=== PATIENT | female | born 1990 | race Caucasian/White ===

== ENCOUNTER 2025-08-14 17:32 | Inpatient (IN) ==
--- NOTE | 2025-08-14 18:01 | Emergency Department Note ---
Impression & Plan Depression with suicidal ideation, Anxiety, Superficial thrombophlebitis of left leg ED Provider Note Provider: Marquez Martinez MD CHIEF COMPLAINT: Anxiety and depression with suicidal thoughts HISTORY OF PRESENT ILLNESS: Patient is a 35-year-old female history of anxiety and depression in the past presenting here today with EMS from home. Patient states that she does not have much support. Cares for her 17-year-old autistic son he requires a lot of care. Has been off medication for several years has a distant history of inpatient psychiatric care for anxiety depression in the past. States her last several months things have worsened. Reached a breaking point where she is not functional and just anxious and feels like her heart beating out of her chest and numb all over. Was seen here about 2 weeks ago for a little bump in her left leg and was told she had a small clot here and to take Motrin but she only took this once she is afraid about the medicine. Patient states at times Ativan's helped her but she tries not to use it. Does not currently have counseling or other medication management at this time. Has had thoughts of wanting to harm herself and not be alive. 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 PAST MEDICAL HISTORY: As noted above MEDICATIONS: Reviewed SOCIAL HISTORY: Denies drug or alcohol use PHYSICAL EXAM: GENERAL: alert and oriented curled up holding her doll in the bed. Head: normocephalic and atraumatic EYES: No injection, discharge or icterus. NECK: Trachea midline. Supple. ENT: Mucous membranes pink and moist. Pharynx without erythema or exudate. LUNGS: Airway patent. No retractions. Breath sounds clear with good air entry bilaterally. HEART: Regular tachycardic rate and rhythm. No chest wall tenderness SKIN: Acyanotic, warm, dry, without rashes EXTREMITIES: Without swelling, tenderness or deformity with a small area of the left kim with slight tenderness but no redness or wound. NEUROLOGICAL: No focal deficits. No aphasia. No facial droop or slurred speech. Ambulatory. Psych: Anxious and tremulous at times. Endorses SI. No reports of HI or hallucinations. Has some insight into limitations of Ativan for her long-term treatment. EK bpm what appears to be a sinus rhythm with significant baseline artifact from tremor. No acute ST segment elevation or depression noted with a QTc of 440. EK bpm normal sinus rhythm. No PVC or PAC. No acute ST segment elevation or depression with QTc of 406. Patient's laboratory studies and imaging reviewed. Differential includes Mood disorder, infection, hypoglycemia, electrolyte abnormalities, cardiac sources, intracerebral event, toxicologic, trauma, neurologic, as well as other pathologies. IMPRESSION/MEDICAL DECISION MAKING: Limited social supports. History of mental health illness and anxiety and depression. Now having SI with severe anxiety issues. Discussed with her and offered Ativan to see if that helped here. Discussed given her thoughts when to harm her self would recommend inpatient treatment. Will obtain basic blood work here. EKG is obtained. I doubt this represents PE at this time or true arrhythmia however. Symptoms seem consistent with anxiety issues. Given that she did have a small recent superficial thrombus of the left leg and still some slight tenderness there an ultrasound was completed to look for any change in this. Again I do not believe this represents PE. EKG obtained initially first 1 with significant baseline artifact and repeated after the Ativan. This was much improved and now without the tremor clearly is not A flutter. Blood work without significant anemia or leukocytosis. Negative troponin. Negative . No significant electrolyte abnormality or renal dysfunction noted. Negative aspirin/Tylenol/alcohol level. Venous ultrasound shows stability of previous superficial venous thrombus still less than 5 cm and very superficial without evidence of DVT. No indication for anticoagulation. Discussed with her continued monitoring, reevaluation in a week and use of NSAIDs. Again she has not been following along with this and recommended she do follow-up in a week for repeat ultrasound to ensure no extension and hopeful resolution. Case management assisted with bed placement. Referrals were made for voluntary inpatient treatment. Accepted to [facility] for voluntary inpatient treatment. DIAGNOSIS: Depression with suicidal ideation, anxiety DISPOSITION: [facility] for voluntary inpatient treatment. Past Med/Surg History Problem List (Updated 08/14/25 @ 23:28 by Marquez Martinez M.D.) Anxiety (Acute) Depression with suicidal ideation (Acute) Superficial thrombophlebitis of left leg (Acute) Medical History Trichomonal vaginitis Social History Smoking Status: Never smoker Preferred Language: Icelandic Feels Safe at Home: Yes Gender Identity: Female Allergies Allergies Allergy/AdvReac Type Severity Reaction Status Date / Time No Known Allergies Allergy Verified 08/01/25 23:59 Home Meds Home Medications Medication Instructions Recorded Confirmed albuterol sulfate 90 mcg/actuation 1 - 2 inh inhalation DIRECTED 08/01/25 08/02/25 aerosol inhaler PRN Shortness Of Breath Or Wheezing lorazepam 1 mg tablet 1 mg PO BID PRN Anxiety 08/01/25 08/02/25 Previous Rx's Medication Instructions Recorded ibuprofen 800 mg tablet 800 mg PO Q8H #90 tabs 08/02/25 Results & Data (ED) Vital Signs Vital Signs - 24 hr 08/14/25 17:38 08/14/25 17:38 08/14/25 20:47 Temperature 36.6 C 36.6 C Temperature Source Oral Oral Pulse Rate 90 Pulse Rate [Right Finger] 90 83 Respiratory Rate 18 20 15 Respiratory Effort / Characteristics Non-Labored Spontaneous Respiratory Depth Normal Blood Pressure 116/88 Blood Pressure [Left Arm] 116/88 96/64 L Blood Pressure Mean 97 Blood Pressure Mean [Left Arm] 97 74 Blood Pressure Position [Left Arm] Right Lateral Pulse Oximetry 99 99 96 Oxygen Delivery Method Room Air Room Air Room Air Sepsis Recent Fever Within 48 Hours No Sepsis New/Unexplained Change in Mental Status No Sepsis Action Taken by Nursing No Action Required 08/14/25 23:24 Temperature Temperature Source Pulse Rate Pulse Rate [Right Finger] Respiratory Rate Respiratory Effort / Characteristics Non-Labored Respiratory Depth Normal Blood Pressure Blood Pressure [Left Arm] Blood Pressure Mean Blood Pressure Mean [Left Arm] Blood Pressure Position [Left Arm] Pulse Oximetry Oxygen Delivery Method Sepsis Recent Fever Within 48 Hours Sepsis New/Unexplained Change in Mental Status Sepsis Action Taken by Nursing Laboratory Data 08/14/25 18:27 08/14/25 18:27 Lab Results 08/14/25 08/14/25 08/14/25 Range/Units 18:27 18:38 19:18 WBC 9.19 (4.8-10.8) K/ul RBC 5.26 (4.20-5.40) M/uL Hgb 12.0 (12.0-16.0) g/dl Hct 38.4 (37.0-47.0) % MCV 73.0 L (80.0-100.0) fL MCH 22.8 L (25.0-34.0) pg MCHC 31.3 L (32.0-36.0) g/dL RDW Std Deviation 42.7 (36.4-46.3) fL RDW Coeff of [place]ouch[place] 16.8 H (11.5-14.5) % Plt Count 230 (130-400) K/uL Immature Gran % (Auto) 0.1 % Neut % (Auto) 60.7 % Lymph % (Auto) 29.1 % Daw[place] % (Auto) 9.0 % Eos % (Auto) 0.3 % Baso % (Auto) 0.8 % Neut # (Auto) 5.58 (1.40-6.50) K/uL Lymph # (Auto) 2.67 (1.20-3.40) K/uL Daw[place] # (Auto) 0.83 H (0.11-0.59) K/uL Eos # (Auto) 0.03 (0.00-0.50) K/uL Baso # (Auto) 0.07 (0.00-0.20) K/uL Immature Gran # (Auto) 0.01 (0.01-0.20) K/uL Sodium 138 (136-145) mmol/L Potassium 3.3 L (3.5-5.1) mmol/L Chloride 105 (98-107) mmol/L Carbon Dioxide 24 (21-32) mmol/L Anion Gap 9 (3-11) BUN 13 (6-23) mg/dl Creatinine 0.56 L (0.6-1.2) mg/dl Est Cr Clr Drug Dosing Not Reportable eGFR 120.47 BUN/Creatinine Ratio 23.2 H (10-20) Glucose 120 H (70-99(Fasting)) mg/dl Calcium 9.2 (8.6-10.3) mg/dl Total Bilirubin 0.3 (0.2-1.0) mg/dl AST 13 (13-39) U/L ALT 12 (7-52) U/L Alkaline Phosphatase 62 (34-104) U/L Troponin I High Sens < 2.3 (0-14) pg/ml Total Protein 8.1 (6.0-8.3) gm/dl Albumin 4.3 (3.4-5.0) gm/dl Globulin 3.8 (2.5-4.0) gm/dl Albumin/Globulin Ratio 1.1 (0.9-2) TSH 1.012 (0.300-4.500) uIu/ml HCG, Qual Negative (Negative) Urine Color Yellow Urine Appearance Clear (Clear) Urine pH 8.5 H (4.5-7.5) Ur Specific [place] 1.027 (1.000-1.030) Urine Protein Trace H (Negative) Urine Glucose (UA) Negative (Negative) Urine Ketones Trace H (Negative) Urine Blood 1+ H (Negative) Urine Nitrite Negative (Negative) Urine Bilirubin Negative (Negative) Urine Urobilinogen Negative (Negative) Ur Leukocyte Esterase Negative (Negative) Urine WBC (Auto) 0-5 (0-5) /hpf Urine RBC (Auto) 3-5 H (0-2) /hpf U Hyaline Cast (Auto) 0-2 (0-2) /lpf U Epithel Cells (Auto) 3-5 H (0-2) /hpf Urine Bacteria (Auto) None Seen (None Seen) Urine Comment Salicylates < 3.0 L (3.0-30) mg/dl Urine Opiates Screen Neg (Neg) Ur Methadone, Qual Neg (Neg) Urine Fentanyl Screen Neg (Neg) Acetaminophen < 3 L (10-30) ug/ml Urine Barbiturates Neg (Neg) Ur Phencyclidine (PCP) Neg (Neg) U Amphetamin/Meth Scrn Neg (Neg) MDMA (Ecstasy) Screen Neg (Neg) U Benzodiazepines Scrn Neg (Neg) Ur Cocaine Metabolite Neg (Neg) U Marijuana (THC) Screen Neg (Neg) Ethyl Alcohol mg/dL < 10.0 (<10.0) mg/dl SARS-CoV-2, RNA, NAAT NEGATIVE (NEGATIVE) Administered Medications Discontinued Medications Lorazepam (Lorazepam 1 Mg Tab) 1 mg PO NOW STA Stop: 08/14/25 17:58 Last Admin: 08/14/25 18:27 Dose: 1 mg Documented By: DAYAMI Imaging Data Radiologist's Impression: Venous Doppler Study 08/14/25 17:57 Exam(s): US VENOUS LEFT LOWER EXTREMITY EXAM: US Duplex Left Lower Extremity Veins CLINICAL HISTORY: swelling, pain, superficial. TECHNIQUE: Real-time duplex ultrasound scan of the left lower extremity veins integrating B-mode two-dimensional vascular structure, Doppler spectral analysis, color flow Doppler imaging and compression. COMPARISON: Left lower extremity venous duplex 08/01/2025 FINDINGS: Deep veins: Unremarkable. No DVT in the visualized common femoral, femoral, proximal deep femoral or popliteal veins. The veins demonstrate normal color flow, are normally compressible, with normal phasic flow and/or augmentation response. The interrogated calf veins are patent. Superficial veins: The previously noted superficial thrombosed vessel immediately deep to the skin surface in the clinical area of concern remains occluded and stable in appearance. No significant soft tissue abnormality identified. No thrombus in the saphenofemoral junction. Soft tissues: No popliteal cyst. IMPRESSION: Negative left lower extremity duplex evaluation. No alteration from the prior examination. Electronically signed by: Darrel Solis MD 08/14/25 21:31 PM Discharge Plan Visit Data Chief Complaint: Mental Health Evaluation Stated Complaint: [facility] ED Provider: Marquez Martinez Discharge Problem: Depression with suicidal ideation, Anxiety, Superficial thrombophlebitis of left leg Patient Disposition: Transfer Behavioral Health Fac Condition: Fair Forms Stand Alone Forms: [facility], Suicide Prevention Resources Prescriptions Prescriptions: No Action lorazepam 1 mg tablet 1 mg PO BID PRN (Reason: Anxiety) albuterol sulfate 90 mcg/actuation Hfa Aerosol Inhaler 1 - 2 inh INHALATION DIRECTED PRN (Reason: Shortness Of Breath Or Wheezing) ibuprofen 800 mg tablet 800 mg PO Q8H Qty: 90 0RF Referrals Referrals: Jose Rahman MD [Primary Care Provider] -
[2025-08-14] MEDS: LORazepam 1 MG TAB PO STA (18:27)
[2025-08-14 18:57] LABS: Hematocrit (blood only) 38.4 % (37.0-47.0); Hemoglobin 12.0 g/dl (12.0-16.0); Mean Corpuscular Hemoglobin 22.8 pg (25.0-34.0); Mean Corpuscular Volume 73.0 fL (80.0-100.0); Platelet Count 230 K/uL (130-400); RDW Standard Deviation 42.7 fL (36.4-46.3); Red Blood Count 5.26 M/uL (4.20-5.40); White Blood Count 9.19 K/ul (4.8-10.8)
[2025-08-14 19:01] LABS: Alanine Aminotransferase 12 U/L (7-52); Albumin Globulin Ratio 1.1 (0.9-2); Albumin Level 4.3 gm/dl (3.4-5.0); Alkaline Phosphatase 62 U/L (34-104); Anion Gap 9 (3-11); Bilirubin,Total 0.3 mg/dl (0.2-1.0); Blood Urea Nitrogen 13 mg/dl (6-23); Calcium 9.2 mg/dl (8.6-10.3); Carbon Dioxide 24 mmol/L (21-32); Chloride 105 mmol/L (98-107); Globulin 3.8 gm/dl (2.5-4.0); Glucose 120 mg/dl (70-99(Fasting)); Potassium 3.3 mmol/L (3.5-5.1); Pregnancy Test, Serum Negative (Negative); Sodium 138 mmol/L (136-145); Total Protein 8.1 gm/dl (6.0-8.3)
[2025-08-14 19:02] LABS: Immature Granulocytes # (auto) 0.01 K/uL (0.01-0.20); Immature Granulocytes % (auto) 0.1 %
[2025-08-14 19:03] LABS: Acetaminophen < 3 ug/ml (10-30); Salicylate < 3.0 mg/dl (3.0-30)
[2025-08-14 19:16] LABS: Thyroid Stimulating Hormone 1.012 uIu/ml (0.300-4.500)
[2025-08-14 19:46] LABS: Appearance Urine Clear (Clear); Bacteria Urine Automated None Seen (None Seen); Cast Urine Automated 0-2 /lpf (0-2); Glucose Urine UA Negative (Negative); WBC Urine Automated 0-5 /hpf (0-5)
[2025-08-14 20:35] LABS: Amphetamines+Metham, Urine Neg (Neg); MDMA (Ecstacy), Urine Neg (Neg); Marijuana, Urine Neg (Neg)
--- NOTE | 2025-08-14 21:31 | Ultrasound Report ---
Exam(s): US VENOUS LEFT LOWER EXTREMITY EXAM: US Duplex Left Lower Extremity Veins CLINICAL HISTORY: swelling, pain, superficial. TECHNIQUE: Real-time duplex ultrasound scan of the left lower extremity veins integrating B-mode two-dimensional vascular structure, Doppler spectral analysis, color flow Doppler imaging and compression. COMPARISON: Left lower extremity venous duplex 08/01/2025 FINDINGS: Deep veins: Unremarkable. No DVT in the visualized common femoral, femoral, proximal deep femoral or popliteal veins. The veins demonstrate normal color flow, are normally compressible, with normal phasic flow and/or augmentation response. The interrogated calf veins are patent. Superficial veins: The previously noted superficial thrombosed vessel immediately deep to the skin surface in the clinical area of concern remains occluded and stable in appearance. No significant soft tissue abnormality identified. No thrombus in the saphenofemoral junction. Soft tissues: No popliteal cyst. IMPRESSION: Negative left lower extremity duplex evaluation. No alteration from the prior examination. Electronically signed by: Darrel Solis MD 08/14/25 21:31 PM
[2025-08-14] MEDS ORDERED: MAGNESIUM HYDROXIDE SUSP 30 ML UDC PO PRN (23:50)
[2025-08-14] MEDS ORDERED: SODIUM CHLORIDE 0.65% NA SOLN 45 ML (OCEAN) PRN (23:50)
[2025-08-14] MEDS ORDERED: BISMUTH SUBSALICYLATE 262 MG CHEW PO PRN (23:50)
[2025-08-14] MEDS ORDERED: ALUMINUM/MAGNESIUM SUSP 30 ML UDC PO PRN (23:50)
[2025-08-14] MEDS ORDERED: ACETAMINOPHEN 325 MG TAB PO PRN (23:50)
[2025-08-15] MEDS: LORazepam 0.5 MG TAB PO STA (02:17)
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
[2025-08-15] MEDS: OPTIRAY 320 125ml IV ONE (14:12)
--- NOTE | 2025-08-15 14:42 | CT Scan Report ---
CT angio chest PE protocol CT DOSE: 328.35 mGy.cm HISTORY: 35 years-old Female with PE. Acute shortness of breath with chest pain TECHNIQUE: Multiple CTA images of the chest were obtained after the intravenous administration of 70 ml Optiray. Coronal and sagittal MIPS were obtained from the axial data set and were submitted for r eview. All measurements were obtained according to NASCET criteria. A dose lowering technique was ut ilized adhering to the principles of ALARA. COMPARISON: CT abdomen and pelvis 12/31/2024 FINDINGS: CTA: Heart is normal in size. No pericardial effusion. Unremarkable thoracic aorta. No pulmonary emboli ar e seen. CT CHEST: No dominant thyroid nodule is seen. Residual thymic tissue in the anterior mediastinum. No pathologic ally adenopathy by CT size criteria. There is no pneumothorax, pleural effusion or focal airspace co nsolidation. The imaged upper abdominal structures are normal. Ovoid soft tissue attenuating mass within the infe romedial quadrant left breast on image 50 series 4 measures 1.5 cm, unchanged. There is an additional 1.2 cm mass within the superior medial right breast with central calcification versus biopsy clip. T he osseous structures appear intact. IMPRESSION: 1. No acute intrathoracic abnormality. 2. No pulmonary emboli. 2. Bilateral breast lesions as above. ACT 112: Negative or not required by law. The above report was generated using voice recognition software. It may contain grammatical, syntax o r spelling errors. Electronically signed by: Quintin Rudd M.D. 08/15/2025 2:40 PM
--- NOTE | 2025-08-15 16:00 | Hospitalist Consultation ---
Date of Consultation August 15, 2025 Assessment & Plan (1) Tachycardia: (2) Superficial thrombophlebitis of left leg: Patient is a 35-year-old female with past medical history significant for seasonal allergic rhinitis, mild intermittent asthma, dysfunctional uterine bleeding, HPV infection, generalized anxiety disorder, depression and borderline personality disorder who is being seen in consultation for evaluation of tachycardia in the setting of recently diagnosed LLE superficial thrombophlebitis. Diagnosed with 1-2 mm clotted superficial vein in the left lower extremity c/w superficial thrombophlebitis on 08/01/2025. Symptomatic management advised. Presented to the ED yesterday with anxiety depression with suicidal ideations. Admitted to the BHU overnight. Had repeat left lower extremity venous Doppler US done yesterday: no DVT, stable appearance of previously seen superficial thrombosed vessel. -No indication for anticoagulation per discussion with ED provider given thrombus still measuring less than 5 cm and very superficial without evidence of DVT. Patient denies any SOB, no reported hypoxic events. Was noted to be tachycardic with heart rate in the 110s to 130s this morning which we were consulted for further evaluation of. Chest CTA PE protocol was obtained and negative for PE, no acute intrathoracic abnormality. Suspect tachycardia related to social stressors, anxiety. Recommend continued symptomatic management of superficial thrombophlebitis including warm compresses, as needed NSAIDs, extremity elevation and compression stocking application. (3) Lesion of breast: Bilateral breast lesions incidentally noted on chest CTA. -1.5 cm ovoid soft tissue attenuating mass within the inferomedial quadrant of the left breast. -1.2 cm mass within the superior medial right breast with central c alcification. Above findings discussed with the patient. Patient reports having a previous biopsy of the left breast lesion "a long time ago" which came back unremarkable per her recollection. Will need close PCP follow-up to arrange gynecologic evaluation for mammogram evaluation and/or breast US with possible biopsy. Thank you for this consultation. We will continue to follow the patient with you tomorrow. You can reach a member of the [facility]ist Team 17/05 via bewarket. DVT Prophylaxis: SCDs/TEDs Code Status: FULL CODE PCP: Jose Rahman MD Disposition: DC planning as per [facility] services Will coordinate PCP follow-up with our nurse navigator for further evaluation of the above breast lesions. Patient seen in collaboration with Dr. Mayo. Please see addendum. I spent a total of 52 minutes coordinating, documenting, and providing care for this patient excluding time spent in the performance of separately billed services or time spent by another provider/QHP. This included personally reviewing all current laboratories and imaging studies, medical reconciliation, outpatient chart review and discussion with specialists. This chart was completed in part utilizing Speech Voice Recognition Software. Grammatical errors, random word insertions, pronoun errors, and incomplete sentences are an occasional consequence of this system due to software limitations, ambient noise, and hardware issues. Any formal questions or concerns about the content, text, or information contained within the body of this dictation should be directly addressed to the provider for clarification. Supervising Physician Co-Signing Physician Notes Pt seen and examined by me, jonas coordinated w/ Rossy Alba PA-C, pls refer to her note above for further detail. Pt is a 35-yo F with medical history significant for seasonal allergic rhinitis, mild intermittent asthma, dysfunctional uterine bleeding, HPV infection, generalized anxiety disorder, depression and borderline personality disorder who is being seen in consultation for evaluation of tachycardia and recently diagnosed LLE superficial thrombophlebitis. History obtained from the patient and associated chart review. Patient seen and examined in the U. Doppler ultrasound completed on 08/01/2025 which showed a 1-2 mm clotted superficial vein on the lateral aspect. Patient had a repeat left lower extremity venous Doppler ultrasound completed yesterday which was negative for DVT, stable superficial thrombosed vessel immediately deep to the skin surface where previously seen on prior study. We were consulted to evaluate patient due to development of tachycardia. No reported SOB or hypoxic events. Patient feeling quite anxious. Was admitted to U overnight due to anxiety and depression with suicidal ideations. CT PE obtained and negat. for PE. + breast masses Currently pt is sitting up in chair in NAD, was playing cards in room.She is awake, alert, oriented, answers appropriately. Denies any chest pain or difficulty taking a deep breath. Says her thrombophlebitis is feeling better overall, less noticable and less painful as it was some weeks ago. Lungs are clear to auscultation and heart sounds are regular, not tachycardic during my exam. No LE edema, no erythema. Discussed CT findings. Says she is aware of mass of left breast and was told before that it was benign. Not aware of anything on the right breast. Made pt aware that she will need to follow up w/ PCP further, pt in understanding. Will follow up w/ pt tmrw, will follow bloodwork and vital signs, / any changes. If no changes in status, may sign off tmrw. MD Gael History of Present Illness Reason for Consultation: Tachycardia, LLE superficial thrombophlebitis Requesting Physician: Macey Blackmon DO Attending Physician: Macey Balckmon DO History of Present Illness Patient is a 35-year-old female with past medical history significant for seasonal allergic rhinitis, mild intermittent asthma, dysfunctional uterine bleeding, HPV infection, generalized anxiety disorder, depression and borderline personality disorder who is being seen in consultation for evaluation of tachycardia and recently diagnosed LLE superficial thrombophlebitis. History obtained from the patient and associated chart review. Patient seen and examined in the BHU with Dr. Mayo. Recently diagnosed with superficial thrombophlebitis of the left lower extremity. Had left lower extremity venous Doppler ultrasound completed on 08/01/2025 which showed a 1-2 mm clotted superficial vein on the lateral aspect. Patient had a repeat left lower extremity venous Doppler ultrasound completed yesterday which was negative for DVT, stable superficial thrombosed vessel immediately deep to the skin surface where previously seen on prior study. We were consulted to evaluate patient due to development of tachycardia. No reported SOB or hypoxic events. Patient feeling quite anxious. Was admitted to BHU overnight due to anxiety and depression with suicidal ideations. Allergies Allergy/AdvReac Type Severity Reaction Status Date / Time No Known Allergies Allergy Verified 08/01/25 23:59 Home Medications Medication Instructions Recorded Confirmed Type albuterol sulfate 90 mcg/actuation 1 - 2 inh inhalation DIRECTED 08/01/25 08/15/25 History aerosol inhaler PRN Shortness Of Breath Or Wheezing ibuprofen 800 mg tablet 800 mg PO Q8H #90 tabs 08/02/25 08/15/25 Rx clindamycin phosphate 1 % lotion topical 08/15/25 History Patient History Medical History Trichomonal vaginitis Social History Smoking Status: Former smoker Preferred Language: Sudanese Communication Ability: Effective [employer] Judge Required: No Beliefs That Will Affect Care: None Feels Safe at Home: Yes Gender Identity: Female Assistive Devices: Glasses Review of Systems Review of Systems: At least ten systems reviewed and negative, except as noted in the HPI. Physical Exam Physical Exam: Please refer to Dr. Mayo's addendum for physical examination findings. Results & Data Results & Data Vital Signs (Past 12 Hours) Vital Signs Temp Pulse Resp BP 08/15/25 06:27 132 H 100/69 08/15/25 06:26 36.8 C 116 H 16 119/71 Laboratory Results Short CBC 08/14/25 Range/Units 18:27 WBC 9.19 (4.8-10.8) K/ul Hgb 12.0 (12.0-16.0) g/dl Hct 38.4 (37.0-47.0) % Plt Count 230 (130-400) K/uL BMP 08/14/25 18:27 Sodium 138 Potassium 3.3 L Chloride 105 Carbon Dioxide 24 BUN 13 Creatinine 0.56 L Glucose 120 H Calcium 9.2 Liver Function 08/14/25 Range/Units 18:27 Total Bilirubin 0.3 (0.2-1.0) mg/dl AST 13 (13-39) U/L ALT 12 (7-52) U/L Alkaline Phosphatase 62 (34-104) U/L Albumin 4.3 (3.4-5.0) gm/dl Urine 08/14/25 Range/Units 19:18 Urine Color Yellow Urine Appearance Clear (Clear) Urine pH 8.5 H (4.5-7.5) Ur Specific [place] 1.027 (1.000-1.030) Urine Protein Trace H (Negative) Urine Glucose (UA) Negative (Negative) Diagnostic Findings Venous Doppler Study 08/14/25 17:57 Exam(s): US VENOUS LEFT LOWER EXTREMITY EXAM: US Duplex Left Lower Extremity Veins CLINICAL HISTORY: swelling, pain, superficial. TECHNIQUE: Real-time duplex ultrasound scan of the left lower extremity veins integrating B-mode two-dimensional vascular structure, Doppler spectral analysis, color flow Doppler imaging and compression. COMPARISON: Left lower extremity venous duplex 08/01/2025 FINDINGS: Deep veins: Unremarkable. No DVT in the visualized common femoral, femoral, proximal deep femoral or popliteal veins. The veins demonstrate normal color flow, are normally compressible, with normal phasic flow and/or augmentation response. The interrogated calf veins are patent. Superficial veins: The previously noted superficial thrombosed vessel immediately deep to the skin surface in the clinical area of concern remains occluded and stable in appearance. No significant soft tissue abnormality identified. No thrombus in the saphenofemoral junction. Soft tissues: No popliteal cyst. IMPRESSION: Negative left lower extremity duplex evaluation. No alteration from the prior examination. Electronically signed by: Darrel Solis MD 08/14/25 21:31 PM Chest CTA 08/15/25 11:07 CT angio chest PE protocol CT DOSE: 328.35 mGy.cm HISTORY: 35 years-old Female with PE. Acute shortness of breath with chest pain TECHNIQUE: Multiple CTA images of the chest were obtained after the intravenous administration of 70 ml Optiray. Coronal and sagittal MIPS were obtained from the axial data set and were submitted for review. All measurements were obtained according to NASCET criteria. A dose lowering technique was utilized adhering to the principles of ALARA. COMPARISON: CT abdomen and pelvis 12/31/2024 FINDINGS: CTA: Heart is normal in size. No pericardial effusion. Unremarkable thoracic aorta. No pulmonary emboli are seen. CT CHEST: No dominant thyroid nodule is seen. Residual thymic tissue in the anterior mediastinum. No pathologically adenopathy by CT size criteria. There is no pneumothorax, pleural effusion or focal airspace consolidation. The imaged upper abdominal structures are normal. Ovoid soft tissue attenuating mass within the inferomedial quadrant left breast on image 50 series 4 measures 1.5 cm, unchanged. There is an additional 1.2 cm mass within the superior medial right breast with central calcification versus biopsy clip. The osseous structures appear intact. IMPRESSION: 1. No acute intrathoracic abnormality. 2. No pulmonary emboli. 2. Bilateral breast lesions as above. ACT 112: Negative or not required by law. The above report was generated using voice recognition software. It may contain grammatical, syntax or spelling errors. Electronically signed by: Quintin Rudd M.D. 08/15/2025 2:40 PM
--- NOTE | 2025-08-16 05:43 | Electrocardiogram Report ---
Test Reason : Blood Pressure : */* mmHG Vent. Rate : 93 BPM Atrial Rate : 394 BPM P-R Int : * ms QRS Dur : 74 ms QT Int : 354 ms P-R-T Axes : 75 88 40 degrees QTcB Int : 440 ms Poor data quality, interpretation may be adversely affected Possible Sinus rhythm with sinus arrhythmia Nonspecific ST abnormality Abnormal ECG When compared with ECG of 26-Apr-2024 20:47, Artifact is now present, which affects rhythm interpretation Confirmed by Cosme Desai ([id number]) on 08/16/2025 5:43:34 AM Referred By: REFERRED SELF Confirmed By: Cosme Desai
--- NOTE | 2025-08-16 05:44 | Electrocardiogram Report ---
Test Reason : Blood Pressure : */* mmHG Vent. Rate : 75 BPM Atrial Rate : 75 BPM P-R Int : 154 ms QRS Dur : 80 ms QT Int : 364 ms P-R-T Axes : 46 51 49 degrees QTcB Int : 406 ms Normal sinus rhythm Normal ECG When compared with ECG of 14-Aug-2025 18:34, Artifact is no longer present Confirmed by Cosme Desai ([id number]) on 08/16/2025 5:43:56 AM Referred By: REFERRED SELF Confirmed By: Cosme Dseai
[2025-08-16 08:15] LABS: Anion Gap 6.0 (3-11); Blood Urea Nitrogen 8.0 mg/dl (6-23); Calcium 8.7 mg/dl (8.6-10.3); Carbon Dioxide 27.0 mmol/L (21-32); Chloride 105.0 mmol/L (98-107); Creatinine Clr Calc Pharmacy 145.4 ml/min; Glucose 104.0 mg/dl (70-99(Fasting)); Potassium 3.9 mmol/L (3.5-5.1); Sodium 138.0 mmol/L (136-145)
[2025-08-16 08:17] LABS: Hematocrit (blood only) 34.1 % (37.0-47.0); Hemoglobin 11.0 g/dl (12.0-16.0); Mean Corpuscular Hemoglobin 23.7 pg (25.0-34.0); Mean Corpuscular Volume 73.3 fL (80.0-100.0); Platelet Count 171 K/uL (130-400); RDW Standard Deviation 42.3 fL (36.4-46.3); Red Blood Count 4.65 M/uL (4.20-5.40); White Blood Count 6.43 K/ul (4.8-10.8)
--- NOTE | 2025-08-16 08:46 | Psychiatric Progress Note ---
Date of Service August 16, 2025 Impression / Recommendations Impression PRASHANT SCHMIDT is a 35-year-old F who currently lives in at home with her 17 y/o son, has a history of depression and anxiety, and was admitted on 08/14/25 23:45 on a 201 voluntary commitment for SI without plan or intent, in the setting of daily panic attacks over the past two weeks, and medication nonadherence over the past 2 years. Diagnostically consistent with severe panic disorder and MDDR, severe. BPD also a possibility. Discussed at length the pharmacologic options for treatment, including primarily returning to Zoloft (if pt is willing to tolerate possible weight gain, trying a different SSRI such as Prozac (which is typically weight neutral), or switching to SNRI class (like Cymbalta). Reviewed R/B of all options. Pt stated she wanted to consider and did not want to decide until the end of the day. I met with her a second time, and she wanted to try Prozac. A: Spent a significant amount of time with patient offering validation of fear, and encouragement. Utilized CBT to address cognitive distortions, and also identified pattern of feeling like a "burden" quickly in relationships. Encouraged pt to utilize propranolol, given sx of high anxiety, and concerns about increased HR and BP earlier today. Reviewed R/B/AE of both propranolol and prozac again. Pt agreed to give Prozac more time. Hospital medicine consult much appreciated, and social work is initiating contact with PCP's office, to get mammogram ordered W[facility]. (1) Panic disorder: (2) Major depressive disorder, recurrent severe without psychotic features: (3) Superficial thrombophlebitis of left leg: Plan 08/16/25: continue current treatment and medications, and give more time. 08/15/25: The patient was admitted to the [facility] ([facility] inpatient mental health unit) on q15 min checks (behavioral with suicide precautions) for safety. The patient will participate in group, recreational, and milieu therapies and will be offered additional individual and family sessions as clinically appropriate. Meds started: Prozac 10mg in AM propranolol 10mg TID PRN anxiety (hold if SBP<100) Home meds continued: none Hospital medicine consult - they ordered CT chest to r/o PE. Overall, I spent a total of 35 minutes on this patients care, including direct evaluation of the patient, counseling the patient, ordering medication, coordination with nursing, interdisciplinary team meeting, and documentation. Inventory Assets Strengths: help seeking Needs: outpatient providers, caregiver support Suicide Risk Level Suicide Risk Level: High-Moderate (q15 min suicide checks) Suicide Risk Level Comments: High-moderate given high level of distress, acute and chronic SI, with hx of multiple suicide attempts and hospitalizations in the past. Does deny recent intent or plan. Does report she feels safe on the unit and can reach out to stay if SI worsens or if pt is unable to maintain safety. Risk Factors Assessment Male: No : Yes Do You Have Access To A Gun?: No Health Problems: Yes Mental Health Diagnoses: Yes Substance Use Disorders: No Previous Attempt: Yes Family History of Suicide: No Previous Psychiatric Hospitalization: Yes Hopelessness: Yes Protective Factors Assessment : No Responsible for Young Children: Yes (son is a minor, but now in CYS custody) Employed: Yes Supportive Family: No Interval History Identifying Information PRASHANT SCHMIDT is a 35-year-old F who currently lives in at home with her 17 y/o son, has a history of depression and anxiety, and was admitted on 08/14/25 23:45 on a 201 voluntary commitment for SI without plan or intent, in the setting of daily panic attacks over the past two weeks, and medication nonadherence over the past 2 years. Diagnostically consistent with severe panic disorder and MDDR, severe. BPD also a possibility. Chief Complaint "I just feel like I need more support". Review of Systems Sleep Information Total Hours of Sleep: 4.75 Sleep Comments: Admitted early in shift Meal Information Percent Meal Consumed - Breakfast: 50 Percent Meal Consumed - Lunch: 50 Percent Meal Consumed - Dinner: 75 Subjective Subjective Patient was seen & assessed and interval progress reviewed with [treatment team] [nursing and social work] per report: yesterday, hospital medicine informed pt of breast lesion seen in CT. She'll need PCP f/u slept 4.75 hours said roommate was snoring, and pt was upset slept in the safe room panic attack right after she was told she'd have a roommate, but said she did want a roommate said PA was due to be worried about starting prozac tearful, guarded mood 2-3/10, feeling "anxious" I met with pt privately in her room. She expressed very high anxiety. She did take prozac 10mg this AM, and "it didn't go well." Stated she at first felt fine, then by 3pm she was having side effects. However, she described AEs as panic attacks and a "head chavez" feeling. I reflected back that this is very similar to how she described anxiety symptoms leading up to this hospi talization. She was extremely worried that her SBP was up to 150 this AM, and HR has been up to 120s. She said she hasn't tried propranolol because she was too afraid. She also says that she's needed high doses of ativan, 1-2 mg, for effectiveness in the past. She reflected that "I think I need more support" from the staff, as she was told she had to wait a minute when she asked for assistance earlier. She also voiced concern that she is "a burden". Physical Exam Psychiatric Orientation: alert and oriented x 3 Apperance: appropriately dressed and appropriately groomed Eye Contact: good eye contact Motor Behavior: steady gait and station, no abnormal motor movements and + psychomotor agitation shaking and bouncing leg Speech: normal rate/rhythm/volume of speech Affect: + constricted affect Mood: + anxious mood Thought Process: goal directed thought process, linear/logical thought process and + perseveration Thought Content: + preoccupation and reality based without delusions Suicidal Thoughts: denies suicidal thoughts, denies suicidal plan and denies waters icidal intent Homicidal Thoughts: denies homicidal thoughts, denies homicidal plan and denies homicidal intent Hallucinations: no auditory hallucinations and no visual hallucinations Cognition: recent memory grossly intact, remote memory grossly intact, attention grossly intact and language grossly intact Estimated Intelligence: consistent with education level Insight: + fair insight Judgment: + fair judgement Vital Signs (Past 24 Hours) Last Vital Signs Temp 36.8 C 08/16/25 06:31 Pulse 114 H 08/16/25 06:32 Resp 16 08/16/25 06:31 BP 109/78 08/16/25 06:32 Pulse Ox 99 08/15/25 00:10 O2 Del Method Room Air 08/15/25 00:10 A physical exam was performed in the ED by Dr. Marquez Martinez for the purposes of medical clearance. I accept that physical as correct and adequate for the purposes of the inpatient physical exam. Results & Data ([facility]) Laboratory Results Laboratory Results - last 24 hr 08/16/25 07:33 WBC 6.43 RBC 4.65 Hgb 11.0 L Hct 34.1 L MCV 73.3 L MCH 23.7 L MCHC 32.3 RDW Std Deviation 42.3 RDW Coeff of [place]ouch[place] 16.1 H Plt Count 171 Sodium 138 Potassium 3.9 Chloride 105 Carbon Dioxide 27 Anion Gap 6 BUN 8 Creatinine 0.49 L Est Cr Clr Drug Dosing 145.4 eGFR 124.41 BUN/Creatinine Ratio 16.3 Glucose 104 H Calcium 8.7 Current Inpatient Medications Current Inpatient Medications: Current Inpatient Medications Acetaminophen (Acetaminophen 325 Mg Tab) 650 mg PO Q4H PRN PRN Reason: Headache or Minor Fever Stop: 09/13/25 23:49 Al Hydrox/Mg Hydrox/Simethicone (Aluminum/Magnesium Susp 30 Ml Udc) 30 ml PO Q4H PRN PRN Reason: GI Upset Stop: 09/13/25 23:49 Bismuth Subsalicylate (Bismuth Subsalicylate 262 Mg Chew) 2 tab PO Q30M PRN PRN Reason: Loose Stool/Diarrhea Stop: 09/13/25 23:49 Fluoxetine HCl (Fluoxetine Hcl 10 Mg Cap) 10 mg PO QAM EDIE Stop: 09/15/25 08:59 Lorazepam (Lorazepam 0.5 Mg Tab) 0.5 mg PO Q6 PRN PRN Reason: Anxiety Stop: 09/14/25 01:27 Magnesium Hydroxide (Magnesium Hydroxide Susp 30 Ml Udc) 30 ml PO DAILY PRN PRN Reason: Constipation Stop: 09/13/25 23:49 Propranolol HCl (Propranolol Hcl 10 Mg Tab) 10 mg PO TID PRN PRN Reason: Anxiety Stop: 09/14/25 13:59 Sodium Chloride (Sodium Chloride 0.65% Na Soln 45 Ml ([facility])) 1 - 2 sprays NA PRN PRN PRN Reason: Nasal Dryness/Congestion Stop: 09/13/25 23:49 Mental Health & Subst Abuse Tx Therapist Name of Therapist: Maggi (Intake) - In person Therapist's Date of Therapist Appointment: 09/18/25 Time of Therapist Appointment: 3:30PM arrival, 4PM appt Therapy Appointment Comment: [address], [address], [place] [address] Mail Inserter Name of Mail Inserter: Pam at [facility] and Maxine at [employer] Post Discharge Appointments Primary Care Physician Name Of Family Doctor/PCP: Dr. Jose Rahman ([facility]) Primary Care Provider Appointment Comment: [address], [place] [id number] Contact Information Discharge Discharge Address: [address] [place] [address] [address] [place] [id number]
--- NOTE | 2025-08-16 13:53 | Hospitalist Progress Note ---
Date of Service August 16, 2025 Assessment & Plan (1) Tachycardia: (2) Superficial thrombophlebitis of left leg: Plan: Patient is a 35-year-old female with past medical history significant for seasonal allergic rhinitis, mild intermittent asthma, dysfunctional uterine bleeding, HPV infection, generalized anxiety disorder, depression and borderline personality disorder who is being seen in consultation for evaluation of tachycardia in the setting of recently diagnosed LLE superficial thrombophlebitis. Diagnosed with 1-2 mm clotted superficial vein in the left lower extremity c/w superficial thrombophlebitis on 08/01/2025. Symptomatic management advised. Presented to the ED 08/14/25 with anxiety depression with suicidal ideations. Admitted to the [facility] overnight on 08/15 Had repeat left lower extremity venous Doppler US done yesterday: no DVT, stable appearance of previously seen superficial thrombosed vessel. -No indication for anticoagulation given thrombus still measuring less than 5 cm and very superficial without evidence of DVT. Patient denies any SOB, no reported hypoxic events. Pt initially was tachycardic with heart rate in the 110s to for which medicine was consulted for further evaluation of. Chest CTA PE protocol was obtained and negative for PE, no acute intrathoracic abnormality. Suspect tachycardia related to social stressors, anxiety. Recommend continued symptomatic management of superficial thrombophlebitis including warm compresses, as needed NSAIDs, extremity elevation and compression stocking application. (3) Lesion of breast: Plan: Bilateral breast lesions incidentally noted on chest CTA. -1.5 cm ovoid soft tissue attenuating mass within the inferomedial quadrant of the left breast. -1.2 cm mass within the superior medial right breast with central calcification. Above findings discussed with the patient. Patient reports having a previous biopsy of the left breast lesion "a long time ago" which came back unremarkable per her recollection. Will need close PCP follow-up to arrange gynecologic evaluation for mammogram evaluation and/or breast US with possible biopsy. She may require general surgery evaluation for breast biopsy. Discussed follow up with VETERINARY MEDICINE DOCTOR and set up mammography prior to discharge to ensure she is not lost to follow up. Pt reports a paternal aunt with breast cancer at age 55, would also recommend genetic counseling evaluation to determine what he risks are for such and closer monitoring. Thank you for this consultation. Medicine will sign off at this time. Please reach out with any concerns or questions or updates needed during her stay here in the hospital. Admission and Anticipated Discharge Date Admission Date: August 14, 2025 Subjective Patient is seen and examined this morning on behavioral health unit 3 S., for she is wrapped up in a blanket holding laptop stuffed animal. When sits down to discuss her knee is bouncing with significant anxiety. She states that she feels worried about starting her new medication this morning, Prozac 10 mg. She has worry about adverse effects. Patient states she has not yet received warm compress for superficial venous thrombosis, we again went over her CTA of the chest reviewing that she does not have a pulmonary emboli. Breast mass was discussed , She reports having history of breast fibroids in the past where they were previously evaluated. patient notes a paternal aunt had breast cancer at age 55, is unaware if she has had genetic testing.She was encouraged to follow-up with PCP, Discussed with VETERINARY MEDICINE DOCTOR regarding genetic testing for breast cancer genes including BRCA1, BRCA2 and have annual mammography. Would recommend that she is scheduled for outpatient mammogram within 6 months prior to her discharge for ease of scheduling/compliance. Can also consider breast ultrasound for further evaluation. 10 point reviewed and otherwise negative. Physical Exam Physical Exam: General: awake, alert, no apparent distress, Thin white female, obviously anxious with blanket wrapped around her, holding stuffed animal, bouncing her leg throughout conversation. Head: Normocephalic, atraumatic ENT: PERRL, EOMI, no pharyngeal exudate, mucous membranes moist Chest: Clear to auscultation, on room air, no adventitious breath sounds Cardiac: Regular rate and rhythm, no murmur, no JVD, normal peripheral pulses, good capillary refill Abdominal: NABS x 4 quadrants, soft, nondistended, nontender to palpation, no rebound or guarding Extremities: Normal inspection, no peripheral edema or erythema, calfs nontender to palpation Psych: Anxious mood and affect Neuro: AAO x 3, strength intact bilaterally and rated 5/5, no motor deficits, speech is clear, no peripheral sensory deficits Results & Data Results & Data Vital Signs (Past 12 Hours) Vital Signs Temp Pulse Resp BP 08/16/25 06:32 114 H 109/78 08/16/25 06:31 36.8 C 101 H 16 116/78
[2025-08-16] MEDS: LORazepam 0.5 MG TAB PO PRN (14:56)
[2025-08-16] MEDS: PROPRANOLOL HCL 10 MG TAB PO PRN (19:01)
--- NOTE | 2025-08-17 09:13 | Psychiatric Progress Note ---
Date of Service August 17, 2025 Impression / Recommendations Impression PRASHANT SCHMIDT is a 35-year-old F who currently lives in at home with her 17 y/o son, has a history of depression and anxiety, and was admitted on 08/14/25 23:45 on a 201 voluntary commitment for SI without plan or intent, in the setting of daily panic attacks over the past two weeks, and medication nonadherence over the past 2 years. Diagnostically consistent with severe panic disorder and MDDR, severe. BPD also a possibility. Discussed at length the pharmacologic options for treatment, including primarily returning to Zoloft (if pt is willing to tolerate possible weight gain, trying a different SSRI such as Prozac (which is typically weight neutral), or switching to SNRI class (like Cymbalta). Reviewed R/B of all options. Pt stated she wanted to consider and did not want to decide until the end of the day. I met with her a second time, and she wanted to try Prozac. A: continue Prozac and give more time. Also encouraged her to utilize the PRN that is available to her and discussed the risks and benefits of it again. Ativan dose was increased to 1 mg as needed yesterday. I also encouraged her to write a list of possible coping skills to try- including to movement based activities, and to cognitively stimulating activities for distraction. She continues to seek out a high level of one-to-one support from staff. Sleep also remains poor, but she continues to decline sleep medication, Due to concerns that she will be oversedated. I do believe that her increased heart rate and blood pressure are related to high anxiety states. However, I will order cortisol level and urine metanephrine to make sure were not missing anything significant. (1) Panic disorder: (2) Major depressive disorder, recurrent severe without psychotic features: (3) Superficial thrombophlebitis of left leg: Plan 08/17/25: Utilize CBT, and encouraged patient to identify coping skills to try out. Continuing to encourage as needed use. Giving more time on Prozac. Also ordered labs to rule out other causes of hypertension and tachycardia, which are occurring intermittently. 08/16/25: continue current treatment and medications, and give more time. 08/15/25: The patient was admitted to the [facility] ([facility] mental [facility] unit) on q15 min checks (behavioral with suicide precautions) for safety. The patient will participate in group, recreational, and milieu therapies and will be offered additional individual and family sessions as clinically appropriate. Meds started: Prozac 10mg in AM propranolol 10mg TID PRN anxiety (hold if SBP<100) Home meds continued: none Hospital medicine consult - they ordered CT chest to r/o PE. Overall, I spent a total of 40 minutes on this patients care, including direct evaluation of the patient, counseling the patient, ordering medication, coordination with nursing, interdisciplinary team meeting, and documentation. Inventory Assets Strengths: help seeking Needs: outpatient providers, caregiver support Suicide Risk Level Suicide Risk Level: High-Moderate (q15 min suicide checks) Suicide Risk Level Comments: High-moderate given high level of distress, acute and chronic SI, with hx of multiple suicide attempts and hospitalizations in the past. Does deny recent intent or plan. Does report she feels safe on the unit and can reach out to stay if SI worsens or if pt is unable to maintain safety. Risk Factors Assessment Male: No : Yes Do You Have Access To A Gun?: No Health Problems: Yes Mental Health Diagnoses: Yes Substance Use Disorders: No Previous Attempt: Yes Family History of Suicide: No Previous Psychiatric Hospitalization: Yes Hopelessness: Yes Protective Factors Assessment : No Responsible for Young Children: Yes (son is a minor, but now in [employer] custody) Employed: Yes Supportive Family: No Interval History Identifying Information PRASHANT SCHMIDT is a 35-year-old F who currently lives in at home with her 17 y/o son, has a history of depression and anxiety, and was admitted on 08/14/25 23:45 on a 201 voluntary commitment for SI without plan or intent, in the setting of daily panic attacks over the past two weeks, and medication nonadherence over the past 2 years. Diagnostically consistent with severe panic disorder and MDDR, severe. BPD also a possibility. Chief Complaint "[]". Review of Systems Sleep Information Total Hours of Sleep: 4.75 Meal Information Percent Meal Consumed - Breakfast: 75 Percent Meal Consumed - Lunch: 50 Percent Meal Consumed - Dinner: 5 Nutrition Comment: Pt refused dinner and requested a bag of pretzels instead. Subjective Subjective Patient was seen & assessed and interval progress reviewed with [treatment team] [nursing and social work] per report: attends and participating in programing reported panic attack yesterday afternoon mood 11/03 met with CM and had intake also met with clergy yesterday also had extensive 1:1 time with nursing, as pt reported she was having a "medical emergency". Vitals at that time did show tachycardia and mild hypertension, but she refused propranolol. Ativan was given. I met with the patient privately in her room. She was shaking/bouncing both legs while speaking. She says she is feeling very anxious. "I am trying to think positive." However, her mind tends to fill with thoughts about negative adverse effects from medication. At the same time she states "I want things to work quicker. I am just tired of feeling like this." Struggled to identify any coping skills other than medication. She said that the only thing that helps is sitting on the couch, curled in a ball, and staring at the wall. Brainstormed together some other options, and identified negative automatic thoughts. Typically the negative automatic thought is "it will not help", which occurs before she tries it. Another thought is "I am too anxious to do that", and we challenged this by saying she would be either anxious doing it or not doing it, and if doing the coping skill may help, it is worth giving a try. Again encouraged her to utilize propranolol as needed, and reviewed the risks and benefits of it again today. Physical Exam Psychiatric Orientation: alert and oriented x 3 Apperance: appropriately dressed, appropriately groomed and appeared stated age Eye Contact: good eye contact Motor Behavior: steady gait and station, no abnormal motor movements and + psychomotor agitation Speech: normal rate/rhythm/volume of speech Affect: + depressed affect, + anxious affect, + constricted affect and mood congruent with affect Mood: + depressed mood and + anxious mood Thought Process: goal directed thought process, linear/logical thought process, clear/coherent thought process and thought association intact Thought Content: + cognitive distortions and reality based without delusions Suicidal Thoughts: denies suicidal plan and denies suicidal intent Reports passive suicidal thoughts today Homicidal Thoughts: denies homicidal thoughts, denies homicidal plan and denies homicidal intent Hallucinations: no auditory hallucinations and no visual hallucinations Cognition: recent memory grossly intact, remote memory grossly intact, attention grossly intact and language grossly intact Estimated Intelligence: average estimated intelligence and consistent with education level Insight: + fair insight Judgment: + fair judgement Vital Signs (Past 24 Hours) Last Vital Signs Temp 36.6 C 08/17/25 06:30 Pulse 99 H 08/17/25 06:30 Resp 16 08/17/25 06:30 BP 122/87 08/17/25 06:30 Pulse Ox 99 08/15/25 00:10 O2 Del Method Room Air 08/15/25 00:10 Results & Data ([facility]) Current Inpatient Medications Current Inpatient Medications: Current Inpatient Medications Acetaminophen (Acetaminophen 325 Mg Tab) 650 mg PO Q4H PRN PRN Reason: Headache or Minor Fever Stop: 09/13/25 23:49 Al Hydrox/Mg Hydrox/Simethicone (Aluminum/Magnesium Susp 30 Ml Udc) 30 ml PO Q4H PRN PRN Reason: GI Upset Stop: 09/13/25 23:49 Bismuth Subsalicylate (Bismuth Subsalicylate 262 Mg Chew) 2 tab PO Q30M PRN PRN Reason: Loose Stool/Diarrhea Stop: 09/13/25 23:49 Fluoxetine HCl (Fluoxetine Hcl 10 Mg Cap) 10 mg PO QAM EDIE Stop: 09/15/25 08:59 Last Admin: 08/17/25 09:01 Dose: 10 mg Lorazepam (Lorazepam 1 Mg Tab) 1 mg PO BID PRN PRN Reason: Anxiety Stop: 09/15/25 19:39 Magnesium Hydroxide (Magnesium Hydroxide Susp 30 Ml Udc) 30 ml PO DAILY PRN PRN Reason: Constipation Stop: 09/13/25 23:49 Propranolol HCl (Propranolol Hcl 10 Mg Tab) 10 mg PO TID PRN PRN Reason: Anxiety Stop: 09/14/25 13:59 Sodium Chloride (Sodium Chloride 0.65% Na Soln 45 Ml ([place])) 1 - 2 sprays NA PRN PRN PRN Reason: Nasal Dryness/Congestion Stop: 09/13/25 23:49 Mental Health & Subst Abuse Tx Therapist Name of Therapist: Maggi (Intake) - In person Therapist's Date of Therapist Appointment: 09/18/25 Time of Therapist Appointment: 3:30PM arrival, 4PM appt Therapy Appointment Comment: [address], [address], [place] [address] Solvent Station Attendant Name of Solvent Station Attendant: Aislinn Hawkins Phone Number for Solvent Station Attendant: [phone] Post Discharge Appointments Primary Care Physician Name Of Family Doctor/PCP: Dr. Pandey ([facility]) [address], [place] [address] Primary Care Date of Future Appointment with PCP: 08/23/25 Time of Appointment with PCP: 1:25PM check in, 1:40PM appt Provider Appointment Comment: Appt scheduled for med managment and PCP notified to refer for mammogram Contact Information Discharge Discharge Address: [address] [place] [address] [address] [id number]
--- NOTE | 2025-08-18 10:00 | Psychiatric Progress Note ---
Date of Service August 18, 2025 Impression / Recommendations Impression PRASHANT SCHMIDT is a 35-year-old F who currently lives in at home with her 17 y/o son, has a history of depression and anxiety, and was admitted on 08/14/25 23:45 on a 201 voluntary commitment for SI without plan or intent, in the setting of daily panic attacks over the past two weeks, and medication nonadherence over the past 2 years. Diagnostically consistent with severe panic disorder and MDDR, severe. BPD also a possibility. Discussed at length the pharmacologic options for treatment, including primarily returning to Zoloft (if pt is willing to tolerate possible weight gain, trying a different SSRI such as Prozac (which is typically weight neutral), or switching to SNRI class (like Cymbalta). Reviewed R/B of all options. Pt stated she wanted to consider and did not want to decide until the end of the day. I met with her a second time, and she wanted to try Prozac. A: Severe panic disorder which has set off major depression. Unfortunately her anxiety is leading to need for frequent reassurance and fears about utilizing medications to help her get relief. Provided significant psychoeducation about anxiety, stress response, panic attacks and safety of medications. She consents to titration of fluoxetine and encouraged ongoing use of propranolol and ativan prn. She declined ativan but will continue to encourage use. labwork reviewed and cortisol normal, pheochromocytoma workup via urine testing pending. MNPR due to intense anxiety and psychic distress Overall, I spent a total of 50 minutes on this case including meeting with the patient, reviewing the chart, nursing report, multidisciplinary team meeting, orders, and documentation. (1) Panic disorder: (2) Major depressive disorder, recurrent severe without psychotic features: (3) Superficial thrombophlebitis of left leg: Plan 08/18/2025: -Increase fluoxetine to 20mg daily -Ativan 1mg BID po prn for panic attacks 08/17/25: Utilize CBT, and encouraged patient to identify coping skills to try out. Continuing to encourage as needed use. Giving more time on Prozac. Also ordered labs to rule out other causes of hypertension and tachycardia, which are occurring intermittently. 08/16/25: continue current treatment and medications, and give more time. 08/15/25: The patient was admitted to the [facility] (locked inpatient mental health unit) on q15 min checks (behavioral with suicide precautions) for safety. The patient will participate in group, recreational, and milieu therapies and will be offered additional individual and family sessions as clinically appropriate. Meds started: Prozac 10mg in AM propranolol 10mg TID PRN anxiety (hold if SBP<100) Home meds continued: none Hospital medicine consult - they ordered CT chest to r/o PE. Inventory Assets Strengths: help seeking Needs: outpatient providers, caregiver support Suicide Risk Level Suicide Risk Level: High-Moderate (q15 min suicide checks) (high level of distress, acute and chronic SI, now with intense panic attacks with hx of multiple suicide attempts and hospitalizations in the past. Does deny recent intent or plan. Does report she feels safe on the unit and can reach out to staff if SI worsens or if she feels unsafe) Suicide Risk Level Comments: Risk Factors Assessment Male: No : Yes Do You Have Access To A Gun?: No Health Problems: Yes Mental Health Diagnoses: Yes Substance Use Disorders: No Previous Attempt: Yes Family History of Suicide: No Previous Psychiatric Hospitalization: Yes Hopelessness: Yes Protective Factors Assessment : No Responsible for Young Children: Yes (son is a minor, but now in [employer] custody) Employed: Yes Supportive Family: No Interval History Identifying Information PRASHANT SCHMIDT is a 35-year-old F who currently lives in at home with her 17 y/o son, has a history of depression and anxiety, and was admitted on 08/14/25 23:45 on a 201 voluntary commitment for SI without plan or intent, in the setting of daily panic attacks over the past two weeks, and medication nonadherence over the past 2 years. Diagnostically consistent with severe panic disorder and MDDR, severe. BPD also a possibility. Chief Complaint "I'm scared to ". Review of Systems Sleep Information Total Hours of Sleep: 2 Meal Information Percent Meal Consumed - Breakfast: 25 Percent Meal Consumed - Lunch: 25 Percent Meal Consumed - Dinner: 15 Nutrition Comment: Pt refused dinner and requested a bag of pretzels instead. Subjective Subjective Patient was seen & assessed and interval progress reviewed with nursing. Requests frequent 1-on-1s. Noticeable help seeking/help rejecting. Swore at counselor last evening after limits were set about picking up her trash in the dayroom. Slept very poorly, requests vital signs be taken overnight due to anxiety about health impacts. Gets very nervous with elevated heart rate. Declining ativan and propranolol. Won't accept medications that are offered. Today asked nurses for frequent reassurance via taking her vital signs that she wasn't dying. Ultimately agreed to take one dose of propranolol. After this asked me to promise that she wouldn't from the propranolol stating she feels "scared ot ". Discussed how exhausted she feels from the constant panic attacks over recent weeks and that she feels so uncomfortable she feels like she'd like to "pass out and " or worries she'd impulsively kill herself if outside of the hospital due to acute distress however she's also terrified of dying. She is able to reflect on responding "really well" to zoloft and celexa in the past and wonders if this means she's more likely to respond well to Prozac. Physical Exam Psychiatric Orientation: alert and oriented x 3 Apperance: appropriately dressed, appropriately groomed and appeared stated age Eye Contact: good eye contact Motor Behavior: steady gait and station and no abnormal motor movements Speech: normal rate/rhythm/volume of speech Affect: + depressed affect, + anxious affect, + tearful affect and mood congruent with affect Mood: + depressed mood and + anxious mood Thought Process: + perseveration Thought Content: + preoccupation and + cognitive distortions Suicidal Thoughts: denies suicidal plan and denies suicidal intent; + reports suicidal thoughts Homicidal Thoughts: denies homicidal thoughts, denies homicidal plan and denies homicidal intent Hallucinations: no auditory hallucinations and no visual hallucinations Cognition: recent memory grossly intact, remote memory grossly intact, attention grossly intact and language grossly intact Estimated Intelligence: average estimated intelligence and consistent with education level Insight: + limited insight Judgment: + limited judgement Vital Signs (Past 24 Hours) Last Vital Signs Temp 36.6 C 08/17/25 06:30 Pulse 95 H 08/18/25 00:02 Resp 16 08/18/25 00:02 BP 128/74 08/18/25 00:02 Pulse Ox 98 08/18/25 00:02 O2 Del Method Room Air 08/18/25 00:02 Results & Data ([facility]) Laboratory Results Laboratory Results - last 24 hr 08/17/25 08/17/25 15:47 16:57 Random Cortisol 11.59 Ur Rillito Metanephrines Pending U Normetanephrine Pending U Total Metanephrines Pending Urine Creatinine Pending Current Inpatient Medications Current Inpatient Medications: Current Inpatient Medications Acetaminophen (Acetaminophen 325 Mg Tab) 650 mg PO Q4H PRN PRN Reason: Headache or Minor Fever Stop: 09/13/25 23:49 Al Hydrox/Mg Hydrox/Simethicone (Aluminum/Magnesium Susp 30 Ml Udc) 30 ml PO Q4H PRN PRN Reason: GI Upset Stop: 09/13/25 23:49 Bismuth Subsalicylate (Bismuth Subsalicylate 262 Mg Chew) 2 tab PO Q30M PRN PRN Reason: Loose Stool/Diarrhea Stop: 09/13/25 23:49 Fluoxetine HCl (Fluoxetine Hcl 10 Mg Cap) 10 mg PO QAM EDIE Stop: 09/15/25 08:59 Last Admin: 08/18/25 09:14 Dose: 10 mg Lorazepam (Lorazepam 1 Mg Tab) 1 mg PO BID PRN PRN Reason: Anxiety Stop: 09/15/25 19:39 Magnesium Hydroxide (Magnesium Hydroxide Susp 30 Ml Udc) 30 ml PO DAILY PRN PRN Reason: Constipation Stop: 09/13/25 23:49 Propranolol HCl (Propranolol Hcl 10 Mg Tab) 10 mg PO TID PRN PRN Reason: Anxiety Stop: 09/14/25 13:59 Sodium Chloride (Sodium Chloride 0.65% Na Soln 45 Ml ([place])) 1 - 2 sprays NA PRN PRN PRN Reason: Nasal Dryness/Congestion Stop: 09/13/25 23:49 Mental Health & Subst Abuse Tx Therapist Name of Therapist: Maggi (Intake) - In person Therapist's Date of Therapist Appointment: 09/18/25 Time of Therapist Appointment: 3:30PM arrival, 4PM appt Therapy Appointment Comment: [address], [address], [facility] [address] Geological Specialist Name of Geological Specialist: Aislinn Hawkins Phone Number for Geological Specialist: [phone] Post Discharge Appointments Primary Care Physician Name Of Family Doctor/PCP: Dr. Pandey ([facility] [place]) [address] [place] [address] [place] [address] Primary Care Date of Future Appointment with PCP: 08/23/25 Time of Appointment with PCP: 1:25PM check in, 1:40PM appt Provider Appointment Comment: Appt scheduled for med managment and PCP notified to refer for mammogram Contact Information Discharge Discharge Address: [address] [place] [address]
--- NOTE | 2025-08-19 09:34 | Psychiatric Progress Note ---
Date of Service August 19, 2025 Impression / Recommendations Impression PRASHANT SCHMIDT is a 35-year-old F who currently lives in at home with her 17 y/o son, has a history of depression and anxiety, and was admitted on 08/14/25 23:45 on a 201 voluntary commitment for SI without plan or intent, in the setting of daily panic attacks over the past two weeks, and medication nonadherence over the past 2 years. Diagnostically consistent with severe panic disorder and MDDR, severe. BPD also a possibility. Discussed at length the pharmacologic options for treatment, including primarily returning to Zoloft (if pt is willing to tolerate possible weight gain, trying a different SSRI such as Prozac (which is typically weight neutral), or switching to SNRI class (like Cymbalta). Reviewed R/B of all options. Pt stated she wanted to consider and did not want to decide until the end of the day. I met with her a second time, and she wanted to try Prozac. A: Severe panic disorder which has set off major depression. She remains very hesitant to use any medication and declined first dose of scheduled propranolol despite significant efforts to provide psychoeducation about benefits and safety of this. Ongoing very poor sleep, she consented to starting mirtazapine to help with depression, anxiety, insomnia. Reviewed side effects including but not limited to: sedation, weight gain. Continues to test limits at times, shows evidence of all or nothing thinking with help seeking/help rejecting behaviors which may represent some cluster B traits/borderline personality disorder as co- occuring and further complicating her treatment. MNPR due to intense anxiety and psychic distress, poor boundaries at times Overall, I spent a total of 55 minutes on this case including meeting with the patient, reviewing the chart, nursing report, multidisciplinary team meeting, orders, and documentation. (1) Panic disorder: (2) Major depressive disorder, recurrent severe without psychotic features: (3) Superficial thrombophlebitis of left leg: Plan 08/19/2025: -Start mirtazapine 15mg HS -Start propranolol 10mg TID scheduled 08/18/2025: -Increase fluoxetine to 20mg daily -Ativan 1mg BID po prn for panic attacks 08/17/25: Utilize CBT, and encouraged patient to identify coping skills to try out. Continuing to encourage as needed use. Giving more time on Prozac. Also ordered labs to rule out other causes of hypertension and tachycardia, which are occurring intermittently. 08/16/25: continue current treatment and medications, and give more time. 08/15/25: The patient was admitted to the [facility] ([facility] mental health unit) on q15 min checks (behavioral with suicide precautions) for safety. The patient will participate in group, recreational, and milieu therapies and will be offered additional individual and family sessions as clinically appropriate. Meds started: Prozac 10mg in AM propranolol 10mg TID PRN anxiety (hold if SBP<100) Home meds continued: none Hospital medicine consult - they ordered CT chest to r/o PE. Inventory Assets Strengths: help seeking Needs: outpatient providers, caregiver support Suicide Risk Level Suicide Risk Level: High-Moderate (q15 min suicide checks) (high level of distress, acute and chronic SI, now with intense panic attacks with hx of multiple suicide attempts and hospitalizations in the past. Does deny recent intent or plan. Does report she feels safe on the unit and can reach out to staff if SI worsens or if she feels unsafe) Suicide Risk Level Comments: Risk Factors Assessment Male: No : Yes Do You Have Access To A Gun?: No Health Problems: Yes Mental Health Diagnoses: Yes Substance Use Disorders: No Previous Attempt: Yes Family History of Suicide: No Previous Psychiatric Hospitalization: Yes Hopelessness: Yes Protective Factors Assessment : No Responsible for Young Children: Yes (son is a minor, but now in C[employer] custody) Employed: Yes Supportive Family: No Interval History Identifying Information PRASHANT SCHMIDT is a 35-year-old F who currently lives in at home with her 17 y/o son, has a history of depression and anxiety, and was admitted on 08/14/25 23:45 on a 201 voluntary commitment for SI without plan or intent, in the setting of daily panic attacks over the past two weeks, and medication nonadherence over the past 2 years. Diagnostically consistent with severe panic disorder and MDDR, severe. BPD also a possibility. Chief Complaint "Worried". Review of Systems Sleep Information Total Hours of Sleep: 1.75 Meal Information Percent Meal Consumed - Breakfast: 10 Percent Meal Consumed - Lunch: 15 Percent Meal Consumed - Dinner: 10 Nutrition Comment: Subjective Subjective Patient was seen & assessed and interval progress reviewed with nursing and social work. Continues to ruminate on fears of dying or having medical issue and needing frequent reassurance. She only slept 1.75 hours, frequent requests to have her vital signs checked. She declined any prns after one dose of propranolo l yesterday which did bring down her HR. Rated her mood as "1". She spoke to her father on the phone for about an hour yesterday. Tearful at times. Today reports ongoing intense anxiety and panic symptoms. She doesn't want to take any benzodiazepines due to concerns of becoming dependent on these with family and personal history of substance use in the past. She found the propranolol helpful yesterday but declined further doses, she remains scared that medications will harm her. Worries and seeks reassurance that her heart is not shutting down. Asks for a hug twice, reviewed professional boundaries and that personal contact with providers and staff is not appropriate but that we are here to offer support in other ways. Reviewed other comfort items including weighted blanket. She noted that she feels unloved and that she seeks out hugs because "id on't have a mom or a dad". Reflected on her father inviting her for Thanksgiving, she noted that he can be distant and not supportive. Emphasized the importance of treatment and discussed recommendation to start mirtazapine and scheduled propranolol, which she can refuse, due to her hesistancy to ask for any prn medication. She agreed to this. Physical Exam Psychiatric Orientation: alert and oriented x 3 Apperance: appropriately dressed, appropriately groomed and appeared stated age Eye Contact: good eye contact Motor Behavior: steady gait and station and no abnormal motor movements Speech: normal rate/rhythm/volume of speech Affect: + depressed affect, + anxious affect, + tearful affect and mood congruent with affect Mood: + depressed mood and + anxious mood Thought Process: + perseveration Thought Content: + preoccupation and + cognitive distortions Suicidal Thoughts: denies suicidal plan and denies suicidal intent; + reports suicidal thoughts Homicidal Thoughts: denies homicidal thoughts, denies homicidal plan and denies homicidal intent Hallucinations: no auditory hallucinations and no visual hallucinations Cognition: recent memory grossly intact, remote memory grossly intact, attention grossly intact and language grossly intact Estimated Intelligence: average estimated intelligence and consistent with education level Insight: + limited insight Judgment: + limited judgement Vital Signs (Past 24 Hours) Last Vital Signs Temp 36.7 C 08/19/25 06:31 Pulse 99 H 08/19/25 06:31 Resp 20 08/19/25 06:31 BP 126/84 08/19/25 06:34 Pulse Ox 100 08/19/25 06:31 O2 Del Method Room Air 08/19/25 06:31 Results & Data ([facility]) Current Inpatient Medications Current Inpatient Medications: Current Inpatient Medications Acetaminophen (Acetaminophen 325 Mg Tab) 650 mg PO Q4H PRN PRN Reason: Headache or Minor Fever Stop: 09/13/25 23:49 Al Hydrox/Mg Hydrox/Simethicone (Aluminum/Magnesium Susp 30 Ml Udc) 30 ml PO Q4H PRN PRN Reason: GI Upset Stop: 09/13/25 23:49 Bismuth Subsalicylate (Bismuth Subsalicylate 262 Mg Chew) 2 tab PO Q30M PRN PRN Reason: Loose Stool/Diarrhea Stop: 09/13/25 23:49 Fluoxetine HCl (Fluoxetine Hcl 20 Mg Cap) 20 mg PO QAM EDIE Stop: 09/18/25 08:59 Last Admin: 08/19/25 09:10 Dose: 20 mg Lorazepam (Lorazepam 1 Mg Tab) 1 mg PO BID PRN PRN Reason: Anxiety Stop: 09/15/25 19:39 Magnesium Hydroxide (Magnesium Hydroxide Susp 30 Ml Udc) 30 ml PO DAILY PRN PRN Reason: Constipation Stop: 09/13/25 23:49 Propranolol HCl (Propranolol Hcl 10 Mg Tab) 10 mg PO TID PRN PRN Reason: Anxiety Stop: 09/14/25 13:59 Last Admin: 08/18/25 13:38 Dose: 10 mg Sodium Chloride (Sodium Chloride 0.65% Na Soln 45 Ml ([place])) 1 - 2 sprays NA PRN PRN PRN Reason: Nasal Dryness/Congestion Stop: 09/13/25 23:49 Mental Health & Subst Abuse Tx Therapist Name of Therapist: Maggi (Intake) - In person Therapist's Date of Therapist Appointment: 09/18/25 Time of Therapist Appointment: 3:30PM arrival, 4PM appt Therapy Appointment Comment: [address], [address], [place] [address] Kitchen Supervisor Name of Kitchen Supervisor: Aislinn Hawkins Phone Number for Kitchen Supervisor: [phone] Post Discharge Appointments Primary Care Physician Name Of Family Doctor/PCP: Dr. Pandey ([facility]) [address], [place] [address] Primary Care Date of Future Appointment with PCP: 08/23/25 Time of Appointment with PCP: 1:25PM check in, 1:40PM appt Provider Appointment Comment: Appt scheduled for med managment and PCP notified to refer for mammogram Contact Information Discharge Discharge Address: [address] [place] [address] [address] [place] [address]
[2025-08-19] MEDS: PROPRANOLOL HCL 10 MG TAB PO SCH (12:14)
[2025-08-19] MEDS: LORazepam 1 MG TAB PO PRN (18:22)
[2025-08-19] MEDS: MIRTAZAPINE TAB 15 MG TAB PO SCH (23:07)
--- NOTE | 2025-08-20 09:08 | Psychiatric Progress Note ---
Date of Service August 20, 2025 Impression / Recommendations Impression PRASHANT SCHMIDT is a 35-year-old F who currently lives in at home with her 17 y/o son, has a history of depression and anxiety, and was admitted on 08/14/25 23:45 on a 201 voluntary commitment for SI without plan or intent, in the setting of daily panic attacks over the past two weeks, and medication nonadherence over the past 2 years. Diagnostically consistent with severe panic disorder and MDDR, severe. BPD also a possibility. Discussed at length the pharmacologic options for treatment, including primarily returning to Zoloft (if pt is willing to tolerate possible weight gain, trying a different SSRI such as Prozac (which is typically weight neutral), or switching to SNRI class (like Cymbalta). Reviewed R/B of all options. Pt stated she wanted to consider and did not want to decide until the end of the day. I met with her a second time, and she wanted to try Prozac. A: Severe panic disorder which has set off major depression. She remains very hesitant to use any medication and declined mirtazapine last night but slept a little bit more with ativan prn (though still minimal). Encouragingly she is taking fluoxetine and attending groups. Encouraged use of prescribed medications and safety of these alone and in combination. MNPR due to intense anxiety and psychic distress, poor boundaries at times Overall, I spent a total of 45 minutes on this case including meeting with the patient, reviewing the chart, nursing report, multidisciplinary team meeting, orders, and documentation. (1) Panic disorder: (2) Major depressive disorder, recurrent severe without psychotic features: (3) Superficial thrombophlebitis of left leg: Plan 08/20/2025: -Continue current medications and tx plan 08/19/2025: -Start mirtazapine 15mg HS -Start propranolol 10mg TID scheduled 08/18/2025: -Increase fluoxetine to 20mg daily -Ativan 1mg BID po prn for panic attacks 08/17/25: Utilize CBT, and encouraged patient to identify coping skills to try out. Continuing to encourage as needed use. Giving more time on Prozac. Also ordered labs to rule out other causes of hypertension and tachycardia, which are occurring intermittently. 08/16/25: continue current treatment and medications, and give more time. 08/15/25: The patient was admitted to the [facility] ([facility] inpatient mental health unit) on q15 min checks (behavioral with suicide precautions) for safety. The patient will participate in group, recreational, and milieu therapies and will be offered additional individual and family sessions as clinically appropriate. Meds started: Prozac 10mg in AM propranolol 10mg TID PRN anxiety (hold if SBP<100) Home meds continued: none Hospital medicine consult - they ordered CT chest to r/o PE. Inventory Assets Strengths: help seeking Needs: outpatient providers, caregiver support Suicide Risk Level Suicide Risk Level: High-Moderate (q15 min suicide checks) (high level of distress, acute and chronic SI, now with intense panic attacks with hx of multiple suicide attempts and hospitalizations in the past. Does deny recent intent or plan. Does report she feels safe on the unit and can reach out to staff if SI worsens or if she feels unsafe) Suicide Risk Level Comments: Risk Factors Assessment Male: No : Yes Do You Have Access To A Gun?: No Health Problems: Yes Mental Health Diagnoses: Yes Substance Use Disorders: No Previous Attempt: Yes Family History of Suicide: No Previous Psychiatric Hospitalization: Yes Hopelessness: Yes Protective Factors Assessment : No Responsible for Young Children: Yes (son is a minor, but now in [employer] custody) Employed: Yes Supportive Family: No Interval History Identifying Information PRASHANT SCHMIDT is a 35-year-old F who currently lives in at home with her 17 y/o son, has a history of depression and anxiety, and was admitted on 08/14/25 23:45 on a 201 voluntary commitment for SI without plan or intent, in the setting of daily panic attacks over the past two weeks, and medication nonadherence over the past 2 years. Diagnostically consistent with severe panic disorder and MDDR, severe. BPD also a possibility. Chief Complaint "My brain keeps telling me I'm dying". Review of Systems Sleep Information Total Hours of Sleep: 4.5 Meal Information Percent Meal Consumed - Breakfast: 10 Percent Meal Consumed - Lunch: 75 Percent Meal Consumed - Dinner: 0 Subjective Subjective Patient was seen & assessed and interval progress reviewed with treatment team. She took prn ativan yesterday evening and she felt this wasn't helpful for her HR and BP but then vital sign checks showed it had lessened. Slept a little more. This morning woke concerned her neck was pulsating. Showered last night for the first time. Refused mirtazapine last evening. Today remains very anxious. Worries it could be due to her fluoxetine but she also recognizes that she's responded well to SSRIs in the past. Reflects on feeling constantly like she's dying and feels like "I'm right on the edge of losing my mind". She had a panic attack that woke her from sleep last night and she woke short of breath which she was very distressed by. She continues to decline propranolol today. Feels the ativan helps but she worries about becoming dependent on it. Discussed importance of using medications to help with symptoms and strongly encouraged her to use mirtazapine tonight to help with sleep. Discussed benefits and reviewed strong safety profile. Physical Exam Psychiatric Orientation: alert and oriented x 3 Apperance: appropriately dressed, appropriately groomed and appeared stated age Eye Contact: good eye contact Motor Behavior: steady gait and station and no abnormal motor movements Speech: normal rate/rhythm/volume of speech Affect: + depressed affect, + anxious affect, + tearful affect and mood congruent with affect Mood: + depressed mood and + anxious mood Thought Process: + perseveration Thought Content: + preoccupation and + cognitive distortions Suicidal Thoughts: denies suicidal plan and denies suicidal intent; + reports suicidal thoughts Homicidal Thoughts: denies homicidal thoughts, denies homicidal plan and denies homicidal intent Hallucinations: no auditory hallucinations and no visual hallucinations Cognition: recent memory grossly intact, remote memory grossly intact, attention grossly intact and language grossly intact Estimated Intelligence: average estimated intelligence and consistent with education level Insight: + limited insight Judgment: + limited judgement Vital Signs (Past 24 Hours) Last Vital Signs Temp 36.7 C 08/20/25 06:39 Pulse 98 H 08/20/25 06:39 Resp 16 08/20/25 06:39 BP 113/77 08/20/25 06:39 Pulse Ox 99 08/20/25 06:39 O2 Del Method Room Air 08/20/25 06:39 Results & Data ([facility]) Current Inpatient Medications Current Inpatient Medications: Current Inpatient Medications Acetaminophen (Acetaminophen 325 Mg Tab) 650 mg PO Q4H PRN PRN Reason: Headache or Minor Fever Stop: 09/13/25 23:49 Al Hydrox/Mg Hydrox/Simethicone (Aluminum/Magnesium Susp 30 Ml Udc) 30 ml PO Q4H PRN PRN Reason: GI Upset Stop: 09/13/25 23:49 Bismuth Subsalicylate (Bismuth Subsalicylate 262 Mg Chew) 2 tab PO Q30M PRN PRN Reason: Loose Stool/Diarrhea Stop: 09/13/25 23:49 Fluoxetine HCl (Fluoxetine Hcl 20 Mg Cap) 20 mg PO QAM EDIE Stop: 09/18/25 08:59 Last Admin: 08/19/25 09:10 Dose: 20 mg Lorazepam (Lorazepam 1 Mg Tab) 1 mg PO BID PRN PRN Reason: Anxiety Stop: 09/15/25 19:39 Last Admin: 08/19/25 18:22 Dose: 1 mg Magnesium Hydroxide (Magnesium Hydroxide Susp 30 Ml Udc) 30 ml PO DAILY PRN PRN Reason: Constipation Stop: 09/13/25 23:49 Mirtazapine (Mirtazapine Tab 15 Mg Tab) 15 mg PO HS EDIE Stop: 09/18/25 21:59 Last Admin: 08/19/25 23:07 Dose: Not Given Propranolol HCl (Propranolol Hcl 10 Mg Tab) 10 mg PO TID EDIE Stop: 09/18/25 11:29 Last Admin: 08/19/25 23:07 Dose: Not Given Sodium Chloride (Sodium Chloride 0.65% Na Soln 45 Ml ([place])) 1 - 2 sprays NA PRN PRN PRN Reason: Nasal Dryness/Congestion Stop: 09/13/25 23:49 Mental Health & Subst Abuse Tx Therapist Name of Therapist: Maggi (Intake) - In person Therapist's Date of Therapist Appointment: 09/18/25 Time of Therapist Appointment: 3:30PM arrival, 4PM appt Therapy Appointment Comment: [address], [address], [place] [address] Electric Switch Repairer Name of Electric Switch Repairer: Aislinn Hawkins Phone Number for Electric Switch Repairer: [phone] Post Discharge Appointments Primary Care Physician Name Of Family Doctor/PCP: Dr. Pandey ([facility] [place]) [address] [place] [address] [place] [address] Primary Care Date of Future Appointment with PCP: 08/23/25 Time of Appointment with PCP: 1:25PM check in, 1:40PM appt Provider Appointment Comment: Appt scheduled for med managment and PCP notified to refer for mammogram Contact Information Discharge Discharge Address: [facility] [address] [place] [address] [place] [address]
--- NOTE | 2025-08-21 09:13 | Psychiatric Progress Note ---
Date of Service August 21, 2025 Impression / Recommendations Impression PRASHANT SCHMIDT is a 35-year-old F who currently lives in at home with her 17 y/o son, has a history of depression and anxiety, and was admitted on 08/14/25 23:45 on a 201 voluntary commitment for SI without plan or intent, in the setting of daily panic attacks over the past two weeks, and medication nonadherence over the past 2 years. Diagnostically consistent with severe panic disorder and MDDR, severe. BPD also a possibility. Discussed at length the pharmacologic options for treatment, including primarily returning to Zoloft (if pt is willing to tolerate possible weight gain, trying a different SSRI such as Prozac (which is typically weight neutral), or switching to SNRI class (like Cymbalta). Reviewed R/B of all options. Pt stated she wanted to consider and did not want to decide until the end of the day. I met with her a second time, and she wanted to try Prozac. A: Severe panic disorder which has set off major depression with increased cluster B traits with significant help seeking/ help rejecting and catastrophizing. She remains very hesitant to use any medication and again declined mirtazapine last night. Today she also refused fluoxetine. Ongoing efforts via motivational interviewing, psychoeducation, validation and support as well as CBT skills. MNPR due to intense anxiety and psychic distress, poor boundaries at times Overall, I spent a total of 35 minutes on this case including meeting with the patient, reviewing the chart, nursing report, multidisciplinary team meeting, orders, and documentation. (1) Panic disorder: (2) Major depressive disorder, recurrent severe without psychotic features: (3) Superficial thrombophlebitis of left leg: (4) Non-adherence to medical treatment: Plan 08/21/2025: -Continue current medications and tx plan 08/20/2025: -Continue current medications and tx plan 08/19/2025: -Start mirtazapine 15mg HS -Start propranolol 10mg TID scheduled 08/18/2025: -Increase fluoxetine to 20mg daily -Ativan 1mg BID po prn for panic attacks 08/17/25: Utilize CBT, and encouraged patient to identify coping skills to try out. Continuing to encourage as needed use. Giving more time on Prozac. Also ordered labs to rule out other causes of hypertension and tachycardia, which are occurring intermittently. 08/16/25: continue current treatment and medications, and give more time. 08/15/25: The patient was admitted to the [facility] ([facility] inpatient mental health unit) on q15 min checks (behavioral with suicide precautions) for safety. The patient will participate in group, recreational, and milieu therapies and will be offered additional individual and family sessions as clinically appropriate. Meds started: Prozac 10mg in AM propranolol 10mg TID PRN anxiety (hold if SBP<100) Home meds continued: none Hospital medicine consult - they ordered CT chest to r/o PE. Inventory Assets Strengths: help seeking Needs: outpatient providers, caregiver support Suicide Risk Level Suicide Risk Level: High-Moderate (q15 min suicide checks) (high level of distress, acute and chronic SI, now with intense panic attacks with hx of multiple suicide attempts and hospitalizations in the past. Does deny recent intent or plan. Does report she feels safe on the unit and can reach out to staff if SI worsens or if she feels unsafe) Suicide Risk Level Comments: Risk Factors Assessment Male: No : Yes Do You Have Access To A Gun?: No Health Problems: Yes Mental Health Diagnoses: Yes Substance Use Disorders: No Previous Attempt: Yes Family History of Suicide: No Previous Psychiatric Hospitalization: Yes Hopelessness: Yes Protective Factors Assessment : No Responsible for Young Children: Yes (son is a minor, but now in C[employer] custody) Employed: Yes Supportive Family: No Interval History Identifying Information PRASHANT SCHMIDT is a 35-year-old F who currently lives in at home with her 17 y/o son, has a history of depression and anxiety, and was admitted on 08/14/25 23:45 on a 201 voluntary commitment for SI without plan or intent, in the setting of daily panic attacks over the past two weeks, and medication nonadherence over the past 2 years. Diagnostically consistent with severe panic disorder and MDDR, severe. BPD also a possibility. Chief Complaint "I just want this to go away". Review of Systems Sleep Information Total Hours of Sleep: 5.5 Meal Information Percent Meal Consumed - Breakfast: 10 Percent Meal Consumed - Lunch: 50 Percent Meal Consumed - Dinner: 50 Subjective Subjective Patient was seen & assessed and interval progress reviewed with nursing and social work. She took a prn dose of ativan last evening with significant encouragement. Attending some groups, reports her mood is "worried" and expressed SI but after ativan prn was able to participate in bible study with peers. States she didn't take her mirtazapine last night because she took ativan. This morning she did take propranolol. She refused her fluoxetine. In the afternoon tells me she thinks she feels less anxious without the fluoxetine but is still tearful and states overwhelming anxiety to the point that she wishes she could be given something to point where "I won't wake up". She remains very ambivalent about all of her medications for various reasons but cannot describe any specific concerns. Describes feeling very overwhelmed by her elevated HR this morning. Physical Exam Psychiatric Orientation: alert and oriented x 3 Apperance: appropriately dressed, appropriately groomed and appeared stated age Eye Contact: good eye contact Motor Behavior: steady gait and station and no abnormal motor movements Speech: normal rate/rhythm/volume of speech Affect: + depressed affect, + anxious affect, + tearful affect and mood congruent with affect Mood: + depressed mood and + anxious mood Thought Process: + perseveration Thought Content: + preoccupation and + cognitive distortions Suicidal Thoughts: denies suicidal plan and denies suicidal intent; + reports suicidal thoughts Homicidal Thoughts: denies homicidal thoughts, denies homicidal plan and denies homicidal intent Hallucinations: no auditory hallucinations and no visual hallucinations Cognition: recent memory grossly intact, remote memory grossly intact, attention grossly intact and language grossly intact Estimated Intelligence: average estimated intelligence and consistent with education level Insight: + limited insight Judgment: + poor judgement Vital Signs (Past 24 Hours) Last Vital Signs Temp 37.1 C 08/21/25 06:33 Pulse 92 H 08/21/25 06:47 Resp 16 08/21/25 06:33 BP 117/79 08/21/25 06:34 Pulse Ox 99 08/20/25 22:23 O2 Del Method Room Air 08/20/25 22:23 Results & Data ([facility]) Current Inpatient Medications Current Inpatient Medications: Current Inpatient Medications Acetaminophen (Acetaminophen 325 Mg Tab) 650 mg PO Q4H PRN PRN Reason: Headache or Minor Fever Stop: 09/13/25 23:49 Al Hydrox/Mg Hydrox/Simethicone (Aluminum/Magnesium Susp 30 Ml Udc) 30 ml PO Q4H PRN PRN Reason: GI Upset Stop: 09/13/25 23:49 Bismuth Subsalicylate (Bismuth Subsalicylate 262 Mg Chew) 2 tab PO Q30M PRN PRN Reason: Loose Stool/Diarrhea Stop: 09/13/25 23:49 Fluoxetine HCl (Fluoxetine Hcl 20 Mg Cap) 20 mg PO QAM EDIE Stop: 09/18/25 08:59 Last Admin: 08/20/25 09:35 Dose: 20 mg Lorazepam (Lorazepam 1 Mg Tab) 1 mg PO BID PRN PRN Reason: Anxiety Stop: 09/15/25 19:39 Last Admin: 08/20/25 17:15 Dose: 1 mg Magnesium Hydroxide (Magnesium Hydroxide Susp 30 Ml Udc) 30 ml PO DAILY PRN PRN Reason: Constipation Stop: 09/13/25 23:49 Mirtazapine (Mirtazapine Tab 15 Mg Tab) 15 mg PO HS EDIE Stop: 09/18/25 21:59 Last Admin: 08/21/25 02:48 Dose: Not Given Propranolol HCl (Propranolol Hcl 10 Mg Tab) 10 mg PO TID EDIE Stop: 09/18/25 11:29 Last Admin: 08/21/25 06:06 Dose: 10 mg Sodium Chloride (Sodium Chloride 0.65% Na Soln 45 Ml ([place])) 1 - 2 sprays NA PRN PRN PRN Reason: Nasal Dryness/Congestion Stop: 09/13/25 23:49 Mental Health & Subst Abuse Tx Psychiatrist Name of Psychiatrist: Cristina Self Psychiatrist's Date Of Appointment With Psychiatric Provider: 11/02/25 Time of Appointment with Psychiatrist: 2:50p Psychiatric Appointment Comment: [address] [facility] [address], [place] [address] Therapist Name of Therapist: aMggi (Intake) - In person Therapist's Date of Therapist Appointment: 09/18/25 Time of Therapist Appointment: 3:30PM arrival, 4PM appt Therapy Appointment Comment: [address], [address], [place] [address] Shirt Maker Name of Shirt Maker: Aislinn Hawkins Phone Number for Shirt Maker: [phone] Post Discharge Appointments Primary Care Physician Name Of Family Doctor/PCP: Dr. Pandey ([facility]) [address] [place], [place] [address], [place] [address] Primary Care Date of Future Appointment with PCP: 08/31/25 Time of Appointment with PCP: 1:25PM check in, 1:40PM appt Provider Appointment Comment: Appt scheduled for med managment and PCP notified to refer for mammogram Contact Information Discharge Discharge Address: [address] [place] [address] [address] [place] [id number]
--- NOTE | 2025-08-22 09:15 | Psychiatric Progress Note ---
Date of Service August 22, 2025 Impression / Recommendations Impression PRASHANT SCHMIDT is a 35-year-old F who currently lives in at home with her 17 y/o son, has a history of depression and anxiety, and was admitted on 08/14/25 23:45 on a 201 voluntary commitment for SI without plan or intent, in the setting of daily panic attacks over the past two weeks, and medication nonadherence over the past 2 years. Diagnostically consistent with severe panic disorder and MDDR, severe. BPD also a possibility. Discussed at length the pharmacologic options for treatment, including primarily returning to Zoloft (if pt is willing to tolerate possible weight gain, trying a different SSRI such as Prozac (which is typically weight neutral), or switching to SNRI class (like Cymbalta). Reviewed R/B of all options. Pt stated she wanted to consider and did not want to decide until the end of the day. I met with her a second time, and she wanted to try Prozac. A: Severe panic disorder which has set off major depression with increased cluster B traits (borderline vs histrionic) with significant help seeking/ help rejecting and catastrophizing. Given her ongoing medication refusal discussed CBT strategy of rewards for anxious exposures. She wants to take mirtazapine tonight and then will plan for q1 hour blood pressure/HR checks tomorrow if she takes it as a reward. processed that frequent vital sign checks could worsen her anxiety but she feels if elevated she'll then want to take propranolol. She struggles to recognize this has not helped her feel safe taking it in recent days. She declines option for alternative sleep medication but does want to start sertraline, which she's been on before and had success with, in stead of fluoxetine. Discussed medication treatment options in detail. Discussed risks, benefits and alternatives. Patient would like to start and consented to sertraline for depression/anxiety/panic attacks. Reviewed side effects including but not limited to: GI, MICHAEL, sexual side effects . MNPR due to intense anxiety and psychic distress, poor boundaries at times, periods of dysregulated behaviors Overall, I spent a total of 50 minutes on this case including meeting with the patient, reviewing the chart, nursing report, multidisciplinary team meeting, orders, and documentation. (1) Panic disorder: (2) Major depressive disorder, recurrent severe without psychotic features: (3) Superficial thrombophlebitis of left leg: (4) Non-adherence to medical treatment: Plan 08/22/2025: -Discontinue fluoxetine -Start sertraline 25mg daily tomorrow -Working on exposure ladder/reward menu for anxious components of treatment -12 hours of vital sign checks tomorrow (6am-6pm) if she takes mirtazapine tonight as she self-identifies this as a reward 08/21/2025: -Continue current medications and tx plan 08/20/2025: -Continue current medications and tx plan 08/19/2025: -Start mirtazapine 15mg HS -Start propranolol 10mg TID scheduled 08/18/2025: -Increase fluoxetine to 20mg daily -Ativan 1mg BID po prn for panic attacks 08/17/25: Utilize CBT, and encouraged patient to identify coping skills to try out. Continuing to encourage as needed use. Giving more time on Prozac. Also ordered labs to rule out other causes of hypertension and tachycardia, which are occurring intermittently. 08/16/25: continue current treatment and medications, and give more time. 08/15/25: The patient was admitted to the [facility] ([facility] mental health unit) on q15 min checks (behavioral with suicide precautions) for safety. The patient will participate in group, recreational, and milieu therapies and will be offered additional individual and family sessions as clinically appropriate. Meds started: Prozac 10mg in AM propranolol 10mg TID PRN anxiety (hold if SBP<100) Home meds continued: none Hospital medicine consult - they ordered CT chest to r/o PE. Inventory Assets Strengths: help seeking Needs: outpatient providers, caregiver support Suicide Risk Level Suicide Risk Level: High-Moderate (q15 min suicide checks) (high level of distress, acute and chronic SI, now with intense panic attacks with hx of multiple suicide attempts and hospitalizations in the past. Does deny recent intent or plan. Does report she feels safe on the unit and can reach out to staff if SI worsens or if she feels unsafe) Suicide Risk Level Comments: Risk Factors Assessment Male: No : Yes Do You Have Access To A Gun?: No Health Problems: Yes Mental Health Diagnoses: Yes Substance Use Disorders: No Previous Attempt: Yes Family History of Suicide: No Previous Psychiatric Hospitalization: Yes Hopelessness: Yes Protective Factors Assessment : No Responsible for Young Children: Yes (son is a minor, but now in [employer] custody) Employed: Yes Supportive Family: No Interval History Identifying Information PRASHANT SCHMIDT is a 35-year-old F who currently lives in at home with her 17 y/o son, has a history of depression and anxiety, and was admitted on 08/14/25 23:45 on a 201 voluntary commitment for SI without plan or intent, in the setting of daily panic attacks over the past two weeks, and medication nonadherence over the past 2 years. Diagnostically consistent with severe panic disorder and MDDR, severe. BPD also a possibility. Chief Complaint "I'm petrified, my brain is fighting it really hard". Review of Systems Sleep Information Total Hours of Sleep: 1 Meal Information Percent Meal Consumed - Breakfast: 10 Percent Meal Consumed - Lunch: 100 Percent Meal Consumed - Dinner: 100 Subjective Subjective Patient was seen & assessed and interval progress reviewed with treatment team. She refused medications. Overnight was argumentative with staff. Remains focused on getting repeated vital signs. Slammed her door. Then swore at counselor when he came to get her morning vitals. This morning lying on the floor. Continues to refuse any medications. She requested a 72 hour notice twice but then refused to sign it both time. Refused breakfast. Today she reports concern she hasn't had her BP taken. We processed her refusal this morning and behaviors overnight. She reflects on this and agrees she was dysregulated and mad stating "I know I'm fighting, I'm just so tired". Again discussed and reviewed her understanding of the medications ordered, the reasons for their use, their safety profile and she denies any specific concerns just that her brain keeps convincing her the medication will make everything worse. She cites the ativan prn yesterday as the reason her HR was elevated. Processed that vital sign checks sometimes reassure her but often worsen her anxiety. She continues to desire near constant 1-on-1 and expresses frustrations she cannot have more support. She spent ~1 hour with the hospital ball sorter. She feels the fluoxetine is making things worse and she wants to take sertraline instead because she notes "I know it will make me more anxious for a little while but then it improves and I know what to expect with it". Discussed CBT and exposure/reward concept for anxious exposures/fears. She offers reward of hourly blood pressure checks tomorrow if she takes her mirtazapine tonight given goal of improving sleep. Physical Exam Psychiatric Orientation: alert and oriented x 3 Apperance: appropriately dressed, appropriately groomed and appeared stated age Eye Contact: good eye contact Motor Behavior: steady gait and station and no abnormal motor movements Speech: normal rate/rhythm/volume of speech Affect: + depressed affect, + anxious affect and + tearful affect Mood: + depressed mood, + anxious mood and + irritable mood Thought Process: + perseveration Thought Content: + preoccupation and + cognitive distortions Suicidal Thoughts: denies suicidal plan and denies suicidal intent; + reports suicidal thoughts Homicidal Thoughts: denies homicidal thoughts, denies homicidal plan and denies homicidal intent Hallucinations: no auditory hallucinations and no visual hallucinations Cognition: recent memory grossly intact, remote memory grossly intact, attention grossly intact and language grossly intact Estimated Intelligence: average estimated intelligence and consistent with education level Insight: + limited insight Judgment: + poor judgement Vital Signs (Past 24 Hours) Last Vital Signs Temp 37.1 C 08/21/25 06:33 Pulse 93 H 08/21/25 19:52 Resp 16 08/21/25 06:33 BP 135/97 08/21/25 19:52 Pulse Ox 99 08/20/25 22:23 O2 Del Method Room Air 08/20/25 22:23 Results & Data ([facility]) Current Inpatient Medications Current Inpatient Medications: Current Inpatient Medications Acetaminophen (Acetaminophen 325 Mg Tab) 650 mg PO Q4H PRN PRN Reason: Headache or Minor Fever Stop: 09/13/25 23:49 Al Hydrox/Mg Hydrox/Simethicone (Aluminum/Magnesium Susp 30 Ml Udc) 30 ml PO Q4H PRN PRN Reason: GI Upset Stop: 09/13/25 23:49 Bismuth Subsalicylate (Bismuth Subsalicylate 262 Mg Chew) 2 tab PO Q30M PRN PRN Reason: Loose Stool/Diarrhea Stop: 09/13/25 23:49 Fluoxetine HCl (Fluoxetine Hcl 20 Mg Cap) 20 mg PO QAM EDIE Stop: 09/18/25 08:59 Last Admin: 08/21/25 11:03 Dose: Not Given Lorazepam (Lorazepam 1 Mg Tab) 1 mg PO BID PRN PRN Reason: Anxiety Stop: 09/15/25 19:39 Last Admin: 08/20/25 17:15 Dose: 1 mg Magnesium Hydroxide (Magnesium Hydroxide Susp 30 Ml Udc) 30 ml PO DAILY PRN PRN Reason: Constipation Stop: 09/13/25 23:49 Mirtazapine (Mirtazapine Tab 15 Mg Tab) 15 mg PO HS EDIE Stop: 09/18/25 21:59 Last Admin: 08/21/25 21:49 Dose: Not Given Propranolol HCl (Propranolol Hcl 10 Mg Tab) 10 mg PO TID EDIE Stop: 09/18/25 11:29 Last Admin: 08/21/25 21:49 Dose: Not Given Sodium Chloride (Sodium Chloride 0.65% Na Soln 45 Ml ([place])) 1 - 2 sprays NA PRN PRN PRN Reason: Nasal Dryness/Congestion Stop: 09/13/25 23:49 Mental Health & Subst Abuse Tx Psychiatrist Name of Psychiatrist: Cristina Self Psychiatrist's Date Of Appointment With Psychiatric Provider: 11/02/25 Time of Appointment with Psychiatrist: 2:50p Psychiatric Appointment Comment: [address] [facility] [address], [place] [address] Therapist Name of Therapist: Maggi (Intake) - In person Therapist's Date of Therapist Appointment: 09/18/25 Time of Therapist Appointment: 3:30PM arrival, 4PM appt Therapy Appointment Comment: [address], [address], [facility] [address] Hand Bender Name of Hand Bender: Aislinn Hawkins Phone Number for Hand Bender: [phone] Case Management Appointment Comment: [facility] [phone] Post Discharge Appointments Primary Care Physician Name Of Family Doctor/PCP: Dr. Pandey ([facility]) [address] [facility], [place] [address] Primary Care Date of Future Appointment with PCP: 08/31/25 Time of Appointment with PCP: 1:25PM check in, 1:40PM appt Provider Appointment Comment: Appt scheduled for med managment and PCP notified to refer for mammogram Contact Information Discharge Discharge Address: [address] [place] [address] [facility] [address] [place] [id number]
[2025-08-22] MEDS ORDERED: MIRTAZAPINE TAB 15 MG TAB PO PRN (15:50)
--- NOTE | 2025-08-23 09:37 | Psychiatric Progress Note ---
Date of Service August 23, 2025 Impression / Recommendations Impression PRASHANT SCHMIDT is a 35-year-old F who currently lives in at home with her 17 y/o son, has a history of depression and anxiety, and was admitted on 08/14/25 23:45 on a 201 voluntary commitment for SI without plan or intent, in the setting of daily panic attacks over the past two weeks, and medication nonadherence over the past 2 years. Diagnostically consistent with severe panic disorder and MDDR, severe. BPD also a possibility. Discussed at length the pharmacologic options for treatment, including primarily returning to Zoloft (if pt is willing to tolerate possible weight gain, trying a different SSRI such as Prozac (which is typically weight neutral), or switching to SNRI class (like Cymbalta). Reviewed R/B of all options. Pt stated she wanted to consider and did not want to decide until the end of the day. I met with her a second time, and she wanted to try Prozac. A: Severe panic disorder which has set off major depression with increasing suspicion for borderline personality disorder with increased dysregulation in setting of co-occurring psychiatric symptoms. Today processed component of borderline personality disorder/traits as part of her presentation, provided psychoeducation and she discussed role this plays in negatively impacting her relationships outside of the hospital. We reviewed ways to define our roles and apologized that regretfully we will never be able to meet her expectations of 247 processing and having someone with her 247. Given later discovery of tied up sheet, switching to safety linens and paper scrubs. She continues to feel she can remain safe and no clinical indication at this time, based on my repeated assessments throughout today, for 1-on-1 observer. In fact I this could cause worsening of regressed behavior and would reinforce negative coping skills and reassurance seeking. She is in agreement with plan for safety linens and paper scrubs and feels she can remain safe on the unit. She feels the sheet was a reaction of anger and feeling helpless and desiring increased support. She did take sertraline, continue to encourage, validate and review high safety profile of mirtazapine and importance of sleep for mood/anxiety improvement. Ongoing prominent help seeking/help rejecting behaviors. MNPR due to intense anxiety and psychic distress, poor boundaries at times, periods of dysregulated behaviors Overall, I spent a total of 75 minutes on this case including meeting with the patient, reviewing the chart, nursing report, multidisciplinary team meeting, orders, and documentation. (1) Panic disorder: (2) Major depressive disorder, recurrent severe without psychotic features: (3) Superficial thrombophlebitis of left leg: (4) Non-adherence to medical treatment: Plan 08/23/2025: -Continue current medications -Safety linens, paper scrubs -Can continue with normal diet tray as she turns in her silverware and eats in the dining area in front of staff 08/22/2025: -Discontinue fluoxetine -Start sertraline 25mg daily tomorrow -Working on exposure ladder/reward menu for anxious components of treatment -12 hours of vital sign checks tomorrow (6am-6pm) if she takes mirtazapine tonight as she self-identifies this as a reward 08/21/2025: -Continue current medications and tx plan 08/20/2025: -Continue current medications and tx plan 08/19/2025: -Start mirtazapine 15mg HS -Start propranolol 10mg TID scheduled 08/18/2025: -Increase fluoxetine to 20mg daily -Ativan 1mg BID po prn for panic attacks 08/17/25: Utilize CBT, and encouraged patient to identify coping skills to try out. Continuing to encourage as needed use. Giving more time on Prozac. Also ordered labs to rule out other causes of hypertension and tachycardia, which are occurring intermittently. 08/16/25: continue current treatment and medications, and give more time. 08/15/25: The patient was admitted to the [facility] ([facility] mental health unit) on q15 min checks (behavioral with suicide precautions) for safety. The patient will participate in group, recreational, and milieu therapies and will be offered additional individual and family sessions as clinically appropriate. Meds started: Prozac 10mg in AM propranolol 10mg TID PRN anxiety (hold if SBP<100) Home meds continued: none Hospital medicine consult - they ordered CT chest to r/o PE. Inventory Assets Strengths: help seeking Needs: outpatient providers, caregiver support Suicide Risk Level Suicide Risk Level: High-Moderate (q15 min suicide checks) (high level of distress, acute and chronic SI, now with intense panic attacks with hx of multiple suicide attempts and hospitalizations in the past. Does deny recent intent or plan. Does report she feels safe on the unit and can reach out to staff if SI worsens or if she feels unsafe) Suicide Risk Level Comments: Risk Factors Assessment Male: No : Yes Do You Have Access To A Gun?: No Health Problems: Yes Mental Health Diagnoses: Yes Substance Use Disorders: No Previous Attempt: Yes Family History of Suicide: No Previous Psychiatric Hospitalization: Yes Hopelessness: Yes Protective Factors Assessment : No Responsible for Young Children: Yes (son is a minor, but now in [facility] custody) Employed: Yes Supportive Family: No Interval History Identifying Information PRASHANT SCHMIDT is a 35-year-old F who currently lives in at home with her 17 y/o son, has a history of depression and anxiety, and was admitted on 08/14/25 23:45 on a 201 voluntary commitment for SI without plan or intent, in the setting of daily panic attacks over the past two weeks, and medication nonadherence over the past 2 years. Diagnostically consistent with severe panic disorder and MDDR, severe. BPD also a possibility. Chief Complaint "I hate that I'm here, it's unfair". Review of Systems Sleep Information Total Hours of Sleep: 3.25 Meal Information Percent Meal Consumed - Breakfast: 0 Percent Meal Consumed - Lunch: 75 Percent Meal Consumed - Dinner: 25 Subjective Subjective Patient was seen & assessed and interval progress reviewed with treatment team. Last evening went into a male [facility] room and sat with him on his bed. Then when staff redirected her and asked her to leave his room she referenced being there because she was not being watched closely enough. Today met with Prashant early in the morning to process the events of last evening. She describes feeling that "I hate that I am here it is unfair I have to deal with this" and referencing frustration with not being able to get more assistance from nursing noting "because they do not care". Explored her reaction overnight to staff finding her and appears room in her expression that this was due to them not keeping a close enough eye on her. Asked her what she was hoping to get from that response and processed whether she feels like she at times pushes people away due to some of her behaviors and reactions. She confirms that she has a lot of unmet needs including wanting love and comfort from others but notes "I try to find it wherever I can but then I just push people away". She also reflects that a lot of her concerns about the medication and fears about taking these are "a lot of it is psychosomatic". She reflects on not taking the mirtazapine last night due to ongoing fears about side effects but also remains unable and unwilling to want to consider anything else. She reflects on previous hospitalization needing 2 months to slowly work up to taking various medications with small adjustments at a time. Today is focused on the new sertraline, which she tolerated and found helpful in the past, causing worsening of symptoms. We reflect on possibility that even a placebo/sugar pill at this point might cause anxiety for her because of her intense anxiety and she agrees that this would absolutely occur. She reflects that her fear often turns to anger and wonders why at times she cannot have frequent staff attention noting that other peers "do not need as much help as me". She can also reflect that even when staff or others, including the graphic specialist, spent extensive period of time with her it "does not feel like enough" and is "never enough". She can also reflect that "I need a lot of reassurance". Further exploring this she describes how if she starts to feel "more desperate and angry I want all the comfort and instant help" and when we discussed how there is rarely instant help especially when she is unwilling to take some of the as needed medications that "then I get mad and my emotions get the best to me". She can also reflect that this cycle of how she reacts is much more intense currently because of her anxiety and is not normally as severe. She would like to continue with the current medications and wants to try taking the mirtazapine again tonight. We also spent time reviewing the various roles of both herself as a patient on the unit and all the various staff and what are individual goals are. Apologize that I am unlikely nor can our staff, ever meet her desire for constant one-on-one processing but that we will continue to try to support her as best we can and discussed that I continue to feel that the medications I am recommending are safe and would provide her with benefit but I understand if she continues to feel unable to take them. Later in the day unit counselor found that she had a knotted up bedsheet behind her bed. Counselor and I met with Prashant to discuss this. She confirmed that she made it in a moment on Wednesday night when "I was freaking out and I had terror and anger" and when she felt that one of the nurses was not attending to her needs and was being condescending. She denies that she did it as a way to get back at this this nurse but rather due to feeling more suicidal however she states she did not go through with it because "there is no way to kill yourself in here". Discussed with her my concerns because she was not able to seek out staff support in that moment and she reflects that this is because "they made me mad" but agrees that she did not speak to the evening staff nor the team the following day. Reviewed recommendation for safety linens and paper scrubs since while she is in her room she feels lonely and that tends to be when she has increased thoughts of suicide. She again agrees to come to staff if she has thoughts of self-harm but understands why we would like to have additional precautions at this time to ensure her safety. Physical Exam Psychiatric Orientation: alert and oriented x 3 Apperance: appropriately dressed, appropriately groomed and appeared stated age Eye Contact: good eye contact Motor Behavior: steady gait and station and no abnormal motor movements Speech: normal rate/rhythm/volume of speech Affect: + anxious affect and + irritable affect Mood: + depressed mood, + anxious mood and + irritable mood Thought Process: + perseveration Thought Content: + preoccupation and + cognitive distortions Suicidal Thoughts: denies suicidal plan and denies suicidal intent; + reports suicidal thoughts Homicidal Thoughts: denies homicidal thoughts, denies homicidal plan and denies homicidal intent Hallucinations: no auditory hallucinations and no visual hallucinations Cognition: recent memory grossly intact, remote memory grossly intact, attention grossly intact and language grossly intact Estimated Intelligence: average estimated intelligence and consistent with education level Insight: + limited insight Judgment: + poor judgement Vital Signs (Past 24 Hours) Last Vital Signs Temp 36.9 C 08/23/25 06:58 Pulse 88 08/23/25 06:58 Resp 20 08/23/25 06:58 BP 116/77 08/23/25 06:58 Pulse Ox 100 08/23/25 06:58 O2 Del Method Room Air 08/23/25 06:58 Results & Data ([facility]) Current Inpatient Medications Current Inpatient Medications: Current Inpatient Medications Acetaminophen (Acetaminophen 325 Mg Tab) 650 mg PO Q4H PRN PRN Reason: Headache or Minor Fever Stop: 09/13/25 23:49 Al Hydrox/Mg Hydrox/Simethicone (Aluminum/Magnesium Susp 30 Ml Udc) 30 ml PO Q4H PRN PRN Reason: GI Upset Stop: 09/13/25 23:49 Bismuth Subsalicylate (Bismuth Subsalicylate 262 Mg Chew) 2 tab PO Q30M PRN PRN Reason: Loose Stool/Diarrhea Stop: 09/13/25 23:49 Lorazepam (Lorazepam 1 Mg Tab) 1 mg PO BID PRN PRN Reason: Anxiety Stop: 09/15/25 19:39 Last Admin: 08/20/25 17:15 Dose: 1 mg Magnesium Hydroxide (Magnesium Hydroxide Susp 30 Ml Udc) 30 ml PO DAILY PRN PRN Reason: Constipation Stop: 09/13/25 23:49 Mirtazapine (Mirtazapine Tab 15 Mg Tab) 15 mg PO HS EDIE Stop: 09/18/25 21:59 Last Admin: 08/22/25 22:21 Dose: Not Given Mirtazapine (Mirtazapine Tab 15 Mg Tab) 15 mg PO HS PRN PRN Reason: insomnia Stop: 09/21/25 21:59 Propranolol HCl (Propranolol Hcl 10 Mg Tab) 10 mg PO TID EDIE Stop: 09/18/25 11:29 Last Admin: 08/22/25 22:21 Dose: Not Given Sertraline HCl (Sertraline Hcl 50 Mg Tablet) 25 mg PO QAM EDIE Stop: 09/22/25 08:59 Sodium Chloride (Sodium Chloride 0.65% Na Soln 45 Ml ([place])) 1 - 2 sprays NA PRN PRN PRN Reason: Nasal Dryness/Congestion Stop: 09/13/25 23:49 Mental Health & Subst Abuse Tx Psychiatrist Name of Psychiatrist: Cristina Self Psychiatrist's Date Of Appointment With Psychiatric Provider: 11/02/25 Time of Appointment with Psychiatrist: 2:50p Psychiatric Appointment Comment: [address] [facility] [address], [place] [address] Therapist Name of Therapist: Maggi (Intake) - In person Therapist's Date of Therapist Appointment: 09/18/25 Time of Therapist Appointment: 3:30PM arrival, 4PM appt Therapy Appointment Comment: [address], [address], [place] [address] Range Aide Name of Range Aide: Aislinn Hawkins Phone Number for Range Aide: [phone] Case Management Appointment Comment: [facility] - [phone] Post Discharge Appointments Primary Care Physician Name Of Family Doctor/PCP: Dr. Pandey ([facility] [address]) [address] [place], [place] [address]joans , JOSE MANUEL [place] [id number] Primary Care Date of Future Appointment with PCP: 08/31/25 Time of Appointment with PCP: 1:25PM check in, 1:40PM appt Provider Appointment Comment: Appt scheduled for med managment and PCP notified to refer for mammogram Contact Information Discharge Discharge Address: [address] [place] [address] Angela Valencia [facility] Johana RICHARD [id number]
[2025-08-23] MEDS: SERTRALINE HCL 50 MG TABLET PO SCH (09:40)
[2025-08-23 17:08] LABS: Creatinine, Random Urine 51 mg/dL (20-275)
--- NOTE | 2025-08-24 09:17 | Psychiatric Progress Note ---
Date of Service August 24, 2025 Impression / Recommendations Impression PRASHANT SCHMIDT is a 35-year-old F who currently lives in at home with her 17 y/o son, has a history of depression and anxiety, and was admitted on 08/14/25 23:45 on a 201 voluntary commitment for SI without plan or intent, in the setting of daily panic attacks over the past two weeks, and medication nonadherence over the past 2 years. Diagnostically consistent with severe panic disorder and MDDR, severe. BPD also a possibility. Discussed at length the pharmacologic options for treatment, including primarily returning to Zoloft (if pt is willing to tolerate possible weight gain, trying a different SSRI such as Prozac (which is typically weight neutral), or switching to SNRI class (like Cymbalta). Reviewed R/B of all options. Pt stated she wanted to consider and did not want to decide until the end of the day. I met with her a second time, and she wanted to try Prozac. A: Severe panic disorder which has set off major depression with increasing suspicion for borderline personality disorder with increased dysregulation in setting of co-occurring psychiatric symptoms. Today her affect is a little brighter and she reports some benefit with reduction in intensity of her panic attacks which she attributes to the sertraline. Denial of SI today, will allow return to normal clothes, will continue with safety linens for at least one more day to be reassessed tomorrow. Responding with positive psychological response to sertraline. Ongoing recommendation to use mirtazapine at HS to help with sleep. She remains overwhelmed by medications. She wants to get to higher dose of sertraline but declines further titration at this point as she feels she needs time to adjust before changes are made. MNPR due to intense anxiety and psychic distress, poor boundaries at times, periods of dysregulated behaviors Overall, I spent a total of 45 minutes on this case including meeting with the patient, reviewing the chart, nursing report, multidisciplinary team meeting, orders, and documentation. (1) Panic disorder: (2) Major depressive disorder, recurrent severe without psychotic features: (3) Superficial thrombophlebitis of left leg: (4) Non-adherence to medical treatment: Plan 08/24/2025: -Return to normal clothes, continue with safety linens -Consider further titration of sertraline in next 1-2 days once she is agreeable to this -Ongoing encouragement to try mirtazapine or other sleep medication 08/23/2025: -Continue current medications -Safety linens, paper scrubs -Can continue with normal diet tray as she turns in her silverware and eats in the dining area in front of staff 08/22/2025: -Discontinue fluoxetine -Start sertraline 25mg daily tomorrow -Working on exposure ladder/reward menu for anxious components of treatment -12 hours of vital sign checks tomorrow (6am-6pm) if she takes mirtazapine tonight as she self-identifies this as a reward 08/21/2025: -Continue current medications and tx plan 08/20/2025: -Continue current medications and tx plan 08/19/2025: -Start mirtazapine 15mg HS -Start propranolol 10mg TID scheduled 08/18/2025: -Increase fluoxetine to 20mg daily -Ativan 1mg BID po prn for panic attacks 08/17/25: Utilize CBT, and encouraged patient to identify coping skills to try out. Continuing to encourage as needed use. Giving more time on Prozac. Also ordered labs to rule out other causes of hypertension and tachycardia, which are occurring intermittently. 08/16/25: continue current treatment and medications, and give more time. 08/15/25: The patient was admitted to the [facility] ([facility] mental health unit) on q15 min checks (behavioral with suicide precautions) for safety. The patient will participate in group, recreational, and milieu therapies and will be offered additional individual and family sessions as clinically appropriate. Meds started: Prozac 10mg in AM propranolol 10mg TID PRN anxiety (hold if SBP<100) Home meds continued: none Hospital medicine consult - they ordered CT chest to r/o PE. Inventory Assets Strengths: help seeking Needs: outpatient providers, caregiver support Suicide Risk Level Suicide Risk Level: High-Moderate (q15 min suicide checks) (high level of distress, acute and chronic SI, now with intense panic attacks with hx of multiple suicide attempts and hospitalizations in the past. Does deny recent intent or plan. Does report she feels safe on the unit and can reach out to staff if SI worsens or if she feels unsafe) Suicide Risk Level Comments: Risk Factors Assessment Male: No : Yes Do You Have Access To A Gun?: No Health Problems: Yes Mental Health Diagnoses: Yes Substance Use Disorders: No Previous Attempt: Yes Family History of Suicide: No Previous Psychiatric Hospitalization: Yes Hopelessness: Yes Protective Factors Assessment : No Responsible for Young Children: Yes (son is a minor, but now in [employer] custody) Employed: Yes Supportive Family: No Interval History Identifying Information PRASHANT SCHMIDT is a 35-year-old F who currently lives in at home with her 17 y/o son, has a history of depression and anxiety, and was admitted on 08/14/25 23:45 on a 201 voluntary commitment for SI without plan or intent, in the setting of daily panic attacks over the past two weeks, and medication nonadherence over the past 2 years. Diagnostically consistent with severe panic disorder and MDDR, severe. BPD also a possibility. Chief Complaint "A little better, not having a surge of pure terror today". Review of Systems Sleep Information Total Hours of Sleep: 4 Meal Information Percent Meal Consumed - Breakfast: 90 Percent Meal Consumed - Lunch: 25 Percent Meal Consumed - Dinner: 0 Subjective Subjective Patient was seen & assessed and interval progress reviewed with treatment team. Attending groups, played Fitbit. Rated her mood "1, anxious and annoyed". Staff splitting at times. A lot of help seeking, help rejecting. Slept poorly. Refused scheduled mirtazapine and propranolol. Today she reports starting to think the sertraline is helping her a bit and she reflects that fluoxetine may have worked for her but was worsening her anxiety. She remains too scared to take mirtazapine at HS and continues to sleep very poorly. Today ongoing panic attacks but feels the intensity is a little less. Laughs briefly at times and shows some brightening of affect and mood. Discusses a mantra she's trying to use to cope with the anxiety as she knows she needs to get back to her son. We review previous safety concerns and assess her sense of things currently. She feels she can remain safe in the hospital and denies any current thoughts of suicide nor self-harm. Discussed plan to give her back her clothes and then she could have linens back in coming days if she continues to feel safe. Physical Exam Psychiatric Orientation: alert and oriented x 3 Apperance: appropriately dressed, appropriately groomed and appeared stated age Eye Contact: good eye contact Motor Behavior: steady gait and station and no abnormal motor movements Speech: normal rate/rhythm/volume of speech Affect: + anxious affect (brief brightening at times) Mood: + depressed mood, + anxious mood and + irritable mood Thought Process: + perseveration Thought Content: + preoccupation and + cognitive distortions Suicidal Thoughts: denies suicidal plan and denies suicidal intent; + reports suicidal thoughts (intermittent but none today) Homicidal Thoughts: denies homicidal thoughts, denies homicidal plan and denies homicidal intent Hallucinations: no auditory hallucinations and no visual hallucinations Cognition: recent memory grossly intact, remote memory grossly intact, attention grossly intact and language grossly intact Estimated Intelligence: average estimated intelligence and consistent with educa tion level Insight: + limited insight Judgment: + limited judgement Vital Signs (Past 24 Hours) Last Vital Signs Temp 36.8 C 08/24/25 06:21 Pulse 108 H 08/24/25 06:21 Resp 20 08/24/25 06:21 BP 120/82 08/24/25 06:21 Pulse Ox 100 08/24/25 06:21 O2 Del Method Room Air 08/24/25 06:21 Results & Data ([facility]) Laboratory Results Laboratory Results - last 24 hr 08/17/25 15:47 Ur [place] Metanephrines 104 U Normetanephrine 197 U Total Metanephrines 301 Urine Creatinine 51 Current Inpatient Medications Current Inpatient Medications: Current Inpatient Medications Acetaminophen (Acetaminophen 325 Mg Tab) 650 mg PO Q4H PRN PRN Reason: Headache or Minor Fever Stop: 09/13/25 23:49 Al Hydrox/Mg Hydrox/Simethicone (Aluminum/Magnesium Susp 30 Ml Udc) 30 ml PO Q4H PRN PRN Reason: GI Upset Stop: 09/13/25 23:49 Bismuth Subsalicylate (Bismuth Subsalicylate 262 Mg Chew) 2 tab PO Q30M PRN PRN Reason: Loose Stool/Diarrhea Stop: 09/13/25 23:49 Lorazepam (Lorazepam 1 Mg Tab) 1 mg PO BID PRN PRN Reason: Anxiety Stop: 09/15/25 19:39 Last Admin: 08/20/25 17:15 Dose: 1 mg Magnesium Hydroxide (Magnesium Hydroxide Susp 30 Ml Udc) 30 ml PO DAILY PRN PRN Reason: Constipation Stop: 09/13/25 23:49 Mirtazapine (Mirtazapine Tab 15 Mg Tab) 15 mg PO HS EDIE Stop: 09/18/25 21:59 Last Admin: 08/23/25 22:30 Dose: Not Given Mirtazapine (Mirtazapine Tab 15 Mg Tab) 15 mg PO HS PRN PRN Reason: insomnia Stop: 09/21/25 21:59 Propranolol HCl (Propranolol Hcl 10 Mg Tab) 10 mg PO TID EDIE Stop: 09/18/25 11:29 Last Admin: 08/23/25 22:30 Dose: Not Given Sertraline HCl (Sertraline Hcl 50 Mg Tablet) 25 mg PO QAM EDIE Stop: 09/22/25 08:59 Last Admin: 08/23/25 09:40 Dose: 25 mg Sodium Chloride (Sodium Chloride 0.65% Na Soln 45 Ml ([place])) 1 - 2 sprays NA PRN PRN PRN Reason: Nasal Dryness/Congestion Stop: 09/13/25 23:49 Mental Health & Subst Abuse Tx Psychiatrist Name of Psychiatrist: Cristina Self Psychiatrist's Date Of Appointment With Psychiatric Provider: 11/02/25 Time of Appointment with Psychiatrist: 2:50p Psychiatric Appointment Comment: [address], [place] [address] Therapist Name of Therapist: Maggi (Intake) - In person Therapist's Date of Therapist Appointment: 09/18/25 Time of Therapist Appointment: 3:30PM arrival, 4PM appt Therapy Appointment Comment: [address], [address], [facility] [address] Supervisor [place]ro[place] Name of Supervisor Enrobing: Aislinn Hawkins Phone Number for Supervisor Enrobing: [phone] Case Management Appointment Comment: [facility] [phone] Post Discharge Appointments Primary Care Physician Name Of Family Doctor/PCP: Dr. Pandey (Mary [place]) [address] [place] [address] Primary Care Date of Future Appointment with PCP: 08/31/25 Time of Appointment with PCP: 1:25PM check in, 1:40PM appt Provider Appointment Comment: Appt scheduled for med managment and PCP notified to refer for mammogram Contact Information Discharge Discharge Address: [address] [facility] [address] [place] [address]
--- NOTE | 2025-08-25 09:03 | Psychiatric Progress Note ---
Date of Service August 25, 2025 Impression / Recommendations Impression PRASHANT SCHMIDT is a 35-year-old F who currently lives in at home with her 17 y/o son, has a history of depression and anxiety, and was admitted on 08/14/25 23:45 on a 201 voluntary commitment for SI without plan or intent, in the setting of daily panic attacks over the past two weeks, and medication nonadherence over the past 2 years. Diagnostically consistent with severe panic disorder and MDDR, severe. BPD also a possibility. Discussed at length the pharmacologic options for treatment, including primarily returning to Zoloft (if pt is willing to tolerate possible weight gain, trying a different SSRI such as Prozac (which is typically weight neutral), or switching to SNRI class (like Cymbalta). Reviewed R/B of all options. Pt stated she wanted to consider and did not want to decide until the end of the day. I met with her a second time, and she wanted to try Prozac. A: Increased anxiety today, but did participate in a fairly productive discussion about coping skills. Explored expectations of progress being a straight line, versus days being up and down. Encouraged her to view assess progress/symptoms from a "bird's eye view", rather than "under a microscope". Addressed concerns about potential side effects versus anxiety symptoms. I reminded her that sleep deprivation can worsen anxiety and depression, and encouraged her to utilize Remeron tonight. She did ask for regular linens tonight, however I would like to see her maintain safe behavior for another day or 2. MNPR due to intense anxiety and psychic distress, poor boundaries at times, periods of dysregulated behaviors Overall, I spent a total of 40 minutes on this case including meeting with the patient, reviewing the chart, nursing report, multidisciplinary team meeting, orders, and documentation. (1) Panic disorder: (2) Major depressive disorder, recurrent severe without psychotic features: (3) Superficial thrombophlebitis of left leg: (4) Non-adherence to medical treatment: Plan 08/25/25: - Continue current medications, encourage patient to utilize the medicines that are available to her. - Encouraged active coping by participating in self-directed activities, rather than isolating/being sedentary (which tends to lead to excessive rumination). - Continue safety linens. She can have 1 outfit at a time to minimize risk. Continues on normal tray. 08/24/2025: -Return to normal clothes, continue with safety linens -Consider further titration of sertraline in next 1-2 days once she is agreeable to this -Ongoing encouragement to try mirtazapine or other sleep medication 08/23/2025: -Continue current medications -Safety linens, paper scrubs -Can continue with normal diet tray as she turns in her silverware and eats in the dining area in front of staff 08/22/2025: -Discontinue fluoxetine -Start sertraline 25mg daily tomorrow -Working on exposure ladder/reward menu for anxious components of treatment -12 hours of vital sign checks tomorrow (6am-6pm) if she takes mirtazapine tonight as she self-identifies this as a reward 08/21/2025: -Continue current medications and tx plan 08/20/2025: -Continue current medications and tx plan 08/19/2025: -Start mirtazapine 15mg HS -Start propranolol 10mg TID scheduled 08/18/2025: -Increase fluoxetine to 20mg daily -Ativan 1mg BID po prn for panic attacks 08/17/25: Utilize CBT, and encouraged patient to identify coping skills to try out. Continuing to encourage as needed use. Giving more time on Prozac. Also ordered labs to rule out other causes of hypertension and tachycardia, which are occurring intermittently. 08/16/25: continue current treatment and medications, and give more time. 08/15/25: The patient was admitted to the [facility] ([facility] mental health unit) on q15 min checks (behavioral with suicide precautions) for safety. The patient will participate in group, recreational, and milieu therapies and will be offered additional individual and family sessions as clinically appropriate. Meds started: Prozac 10mg in AM propranolol 10mg TID PRN anxiety (hold if SBP<100) Home meds continued: none Hospital medicine consult - they ordered CT chest to r/o PE. Inventory Assets Strengths: help seeking Needs: outpatient providers, caregiver support Suicide Risk Level Suicide Risk Level: High-Moderate (q15 min suicide checks) (high level of distress, acute and chronic SI, now with intense panic attacks with hx of multiple suicide attempts and hospitalizations in the past. Does deny recent intent or plan. Does report she feels safe on the unit and can reach out to staff if SI worsens or if she feels unsafe) Suicide Risk Level Comments: Risk Factors Assessment Male: No : Yes Do You Have Access To A Gun?: No Health Problems: Yes Mental Health Diagnoses: Yes Substance Use Disorders: No Previous Attempt: Yes Family History of Suicide: No Previous Psychiatric Hospitalization: Yes Hopelessness: Yes Protective Factors Assessment : No Responsible for Young Children: Yes (son is a minor, but now in [employer] custody) Employed: Yes Supportive Family: No Interval History Identifying Information PRASHANT SCHMIDT is a 35-year-old F who currently lives in at home with her 17 y/o son, has a history of depression and anxiety, and was admitted on 08/14/25 23:45 on a 201 voluntary commitment for SI without plan or intent, in the setting of daily panic attacks over the past two weeks, and medication nonadherence over the past 2 years. Diagnostically consistent with severe panic disorder and MDDR, severe. BPD also a possibility. Chief Complaint "[]". Review of Systems Sleep Information Total Hours of Sleep: 2 Meal Information Percent Meal Consumed - Breakfast: 90 Percent Meal Consumed - Lunch: 10 Percent Meal Consumed - Dinner: 50 Subjective Subjective Patient was seen & assessed and interval progress reviewed with nursing per report: safety linens, one outfit, normal tray a little better yesterday - spent time with a peer slept 2 hours last night napping on couch this AM mood 10 and "anxious" asking to pay rent out of room attends groups and participates help seeking/rejecting behaviors refuses propranolol and remeron, accepts zoloft I met with the patient privately in her room. She says "I am a little worse today." She said her body feels "weird and buzzy", and questions whether this is an anxiety symptom or side effect. She perseverated on reading about akathisia as a possible side effect of antidepressants. Notably, she was sitting calmly while discussing this, and did not appear restless. Discussed that this is a relatively rare side effect, and that I did not see evidence of it now discussed that this is a relatively rare side effect, and that I did not see evidence of it now. She was briefly reassured and then asked more questions about what I have seen in the past and how to treated akathisia. I did redirect her to try other coping other than seeking reassurance. Discussed op tions, such as movement-based mindfulness, art therapy, or other distraction techniques. She says she does feel frustrated that she is not already feeling better. Stated "I am trying to stay positive. I trying to get through this so I can see my son." Denies any suicidal ideation. Very anxious today. Poor sleep last night, and feels worried about trying Remeron. Gave encouragement. Physical Exam Psychiatric Orientation: alert and oriented x 3 Apperance: appropriately dressed, appropriately groomed and appeared stated age Eye Contact: good eye contact Motor Behavior: steady gait and station and no abnormal motor movements Speech: normal rate/rhythm/volume of speech Affect: + anxious affect (brief brightening at times), + constricted affect and mood congruent with affect Mood: + depressed mood and + anxious mood Thought Process: goal directed thought process, linear/logical thought process, clear/coherent thought process, + perseveration and thought association intact Thought Content: + preoccupation, + cognitive distortions and reality based without delusions Suicidal Thoughts: denies suicidal thoughts, denies suicidal plan and denies suicidal intent Homicidal Thoughts: denies homicidal thoughts, denies homicidal plan and denies homicidal intent Hallucinations: no auditory hallucinations and no visual hallucinations Cognition: recent memory grossly intact, remote memory grossly intact, attention grossly intact and language grossly intact Estimated Intelligence: average estimated intelligence and consistent with education level Insight: + limited insight Judgment: + limited judgement Vital Signs (Past 24 Hours) Last Vital Signs Temp 36.8 C 08/25/25 06:30 Pulse 123 H 08/25/25 06:31 Resp 18 08/25/25 06:30 BP 124/84 08/25/25 06:31 Pulse Ox 98 08/24/25 19:30 O2 Del Method Room Air 08/24/25 19:30 Results & Data ([facility]) Current Inpatient Medications Current Inpatient Medications: Current Inpatient Medications Acetaminophen (Acetaminophen 325 Mg Tab) 650 mg PO Q4H PRN PRN Reason: Headache or Minor Fever Stop: 09/13/25 23:49 Al Hydrox/Mg Hydrox/Simethicone (Aluminum/Magnesium Susp 30 Ml Udc) 30 ml PO Q4H PRN PRN Reason: GI Upset Stop: 09/13/25 23:49 Bismuth Subsalicylate (Bismuth Subsalicylate 262 Mg Chew) 2 tab PO Q30M PRN PRN Reason: Loose Stool/Diarrhea Stop: 09/13/25 23:49 Lorazepam (Lorazepam 1 Mg Tab) 1 mg PO BID PRN PRN Reason: Anxiety Stop: 09/15/25 19:39 Last Admin: 08/20/25 17:15 Dose: 1 mg Magnesium Hydroxide (Magnesium Hydroxide Susp 30 Ml Udc) 30 ml PO DAILY PRN PRN Reason: Constipation Stop: 09/13/25 23:49 Mirtazapine (Mirtazapine Tab 15 Mg Tab) 15 mg PO HS EDIE Stop: 09/18/25 21:59 Last Admin: 08/24/25 21:04 Dose: Not Given Mirtazapine (Mirtazapine Tab 15 Mg Tab) 15 mg PO HS PRN PRN Reason: insomnia Stop: 09/21/25 21:59 Propranolol HCl (Propranolol Hcl 10 Mg Tab) 10 mg PO TID EDIE Stop: 09/18/25 11:29 Last Admin: 08/24/25 21:04 Dose: Not Given Sertraline HCl (Sertraline Hcl 50 Mg Tablet) 25 mg PO QAM EDIE Stop: 09/22/25 08:59 Last Admin: 08/24/25 09:15 Dose: 25 mg Sodium Chloride (Sodium Chloride 0.65% Na Soln 45 Ml ([place])) 1 - 2 sprays NA PRN PRN PRN Reason: Nasal Dryness/Congestion Stop: 09/13/25 23:49 Mental Health & Subst Abuse Tx Psychiatrist Name of Psychiatrist: Cristina Self Psychiatrist's Date Of Appointment With Psychiatric Provider: 11/02/25 Time of Appointment with Psychiatrist: 2:50p Psychiatric Appointment Comment: [address], [place] [address] Therapist Name of Therapist: Maggi (Intake) - In person Therapist's Date of Therapist Appointment: 09/18/25 Time of Therapist Appointment: 3:30PM arrival, 4PM appt Therapy Appointment Comment: [address], [address], [place] [address] Revenue Stamp Clerk Name of Revenue Stamp Clerk: Aislinn Hawkins Phone Number for Revenue Stamp Clerk: [phone] Case Management Appointment Comment: [facility] [phone] Post Discharge Appointments Primary Care Physician Name Of Family Doctor/PCP: Dr. Pandey ([facility]) [address], [place] [address] Primary Care Date of Future Appointment with PCP: 08/31/25 Time of Appointment with PCP: 1:25PM check in, 1:40PM appt Provider Appointment Comment: Appt scheduled for med managment and PCP notified to refer for mammogram Contact Information Discharge Discharge Address: [address] [place] [address] Angela Valencia [facility] [place] [id number]
--- NOTE | 2025-08-26 09:02 | Psychiatric Progress Note ---
Date of Service August 26, 2025 Impression / Recommendations Impression PRASHANT SCHMIDT is a 35-year-old F who currently lives in at home with her 17 y/o son, has a history of depression and anxiety, and was admitted on 08/14/25 23:45 on a 201 voluntary commitment for SI without plan or intent, in the setting of daily panic attacks over the past two weeks, and medication nonadherence over the past 2 years. Diagnostically consistent with severe panic disorder and MDDR, severe. BPD also a possibility. Discussed at length the pharmacologic options for treatment, including primarily returning to Zoloft (if pt is willing to tolerate possible weight gain, trying a different SSRI such as Prozac (which is typically weight neutral), or switching to SNRI class (like Cymbalta). Reviewed R/B of all options. Pt stated she wanted to consider and did not want to decide until the end of the day. I met with her a second time, and she wanted to try Prozac. A: Heart rate has remained high and I encouraged her to utilize propranolol. Also discussed that participating in regulatory activities and soothing her nervous system will also help decrease her heart rate overall. She is interested in progressive muscle relaxation and guided meditation and asked for resources on this. I did coordinate with the staff regarding that. Will also go up on Zoloft to 50 mg. Presently working with the staff to create a behavioral plan, and did communicate with the patient that this is a document that will be given to her likely tomorrow to get everyone on the same page about rules/limits and expectations. considering OCD diagnosis, given patient's cycle seeking reassurance, performing habits of vitals checking, and repeating conversations that she has already had about the risks of medicines etc. MNPR due to intense anxiety and psychic distress, poor boundaries at times, periods of dysregulated behaviors Overall, I spent a total of 40 minutes on this case including meeting with the patient, reviewing the chart, nursing report, multidisciplinary team meeting, orders, and documentation. (1) Panic disorder: (2) Major depressive disorder, recurrent severe without psychotic features: (3) Superficial thrombophlebitis of left leg: (4) Non-adherence to medical treatment: Plan 08/26/25: - increase Zoloft to 50 mg daily - encouraged use of propranolol, which is now PRN - continue to encourage Remeron for sleep which patient declines - continue safety linens. She should have only 1 outfit at a time. - Staff is working on a behavioral plan, which we will review at treatment team tomorrow. 08/25/25: - Continue current medications, encourage patient to utilize the medicines that are available to her. - Encouraged active coping by participating in self-directed activities, rather than isolating/being sedentary (which tends to lead to excessive rumination). - Continue safety linens. She can have 1 outfit at a time to minimize risk. Continues on normal tray. 08/24/2025: -Return to normal clothes, continue with safety linens -Consider further titration of sertraline in next 1-2 days once she is agreeable to this -Ongoing encouragement to try mirtazapine or other sleep medication 08/23/2025: -Continue current medications -Safety linens, paper scrubs -Can continue with normal diet tray as she turns in her silverware and eats in the dining area in front of staff 08/22/2025: -Discontinue fluoxetine -Start sertraline 25mg daily tomorrow -Working on exposure ladder/reward menu for anxious components of treatment -12 hours of vital sign checks tomorrow (6am-6pm) if she takes mirtazapine t onight as she self-identifies this as a reward 08/21/2025: -Continue current medications and tx plan 08/20/2025: -Continue current medications and tx plan 08/19/2025: -Start mirtazapine 15mg HS -Start propranolol 10mg TID scheduled 08/18/2025: -Increase fluoxetine to 20mg daily -Ativan 1mg BID po prn for panic attacks 08/17/25: Utilize CBT, and encouraged patient to identify coping skills to try out. Continuing to encourage as needed use. Giving more time on Prozac. Also ordered labs to rule out other causes of hypertension and tachycardia, which are occurring intermittently. 08/16/25: continue current treatment and medications, and give more time. 08/15/25: The patient was admitted to the [facility] ([facility] mental health unit) on q15 min checks (behavioral with suicide precautions) for safety. The patient will participate in group, recreational, and milieu therapies and will be offered additional individual and family sessions as clinically appropriate. Meds started: Prozac 10mg in AM propranolol 10mg TID PRN anxiety (hold if SBP<100) Home meds continued: none Hospital medicine consult - they ordered CT chest to r/o PE. Inventory Assets Strengths: help seeking Needs: outpatient providers, caregiver support Suicide Risk Level Suicide Risk Level: High-Moderate (q15 min suicide checks) (high level of distress, acute and chronic SI, now with intense panic attacks with hx of multiple suicide attempts and hospitalizations in the past. Does deny recent intent or plan. Does report she feels safe on the unit and can reach out to staff if SI worsens or if she feels unsafe) Suicide Risk Level Comments: Risk Factors Assessment Male: No : Yes Do You Have Access To A Gun?: No Health Problems: Yes Mental Health Diagnoses: Yes Substance Use Disorders: No Previous Attempt: Yes Family History of Suicide: No Previous Psychiatric Hospitalization: Yes Hopelessness: Yes Protective Factors Assessment : No Responsible for Young Children: Yes (son is a minor, but now in [employer] custody) Employed: Yes Supportive Family: No Interval History Identifying Information PRASHANT SCHMIDT is a 35-year-old F who currently lives in at home with her 17 y/o son, has a history of depression and anxiety, and was admitted on 08/14/25 23:45 on a 201 voluntary commitment for SI without plan or intent, in the setting of daily panic attacks over the past two weeks, and medication nonadherence over the past 2 years. Diagnostically consistent with severe panic disorder and MDDR, severe. BPD also a possibility. Chief Complaint "[]". Review of Systems Sleep Information Total Hours of Sleep: 2.5 Meal Information Percent Meal Consumed - Breakfast: 90 Percent Meal Consumed - Lunch: 50 Percent Meal Consumed - Dinner: 100 Subjective Subjective Patient was seen & assessed and interval progress reviewed with nursing and social work per report: refused HS meds attended group mood 12/04 and "agitated" staff is setting limits with overutilizing the TV and common area - pt will watch moravian content for hours on end. socializes with a peer slept 3.5hr I met with the patient privately in her room. She expressed frustration with staff, who are setting limits with her yesterday. She pointed out several examples that she felt were "unfair" between limits that with her and limits with other peers. Black and white language and staff splitting evident thr oughout the discussion. Invited pt to try on other perspectives while validating frustration. Later, attempted to redirect conversation to coping skills that are available to her when she is under distress that do not require staff or use of the television. She says she asked for handouts and is ignored by staff; I confirmed with staff later that many handouts have already been provided. She says she gets overwhelmed and needs more support, but also asked for the safety linens to be discontinued, as it is uncomfortable to sleep. States that her anxiety remains very high. Discussed that she compulsively likes to have her blood pressure and heart rate checked when she is feeling anxious. Discussed obsessive/compulsive cycle, and the importance of resisting compulsions to avoid reinforcing that cycle. Patient said without prompting "I am being stubborn about that propranolol. I should probably take it." She feels she is tolerating Zoloft well, but worries a lot about side effects. She she said "I think I have hypochondria." She recalls that she needed 150 mg of Zoloft in the past, and is open to increasing the dose now. Physical Exam Psychiatric Orientation: alert and oriented x 3 Apperance: appropriately dressed, appropriately groomed and appeared stated age Eye Contact: good eye contact Motor Behavior: steady gait and station and no abnormal motor movements Speech: normal rate/rhythm/volume of speech Affect: + anxious affect (brief brightening at times), + constricted affect and mood congruent with affect Mood: + anxious mood Thought Process: goal directed thought process, linear/logical thought process, clear/coherent thought process and thought association intact Thought Content: + obsessions, + cognitive distortions, reality based without delusions and + compulsions Suicidal Thoughts: denies suicidal thoughts, denies suicidal plan and denies suicidal intent Homicidal Thoughts: denies homicidal thoughts, denies homicidal plan and denies homicidal intent Hallucinations: no auditory hallucinations and no visual hallucinations Cognition: recent memory grossly intact, remote memory grossly intact, attention grossly intact and language grossly intact Estimated Intelligence: average estimated intelligence and consistent with education level Insight: + limited insight Judgment: + limited judgement Vital Signs (Past 24 Hours) Last Vital Signs Temp 37 C 08/26/25 06:26 Pulse 120 H 08/26/25 06:27 Resp 18 08/26/25 06:26 BP 111/80 08/26/25 06:27 Pulse Ox 98 08/24/25 19:30 O2 Del Method Room Air 08/24/25 19:30 Results & Data ([facility]) Current Inpatient Medications Current Inpatient Medications: Current Inpatient Medications Acetaminophen (Acetaminophen 325 Mg Tab) 650 mg PO Q4H PRN PRN Reason: Headache or Minor Fever Stop: 09/13/25 23:49 Al Hydrox/Mg Hydrox/Simethicone (Aluminum/Magnesium Susp 30 Ml Udc) 30 ml PO Q4H PRN PRN Reason: GI Upset Stop: 09/13/25 23:49 Bismuth Subsalicylate (Bismuth Subsalicylate 262 Mg Chew) 2 tab PO Q30M PRN PRN Reason: Loose Stool/Diarrhea Stop: 09/13/25 23:49 Lorazepam (Lorazepam 1 Mg Tab) 1 mg PO BID PRN PRN Reason: Anxiety Stop: 09/15/25 19:39 Last Admin: 08/20/25 17:15 Dose: 1 mg Magnesium Hydroxide (Magnesium Hydroxide Susp 30 Ml Udc) 30 ml PO DAILY PRN PRN Reason: Constipation Stop: 09/13/25 23:49 Mirtazapine (Mirtazapine Tab 15 Mg Tab) 15 mg PO HS EDIE Stop: 09/18/25 21:59 Last Admin: 08/25/25 21:10 Dose: Not Given Mirtazapine (Mirtazapine Tab 15 Mg Tab) 15 mg PO HS PRN PRN Reason: insomnia Stop: 09/21/25 21:59 Propranolol HCl (Propranolol Hcl 10 Mg Tab) 10 mg PO TID EDIE Stop: 09/18/25 11:29 Last Admin: 08/25/25 21:10 Dose: Not Given Sertraline HCl (Sertraline Hcl 50 Mg Tablet) 25 mg PO QAM EDIE Stop: 09/22/25 08:59 Last Admin: 08/25/25 09:41 Dose: 25 mg Sodium Chloride (Sodium Chloride 0.65% Na Soln 45 Ml ([place])) 1 - 2 sprays NA PRN PRN PRN Reason: Nasal Dryness/Congestion Stop: 09/13/25 23:49 Mental Health & Subst Abuse Tx Psychiatrist Name of Psychiatrist: Cristina BrooksAroldo Self Psychiatrist's Date Of Appointment With Psychiatric Provider: 11/02/25 Time of Appointment with Psychiatrist: 2:50p Psychiatric Appointment Comment: [address], [place] [address] Therapist Name of Therapist: Maggi (Intake) - In person Therapist's Date of Therapist Appointment: 09/18/25 Time of Therapist Appointment: 3:30PM arrival, 4PM appt Therapy Appointment Comment: [address], [address], [place] [address] Ict Sales Assistant Name of Ict Sales Assistant: Aislinn Hawkins Phone Number for Ict Sales Assistant: [phone] Case Management Appointment Comment: [facility] - [phone] Post Discharge Appointments Primary Care Physician Name Of Family Doctor/PCP: Dr. Pandey ([facility]) [address] [facility], [place] [address] Primary Care Date of Future Appointment with PCP: 08/31/25 Time of Appointment with PCP: 1:25PM check in, 1:40PM appt Provider Appointment Comment: Appt scheduled for med managment and PCP notified to refer for mammogram Contact Information Discharge Discharge Address: [address] [place] [address] Angela Valencia [facility] [address] [place] [address]
[2025-08-26] MEDS ORDERED: PROPRANOLOL HCL 10 MG TAB PO PRN (12:01)
[2025-08-27] MEDS: SERTRALINE HCL 50 MG TABLET PO SCH (08:52)
--- NOTE | 2025-08-27 09:06 | Psychiatric Progress Note ---
Date of Service August 27, 2025 Impression / Recommendations Impression PRASHANT SCHMIDT is a 35-year-old F who currently lives in at home with her 17 y/o son, has a history of depression and anxiety, and was admitted on 08/14/25 23:45 on a 201 voluntary commitment for SI without plan or intent, in the setting of daily panic attacks over the past two weeks, and medication nonadherence over the past 2 years. Diagnostically consistent with severe panic disorder and MDDR, severe. BPD also a possibility. Discussed at length the pharmacologic options for treatment, including primarily returning to Zoloft (if pt is willing to tolerate possible weight gain, trying a different SSRI such as Prozac (which is typically weight neutral), or switching to SNRI class (like Cymbalta). Reviewed R/B of all options. Pt stated she wanted to consider and did not want to decide until the end of the day. I met with her a second time, and she wanted to try Prozac. A: Extensive discussion about health related anxiety and her obsessive/compulsive tendencies. She reports her father has significant OCD, and she has wondered about it for herself, but was never officially diagnosed. Also discussed her tendency to use coping skills to the extreme (ie - doing exercises all day, watching videos for hours on end, etc), and encouraged her to develop flexibility and utilize different skills throughout the day. MNPR due to intense anxiety and psychic distress, poor boundaries at times, periods of dysregulated behaviors Overall, I spent a total of 45 minutes on this case including meeting with the patient, reviewing the chart, nursing report, multidisciplinary team meeting, orders, and documentation. (1) Panic disorder: (2) Major depressive disorder, recurrent severe without psychotic features: (3) Superficial thrombophlebitis of left leg: (4) Non-adherence to medical treatment: Plan 08/27/25: -continue current treatment and meds -behavioral plan reviewed in treatment team, and nursing will discuss with patient today -if no escalation of behaviors in the next day, might return to regular linens tomorrow. 08/26/25: - increase Zoloft to 50 mg daily - encouraged use of propranolol, which is now PRN - continue to encourage Remeron for sleep which patient declines - continue safety linens. She should have only 1 outfit at a time. - Staff is working on a behavioral plan, which we will review at treatment team tomorrow. 08/25/25: - Continue current medications, encourage patient to utilize the medicines that are available to her. - Encouraged active coping by participating in self-directed activities, rather than isolating/being sedentary (which tends to lead to excessive rumination). - Continue safety linens. She can have 1 outfit at a time to minimize risk. Continues on normal tray. 08/24/2025: -Return to normal clothes, continue with safety linens -Consider further titration of sertraline in next 1-2 days once she is agreeable to this -Ongoing encouragement to try mirtazapine or other sleep medication 08/23/2025: -Continue current medications -Safety linens, paper scrubs -Can continue with normal diet tray as she turns in her silverware and eats in the dining area in front of staff 08/22/2025: -Discontinue fluoxetine -Start sertraline 25mg daily tomorrow -Working on exposure ladder/reward menu for anxious components of treatment -12 hours of vital sign checks tomorrow (6am-6pm) if she takes mirtazapine tonight as she self-identifies this as a reward 08/21/2025: -Continue current medications and tx plan 08/20/2025: -Continue current medications and tx plan 08/19/2025: -Start mirtazapine 15mg HS -Start propranolol 10mg TID scheduled 08/18/2025: -Increase fluoxetine to 20mg daily -Ativan 1mg BID po prn for panic attacks 08/17/25: Utilize CBT, and encouraged patient to identify coping skills to try out. Continuing to encourage as needed use. Giving more time on Prozac. Also ordered labs to rule out other causes of hypertension and tachycardia, which are occurring intermittently. 08/16/25: continue current treatment and medications, and give more time. 08/15/25: The patient was admitted to the [facility] ([facility] mental health unit) on q15 min checks (behavioral with suicide precautions) for safety. The patient will participate in group, recreational, and milieu therapies and will be offered additional individual and family sessions as clinically appropriate. Meds started: Prozac 10mg in AM propranolol 10mg TID PRN anxiety (hold if SBP<100) Home meds continued: none Hospital medicine consult - they ordered CT chest to r/o PE. Inventory Assets Strengths: help seeking Needs: outpatient providers, caregiver support Suicide Risk Level Suicide Risk Level: High-Moderate (q15 min suicide checks) (high level of distress, acute and chronic SI, now with intense panic attacks with hx of multiple suicide attempts and hospitalizations in the past. Does deny recent intent or plan. Does report she feels safe on the unit and can reach out to staff if SI worsens or if she feels unsafe) Suicide Risk Level Comments: Risk Factors Assessment Male: No : Yes Do You Have Access To A Gun?: No Health Problems: Yes Mental Health Diagnoses: Yes Substance Use Disorders: No Previous Attempt: Yes Family History of Suicide: No Previous Psychiatric Hospitalization: Yes Hopelessness: Yes Protective Factors Assessment : No Responsible for Young Children: Yes (son is a minor, but now in [employer] custody) Employed: Yes Supportive Family: No Interval History Identifying Information PRASHANT SCHMIDT is a 35-year-old F who currently lives in at home with her 17 y/o son, has a history of depression and anxiety, and was admitted on 08/14/25 23:45 on a 201 voluntary commitment for SI without plan or intent, in the setting of daily panic attacks over the past two weeks, and medication nonadherence over the past 2 years. Diagnostically consistent with severe panic disorder and MDDR, severe. BPD also a possibility. Chief Complaint "I'm trying everything I can". Review of Systems Sleep Information Total Hours of Sleep: 2 Meal Information Percent Meal Consumed - Breakfast: 100 Percent Meal Consumed - Lunch: 100 Percent Meal Consumed - Dinner: 50 Subjective Subjective Patient was seen & assessed and interval progress reviewed with treatment team. per report: accepting zoloft refuses remeron less panic episodes yesterday has one outfit at a time rated mood 3/10, "hopeful" held a bible study with her peers did some yoga still not sleeping well I met with pt privately in her room. She said that she continues to feel very anxious in the mornings. She's been attempting to practice vagus nerve training activities - stretching, breathing, grounding. "I'm just going to do basically do it all day. They work a little bit." Discussed her concerns that her HR increases and BP decreases when she stands, but she does not feel dizzy at all. She asked many questions about what a normal range of blood pressures and heart rate would be, and what is considered dangerous. She described finding motivation to cope by focusing on her son. She wants to be as healthy as possible for him. Appropriately tearful when discussing missing him and worrying about him, since he is in [employer] custody currently. Physical Exam Psychiatric Orientation: alert and oriented x 3 Apperance: appropriately dressed, appropriately groomed and appeared stated age Eye Contact: good eye contact Motor Behavior: steady gait and station and no abnormal motor movements Speech: normal rate/rhythm/volume of speech Affect: + depressed affect, + anxious affect (brief brightening at times), + tearful affect, + constricted affect and mood congruent with affect Mood: + depressed mood and + anxious mood Thought Process: goal directed thought process, linear/logical thought process, clear/coherent thought process and thought association intact Thought Content: + obsessions, + cognitive distortions, reality based without delusions and + compulsions Suicidal Thoughts: denies suicidal thoughts, denies suicidal plan and denies suicidal intent Homicidal Thoughts: denies homicidal thoughts, denies homicidal plan and denies homicidal intent Hallucinations: no auditory hallucinations and no visual hallucinations Cognition: recent memory grossly intact, remote memory grossly intact, attention grossly intact and language grossly intact Estimated Intelligence: average estimated intelligence and consistent with education level Insight: + limited insight Judgment: + limited judgement Vital Signs (Past 24 Hours) Last Vital Signs Temp 36.8 C 08/27/25 06:31 Pulse 130 H 08/27/25 06:31 Resp 18 08/27/25 06:31 BP 133/81 08/27/25 06:31 Pulse Ox 98 08/24/25 19:30 O2 Del Method Room Air 08/24/25 19:30 Results & Data ([facility]) Current Inpatient Medications Current Inpatient Medications: Current Inpatient Medications Acetaminophen (Acetaminophen 325 Mg Tab) 650 mg PO Q4H PRN PRN Reason: Headache or Minor Fever Stop: 09/13/25 23:49 Al Hydrox/Mg Hydrox/Simethicone (Aluminum/Magnesium Susp 30 Ml Udc) 30 ml PO Q4H PRN PRN Reason: GI Upset Stop: 09/13/25 23:49 Bismuth Subsalicylate (Bismuth Subsalicylate 262 Mg Chew) 2 tab PO Q30M PRN PRN Reason: Loose Stool/Diarrhea Stop: 09/13/25 23:49 Lorazepam (Lorazepam 1 Mg Tab) 1 mg PO BID PRN PRN Reason: Anxiety Stop: 09/15/25 19:39 Last Admin: 08/20/25 17:15 Dose: 1 mg Magnesium Hydroxide (Magnesium Hydroxide Susp 30 Ml Udc) 30 ml PO DAILY PRN PRN Reason: Constipation Stop: 09/13/25 23:49 Mirtazapine (Mirtazapine Tab 15 Mg Tab) 15 mg PO HS EDIE Stop: 09/18/25 21:59 Last Admin: 08/26/25 20:33 Dose: Not Given Mirtazapine (Mirtazapine Tab 15 Mg Tab) 15 mg PO HS PRN PRN Reason: insomnia Stop: 09/21/25 21:59 Propranolol HCl (Propranolol Hcl 10 Mg Tab) 10 mg PO TID PRN PRN Reason: Anxiety Stop: 09/18/25 11:29 Sertraline HCl (Sertraline Hcl 50 Mg Tablet) 50 mg PO QAM EDIE Stop: 09/26/25 08:59 Last Admin: 08/27/25 08:52 Dose: 50 mg Sodium Chloride (Sodium Chloride 0.65% Na Soln 45 Ml ([place])) 1 - 2 sprays NA PRN PRN PRN Reason: Nasal Dryness/Congestion Stop: 09/13/25 23:49 Mental Health & Subst Abuse Tx Psychiatrist Name of Psychiatrist: Cristina Self Psychiatrist's Date Of Appointment With Psychiatric Provider: 11/02/25 Time of Appointment with Psychiatrist: 2:50p Psychiatric Appointment Comment: [address] [facility] [address], [place] [address] Therapist Name of Therapist: Maggi (Intake) - In person Therapist's Date of Therapist Appointment: 09/18/25 Time of Therapist Appointment: 3:30PM arrival, 4PM appt Therapy Appointment Comment: [address], [address], [place] [address] Automatic Packer Operator Name of Automatic Packer Operator: Aislinn Hawkins Phone Number for Automatic Packer Operator: [phone] Case Management Appointment Comment: [facility] [phone] Post Discharge Appointments Primary Care Physician Name Of Family Doctor/PCP: Dr. Pandey ([facility]) [address], [place] [address] Primary Care Date of Future Appointment with PCP: 08/31/25 Time of Appointment with PCP: 1:25PM check in, 1:40PM appt Provider Appointment Comment: Appt scheduled for med managment and PCP notified to refer for mammogram Contact Information Discharge Discharge Address: [address] [place] [address] Angela Valencia [facility] [place] [address]
--- NOTE | 2025-08-28 08:52 | Psychiatric Progress Note ---
Date of Service August 28, 2025 Impression / Recommendations Impression PRASHANT SCHMIDT is a 35-year-old F who currently lives in at home with her 17 y/o son, has a history of depression and anxiety, and was admitted on 08/14/25 23:45 on a 201 voluntary commitment for SI without plan or intent, in the setting of daily panic attacks over the past two weeks, and medication nonadherence over the past 2 years. Diagnostically consistent with severe panic disorder and MDDR, severe. BPD also a possibility. Discussed at length the pharmacologic options for treatment, including primarily returning to Zoloft (if pt is willing to tolerate possible weight gain, trying a different SSRI such as Prozac (which is typically weight neutral), or switching to SNRI class (like Cymbalta). Reviewed R/B of all options. Pt stated she wanted to consider and did not want to decide until the end of the day. I met with her a second time, and she wanted to try Prozac. A: Pt starting to report some improvement. Tolerating zoloft dose increase. Continue to encourage engagement in treatment, groups, etc. Behavioral plan ongoing - reviewed with staff this AM in huddle. MNPR due to intense anxiety and psychic distress, poor boundaries at times, periods of dysregulated behaviors Overall, I spent a total of 37 minutes on this case including meeting with the patient, reviewing the chart, nursing report, multidisciplinary team meeting, orders, and documentation. (1) Panic disorder: (2) Major depressive disorder, recurrent severe without psychotic features: (3) Superficial thrombophlebitis of left leg: (4) Non-adherence to medical treatment: Plan 08/28/25: -continue current meds and treatment. -Gave pt YBOCS to complete 08/27/25: -continue current treatment and meds -behavioral plan reviewed in treatment team, and nursing will discuss with patient today -if no escalation of behaviors in the next day, might return to regular linens tomorrow. 08/26/25: - increase Zoloft to 50 mg daily - encouraged use of propranolol, which is now PRN - continue to encourage Remeron for sleep which patient declines - continue safety linens. She should have only 1 outfit at a time. - Staff is working on a behavioral plan, which we will review at treatment team tomorrow. 08/25/25: - Continue current medications, encourage patient to utilize the medicines that are available to her. - Encouraged active coping by participating in self-directed activities, rather than isolating/being sedentary (which tends to lead to excessive rumination). - Continue safety linens. She can have 1 outfit at a time to minimize risk. Continues on normal tray. 08/24/2025: -Return to normal clothes, continue with safety linens -Consider further titration of sertraline in next 1-2 days once she is agreeable to this -Ongoing encouragement to try mirtazapine or other sleep medication 08/23/2025: -Continue current medications -Safety linens, paper scrubs -Can continue with normal diet tray as she turns in her silverware and eats in the dining area in front of staff 08/22/2025: -Discontinue fluoxetine -Start sertraline 25mg daily tomorrow -Working on exposure ladder/reward menu for anxious components of treatment -12 hours of vital sign checks tomorrow (6am-6pm) if she takes mirtazapine tonight as she self-identifies this as a reward 08/21/2025: -Continue current medications and tx plan 08/20/2025: -Continue current medications and tx plan 08/19/2025: -Start mirtazapine 15mg HS -Start propranolol 10mg TID scheduled 08/18/2025: -Increase fluoxetine to 20mg daily -Ativan 1mg BID po prn for panic attacks 08/17/25: Utilize CBT, and encouraged patient to identify coping skills to try out. Continuing to encourage as needed use. Giving more time on Prozac. Also ordered labs to rule out other causes of hypertension and tachycardia, which are occurring intermittently. 08/16/25: continue current treatment and medications, and give more time. 08/15/25: The patient was admitted to the [facility] ([facility]) on q15 min checks (behavioral with suicide precautions) for safety. The patient will participate in group, recreational, and milieu therapies and will be offered additional individual and family sessions as clinically appropriate. Meds started: Prozac 10mg in AM propranolol 10mg TID PRN anxiety (hold if SBP<100) Home meds continued: none Hospital medicine consult - they ordered CT chest to r/o PE. Inventory Assets Strengths: help seeking Needs: outpatient providers, caregiver support Suicide Risk Level Suicide Risk Level: High-Moderate (q15 min suicide checks) (high level of distress, acute and chronic SI, now with intense panic attacks with hx of multiple suicide attempts and hospitalizations in the past. Does deny recent intent or plan. Does report she feels safe on the unit and can reach out to staff if SI worsens or if she feels unsafe) Suicide Risk Level Comments: Risk Factors Assessment Male: No : Yes Do You Have Access To A Gun?: No Health Problems: Yes Mental Health Diagnoses: Yes Substance Use Disorders: No Previous Attempt: Yes Family History of Suicide: No Previous Psychiatric Hospitalization: Yes Hopelessness: Yes Protective Factors Assessment : No Responsible for Young Children: Yes (son is a minor, but now in C[employer] custody) Employed: Yes Supportive Family: No Interval History Identifying Information PRASHANT SCHMIDT is a 35-year-old F who currently lives in at home with her 17 y/o son, has a history of depression and anxiety, and was admitted on 08/14/25 23:45 on a 201 voluntary commitment for SI without plan or intent, in the setting of daily panic attacks over the past two weeks, and medication nonadherence over the past 2 years. Diagnostically consistent with severe panic disorder and MDDR, severe. BPD also a possibility. Chief Complaint "I"m still struggling but it's getting more tolerable". 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 less needy not coming to nurse's station as frequently reported pain in lateral leg up late till around 1am, slept 5 hours mood 4/10 and "positive" I met with the patient privately in her room. She reported some brain fog today, and wonders if it's a side effect. Also reports a mild tension headache. Does report she's had no significant panic attack in the last 2 days. "I had a small one the day before". Also reports the depression is "not bad". She is still h aving high anxiety in the mornings, and feels "shaky" during those times. "I'm still struggling, but it's getting more tolerable." Trying to focus on her son as motivation to improve. "I need to be hopeful for my son". Her CM brought in a photo of him today, and gave an update. He is still in Respite care, but they are going to try to transition him to a mcfp soon. She says she's been considering mcfp placement for him for a while, and "it's time." Denies SI. No AVH or paranoia. Physical Exam Psychiatric Orientation: alert and oriented x 3 Apperance: appropriately dressed, appropriately groomed and appeared stated age Eye Contact: good eye contact Motor Behavior: steady gait and station and no abnormal motor movements Speech: normal rate/rhythm/volume of speech Affect: + constricted affect and mood congruent with affect Mood: + anxious mood Thought Process: goal directed thought process, linear/logical thought process, clear/coherent thought process, + perseveration and thought association intact Thought Content: + preoccupation, + obsessions, + cognitive distortions, reality based without delusions and + loneliness Suicidal Thoughts: denies suicidal thoughts, denies suicidal plan and denies suicidal intent Homicidal Thoughts: denies homicidal thoughts, denies homicidal plan and denies homicidal intent Hallucinations: no auditory hallucinations and no visual hallucinations Cognition: recent memory grossly intact, remote memory grossly intact, attention grossly intact and language grossly intact Estimated Intelligence: average estimated intelligence and consistent with education level Insight: + limited insight improving Judgment: + limited judgement improving Vital Signs (Past 24 Hours) Last Vital Signs Temp 36.5 C 08/28/25 06:00 Pulse 90 08/28/25 06:26 Resp 16 08/28/25 06:00 BP 106/73 08/28/25 06:26 Pulse Ox 98 08/24/25 19:30 O2 Del Method Room Air 08/24/25 19:30 Results & Data ([facility]) Current Inpatient Medications Current Inpatient Medications: Current Inpatient Medications Acetaminophen (Acetaminophen 325 Mg Tab) 650 mg PO Q4H PRN PRN Reason: Headache or Minor Fever Stop: 09/13/25 23:49 Al Hydrox/Mg Hydrox/Simethicone (Aluminum/Magnesium Susp 30 Ml Udc) 30 ml PO Q4H PRN PRN Reason: GI Upset Stop: 09/13/25 23:49 Bismuth Subsalicylate (Bismuth Subsalicylate 262 Mg Chew) 2 tab PO Q30M PRN PRN Reason: Loose Stool/Diarrhea Stop: 09/13/25 23:49 Lorazepam (Lorazepam 1 Mg Tab) 1 mg PO BID PRN PRN Reason: Anxiety Stop: 09/15/25 19:39 Last Admin: 08/20/25 17:15 Dose: 1 mg Magnesium Hydroxide (Magnesium Hydroxide Susp 30 Ml Udc) 30 ml PO DAILY PRN PRN Reason: Constipation Stop: 09/13/25 23:49 Mirtazapine (Mirtazapine Tab 15 Mg Tab) 15 mg PO HS EDIE Stop: 09/18/25 21:59 Last Admin: 08/27/25 22:07 Dose: Not Given Mirtazapine (Mirtazapine Tab 15 Mg Tab) 15 mg PO HS PRN PRN Reason: insomnia Stop: 09/21/25 21:59 Propranolol HCl (Propranolol Hcl 10 Mg Tab) 10 mg PO TID PRN PRN Reason: Anxiety Stop: 09/18/25 11:29 Sertraline HCl (Sertraline Hcl 50 Mg Tablet) 50 mg PO QAM EDIE Stop: 09/26/25 08:59 Last Admin: 08/27/25 08:52 Dose: 50 mg Sodium Chloride (Sodium Chloride 0.65% Na Soln 45 Ml ([place])) 1 - 2 sprays NA PRN PRN PRN Reason: Nasal Dryness/Congestion Stop: 09/13/25 23:49 Mental Health & Subst Abuse Tx Psychiatrist Name of Psychiatrist: Cristina Self Psychiatrist's Date Of Appointment With Psychiatric Provider: 11/02/25 Time of Appointment with Psychiatrist: 2:50p Psychiatric Appointment Comment: [address], [place] [address] Therapist Name of Therapist: Maggi (Intake) - In person Therapist's Date of Therapist Appointment: 09/18/25 Time of Therapist Appointment: 3:30PM arrival, 4PM appt Therapy Appointment Comment: [address], [address], [place] [address] Case Specialist Name of Case Specialist: Aislinn Hawkins Phone Number for Case Specialist: [phone] Case Management Appointment Comment: [facility] [phone] Post Discharge Appointments Primary Care Physician Name Of Family Doctor/PCP: Dr. Pandey ([facility]) [address] , [place] [address] Primary Care Date of Future Appointment with PCP: 09/10/25 Time of Appointment with PCP: 2pm Provider Appointment Comment: Appt scheduled for med managment and PCP notified to refer for mammogram Contact Information Discharge Discharge Address: [address] [place] [address] Angela Valencia [facility] [address] [place] [address]
--- NOTE | 2025-08-29 08:59 | Psychiatric Progress Note ---
Date of Service August 29, 2025 Impression / Recommendations Impression PRASHANT SCHMIDT is a 35-year-old F who currently lives in at home with her 17 y/o son, has a history of depression and anxiety, and was admitted on 08/14/25 23:45 on a 201 voluntary commitment for SI without plan or intent, in the setting of daily panic attacks over the past two weeks, and medication nonadherence over the past 2 years. Diagnostically consistent with severe panic disorder and MDDR, severe. BPD also a possibility. Discussed at length the pharmacologic options for treatment, including primarily returning to Zoloft (if pt is willing to tolerate possible weight gain, trying a different SSRI such as Prozac (which is typically weight neutral), or switching to SNRI class (like Cymbalta). Reviewed R/B of all options. Pt stated she wanted to consider and did not want to decide until the end of the day. I met with her a second time, and she wanted to try Prozac. A: Tolerating return of regular linens. Tolerating increased anxiety without any return of SI. Clearly doing good cognitive work, challenging NATs and attempting to reframe. No medication changes today. Discussed possible IOP referral with treatment team today. MNPR due to intense anxiety and psychic distress, poor boundaries at times, periods of dysregulated behaviors Overall, I spent a total of 27 minutes on this case including meeting with the patient, reviewing the chart, nursing report, multidisciplinary team meeting, orders, and documentation. (1) Panic disorder: (2) Major depressive disorder, recurrent severe without psychotic features: (3) Superficial thrombophlebitis of left leg: (4) Non-adherence to medical treatment: Plan 08/29/25: -Continue current meds and treatment. 08/28/25: -continue current meds and treatment. -Gave pt YBOCS to complete 08/27/25: -continue current treatment and meds -behavioral plan reviewed in treatment team, and nursing will discuss with patient today -if no escalation of behaviors in the next day, might return to regular linens tomorrow. 08/26/25: - increase Zoloft to 50 mg daily - encouraged use of propranolol, which is now PRN - continue to encourage Remeron for sleep which patient declines - continue safety linens. She should have only 1 outfit at a time. - Staff is working on a behavioral plan, which we will review at treatment team tomorrow. 08/25/25: - Continue current medications, encourage patient to utilize the medicines that are available to her. - Encouraged active coping by participating in self-directed activities, rather than isolating/being sedentary (which tends to lead to excessive rumination). - Continue safety linens. She can have 1 outfit at a time to minimize risk. Continues on normal tray. 08/24/2025: -Return to normal clothes, continue with safety linens -Consider further titration of sertraline in next 1-2 days once she is agreeable to this -Ongoing encouragement to try mirtazapine or other sleep medication 08/23/2025: -Continue current medications -Safety linens, paper scrubs -Can continue with normal diet tray as she turns in her silverware and eats in the dining area in front of staff 08/22/2025: -Discontinue fluoxetine -Start sertraline 25mg daily tomorrow -Working on exposure ladder/reward menu for anxious components of treatment -12 hours of vital sign checks tomorrow (6am-6pm) if she takes mirtazapine tonight as she self-identifies this as a reward 08/21/2025: -Continue current medications and tx plan 08/20/2025: -Continue current medications and tx plan 08/19/2025: -Start mirtazapine 15mg HS -Start propranolol 10mg TID scheduled 08/18/2025: -Increase fluoxetine to 20mg daily -Ativan 1mg BID po prn for panic attacks 08/17/25: Utilize CBT, and encouraged patient to identify coping skills to try out. Continuing to encourage as needed use. Giving more time on Prozac. Also ordered labs to rule out other causes of hypertension and tachycardia, which are occurring intermittently. 08/16/25: continue current treatment and medications, and give more time. 08/15/25: The patient was admitted to the [facility] ([facility] mental health unit) on q15 min checks (behavioral with suicide precautions) for safety. The patient will participate in group, recreational, and milieu therapies and will be offered additional individual and family sessions as clinically appropriate. Meds started: Prozac 10mg in AM propranolol 10mg TID PRN anxiety (hold if SBP<100) Home meds continued: none Hospital medicine consult - they ordered CT chest to r/o PE. Inventory Assets Strengths: help seeking Needs: outpatient providers, caregiver support Suicide Risk Level Suicide Risk Level: Moderate (q15 min suicide checks) (high level of distress, acute and chronic SI, now with intense panic attacks with hx of multiple suicide attempts and hospitalizations in the past. Does deny recent intent or plan. Does report she feels safe on the unit and can reach out to staff if SI worsens or if she feels unsafe) Suicide Risk Level Comments: Risk Factors Assessment Male: No : Yes Do You Have Access To A Gun?: No Health Problems: Yes Mental Health Diagnoses: Yes Substance Use Disorders: No Previous Attempt: Yes Family History of Suicide: No Previous Psychiatric Hospitalization: Yes Hopelessness: Yes Protective Factors Assessment : No Responsible for Young Children: Yes (son is a minor, but now in [employer] custody) Employed: Yes Supportive Family: No Interval History Identifying Information PRASHANT SCHMIDT is a 35-year-old F who currently lives in at home with her 17 y/o son, has a history of depression and anxiety, and was admitted on 08/14/25 23:45 on a 201 voluntary commitment for SI without plan or intent, in the setting of daily panic attacks over the past two weeks, and medication nonadherence over the past 2 years. Diagnostically consistent with severe panic disorder and MDDR, severe. BPD also a possibility. Chief Complaint "I had a rough night". Review of Systems Sleep Information Total Hours of Sleep: 3 Meal Information Percent Meal Consumed - Breakfast: 75 Percent Meal Consumed - Lunch: 100 Percent Meal Consumed - Dinner: 100 Subjective Subjective Patient was seen & assessed and interval progress reviewed with treatment team per report: needed prompt to clean up belongings, but followed rest of behavioral plan mild panic episode last evening - asked for BP and HR to be checked, mildly elevated declined PRN medications poor sleep attending programming engages with a preferred peer met with STACY MEYERS yesterday in AM was "hopefully optimistic", then later rated mood 2-3/10 and "headache and pain" I met with the patient privately in her room. Reports she had a panic attack yesterday evening, and is now struggling with feeling discouraged. "I'm trying not to think negatively." Discussed ways she is challenging her own negative thoughts, by reminding herself "it doesn't mean I'm not progressing". Denies SI. Anxiety higher today. Mood low. No physical complaints. Physical Exam Psychiatric Orientation: alert and oriented x 3 Apperance: appropriately dressed and appropriately groomed Eye Contact: good eye contact Motor Behavior: steady gait and station and no abnormal motor movements Speech: normal rate/rhythm/volume of speech Affect: + depressed affect, + anxious affect (brief brightening at times), + constricted affect and mood congruent with affect Mood: + depressed mood and + anxious mood Thought Process: goal directed thought process, linear/logical thought process, clear/coherent thought process, + perseveration and thought association intact Thought Content: + preoccupation, + cognitive distortions and reality based without delusions Suicidal Thoughts: denies suicidal thoughts, denies suicidal plan and denies suicidal intent Homicidal Thoughts: denies homicidal thoughts, denies homicidal plan and denies homicidal intent Hallucinations: no auditory hallucinations and no visual hallucinations Cognition: recent memory grossly intact, remote memory grossly intact, attention grossly intact and language grossly intact Estimated Intelligence: average estimated intelligence and consistent with education level Insight: + limited insight and + fair insight Judgment: + limited judgement, + poor judgement and + fair judgement Vital Signs (Past 24 Hours) Last Vital Signs Temp 36.9 C 08/29/25 06:31 Pulse 123 H 08/29/25 06:32 Resp 18 08/29/25 06:31 BP 119/76 08/29/25 06:32 Pulse Ox 98 08/24/25 19:30 O2 Del Method Room Air 08/24/25 19:30 Results & Data ([facility]) Current Inpatient Medications Current Inpatient Medications: Current Inpatient Medications Acetaminophen (Acetaminophen 325 Mg Tab) 650 mg PO Q4H PRN PRN Reason: Headache or Minor Fever Stop: 09/13/25 23:49 Al Hydrox/Mg Hydrox/Simethicone (Aluminum/Magnesium Susp 30 Ml Udc) 30 ml PO Q4H PRN PRN Reason: GI Upset Stop: 09/13/25 23:49 Bismuth Subsalicylate (Bismuth Subsalicylate 262 Mg Chew) 2 tab PO Q30M PRN PRN Reason: Loose Stool/Diarrhea Stop: 09/13/25 23:49 Lorazepam (Lorazepam 1 Mg Tab) 1 mg PO BID PRN PRN Reason: Anxiety Stop: 09/15/25 19:39 Last Admin: 08/20/25 17:15 Dose: 1 mg Magnesium Hydroxide (Magnesium Hydroxide Susp 30 Ml Udc) 30 ml PO DAILY PRN PRN Reason: Constipation Stop: 09/13/25 23:49 Mirtazapine (Mirtazapine Tab 15 Mg Tab) 15 mg PO HS EDIE Stop: 09/18/25 21:59 Last Admin: 08/28/25 21:56 Dose: Not Given Mirtazapine (Mirtazapine Tab 15 Mg Tab) 15 mg PO HS PRN PRN Reason: insomnia Stop: 09/21/25 21:59 Propranolol HCl (Propranolol Hcl 10 Mg Tab) 10 mg PO TID PRN PRN Reason: Anxiety Stop: 09/18/25 11:29 Sertraline HCl (Sertraline Hcl 50 Mg Tablet) 50 mg PO QAM EDIE Stop: 09/26/25 08:59 Last Admin: 08/29/25 08:45 Dose: 50 mg Sodium Chloride (Sodium Chloride 0.65% Na Soln 45 Ml ([place])) 1 - 2 sprays NA PRN PRN PRN Reason: Nasal Dryness/Congestion Stop: 09/13/25 23:49 Mental Health & Subst Abuse Tx Psychiatrist Name of Psychiatrist: Cristina Self Psychiatrist's Date Of Appointment With Psychiatric Provider: 11/02/25 Time of Appointment with Psychiatrist: 2:50p Psychiatric Appointment Comment: [address] [facility] [address], [place] [address] Therapist Name of Therapist: Maggi (Intake) - In person Therapist's Date of Therapist Appointment: 09/18/25 Time of Therapist Appointment: 3:30PM arrival, 4PM appt Therapy Appointment Comment: [address], [address], [place] [address] Lacemaker Name of Lacemaker: Aislinn Hawkins Phone Number for Lacemaker: [phone] Case Management Appointment Comment: [facility] [phone] Post Discharge Appointments Primary Care Physician Name Of Family Doctor/PCP: Dr. Pandey ([facility] [place]) [address] , [place], [place] [address] Primary Care Date of Future Appointment with PCP: 09/10/25 Time of Appointment with PCP: 2pm Provider Appointment Comment: Appt scheduled for med managment and PCP notified to refer for mammogram Contact Information Discharge Discharge Address: [facility] [address] [place] [address]
--- NOTE | 2025-08-30 08:53 | Psychiatric Progress Note ---
Date of Service August 30, 2025 Impression / Recommendations Impression PRASHANT SCHMIDT is a 35-year-old F who currently lives in at home with her 17 y/o son, has a history of depression and anxiety, and was admitted on 08/14/25 23:45 on a 201 voluntary commitment for SI without plan or intent, in the setting of daily panic attacks over the past two weeks, and medication nonadherence over the past 2 years. Diagnostically consistent with severe panic disorder and MDDR, severe. BPD also a possibility. Discussed at length the pharmacologic options for treatment, including primarily returning to Zoloft (if pt is willing to tolerate possible weight gain, trying a different SSRI such as Prozac (which is typically weight neutral), or switching to SNRI class (like Cymbalta). Reviewed R/B of all options. Pt stated she wanted to consider and did not want to decide until the end of the day. I met with her a second time, and she wanted to try Prozac. A: Increase zoloft to 75mg to target ongoing anxiety. Continue to encourage and support pt's efforts at coping and self-regulation. MNPR due to intense anxiety and psychic distress, poor boundaries at times, periods of dysregulated behaviors Overall, I spent a total of 27 minutes on this case including meeting with the patient, reviewing the chart, nursing report, multidisciplinary team meeting, orders, and documentation. (1) Panic disorder: (2) Major depressive disorder, recurrent severe without psychotic features: (3) Superficial thrombophlebitis of left leg: (4) Non-adherence to medical treatment: Plan 08/30/25: -Increase Zoloft to 75mg daily. 08/29/25: -Continue current meds and treatment. 08/28/25: -continue current meds and treatment. -Gave pt YBOCS to complete 08/27/25: -continue current treatment and meds -behavioral plan reviewed in treatment team, and nursing will discuss with patient today -if no escalation of behaviors in the next day, might return to regular linens tomorrow. 08/26/25: - increase Zoloft to 50 mg daily - encouraged use of propranolol, which is now PRN - continue to encourage Remeron for sleep which patient declines - continue safety linens. She should have only 1 outfit at a time. - Staff is working on a behavioral plan, which we will review at treatment team tomorrow. 08/25/25: - Continue current medications, encourage patient to utilize the medicines that are available to her. - Encouraged active coping by participating in self-directed activities, rather than isolating/being sedentary (which tends to lead to excessive rumination). - Continue safety linens. She can have 1 outfit at a time to minimize risk. Continues on normal tray. 08/24/2025: -Return to normal clothes, continue with safety linens -Consider further titration of sertraline in next 1-2 days once she is agreeable to this -Ongoing encouragement to try mirtazapine or other sleep medication 08/23/2025: -Continue current medications -Safety linens, paper scrubs -Can continue with normal diet tray as she turns in her silverware and eats in the dining area in front of staff 08/22/2025: -Discontinue fluoxetine -Start sertraline 25mg daily tomorrow -Working on exposure ladder/reward menu for anxious components of treatment -12 hours of vital sign checks tomorrow (6am-6pm) if she takes mirtazapine tonight as she self-identifies this as a reward 08/21/2025: -Continue current medications and tx plan 08/20/2025: -Continue current medications and tx plan 08/19/2025: -Start mirtazapine 15mg HS -Start propranolol 10mg TID scheduled 08/18/2025: -Increase fluoxetine to 20mg daily -Ativan 1mg BID po prn for panic attacks 08/17/25: Utilize CBT, and encouraged patient to identify coping skills to try out. Continuing to encourage as needed use. Giving more time on Prozac. Also ordered labs to rule out other causes of hypertension and tachycardia, which are occurring intermittently. 08/16/25: continue current treatment and medications, and give more time. 08/15/25: The patient was admitted to the [facility] ([facility] mental health unit) on q15 min checks (behavioral with suicide precautions) for safety. The patient will participate in group, recreational, and milieu therapies and will be o ffered additional individual and family sessions as clinically appropriate. Meds started: Prozac 10mg in AM propranolol 10mg TID PRN anxiety (hold if SBP<100) Home meds continued: none Hospital medicine consult - they ordered CT chest to r/o PE. Inventory Assets Strengths: help seeking Needs: outpatient providers, caregiver support Suicide Risk Level Suicide Risk Level: Moderate (q15 min suicide checks) (high level of distress, acute and chronic SI, now with intense panic attacks with hx of multiple suicide attempts and hospitalizations in the past. Does deny recent intent or plan. Does report she feels safe on the unit and can reach out to staff if SI worsens or if she feels unsafe) Suicide Risk Level Comments: Risk Factors Assessment Male: No : Yes Do You Have Access To A Gun?: No Health Problems: Yes Mental Health Diagnoses: Yes Substance Use Disorders: No Previous Attempt: Yes Family History of Suicide: No Previous Psychiatric Hospitalization: Yes Hopelessness: Yes Protective Factors Assessment : No Responsible for Young Children: Yes (son is a minor, but now in CYS custody) Employed: Yes Supportive Family: No Interval History Identifying Information PRASHANT SCHMIDT is a 35-year-old F who currently lives in at home with her 17 y/o son, has a history of depression and anxiety, and was admitted on 08/14/25 23:45 on a 201 voluntary commitment for SI without plan or intent, in the setting of daily panic attacks over the past two weeks, and medication mir dherence over the past 2 years. Diagnostically consistent with severe panic disorder and MDDR, severe. BPD also a possibility. Chief Complaint "I was anxious in the morning as usual, but I guess I'm OK for now". Review of Systems Sleep Information Total Hours of Sleep: 4 Meal Information Percent Meal Consumed - Breakfast: 50 Percent Meal Consumed - Lunch: 50 Percent Meal Consumed - Dinner: 10 Subjective Subjective Patient was seen & assessed and interval progress reviewed with nursing and social work per report: slept 4hr, some DFA. then went back to sleep after breakfast continues to refuse remeron out of room, attending groups behavioral plan going well voiced worry about a heart attack - able to use coping skills mood 12/04 and "anxious" I met with the pt privately in her room. She said she was happy with her BP and HR this AM. She inquired about increasing zoloft to 75mg before discharge. I recommended starting the change tomorrow AM, which made her nervous. She asked questions about dosing and possible AEs several times. She did attempt to reassure herself at times, reminding herself she tolerated this dose in the past, and needed higher doses for full benefit. She continues to deny SI. Discussed discharge estimate - likely early next week. Listed her supports, and outpatient follow up. She's considering returning to the workforce eventually. Physical Exam Psychiatric Orientation: alert and oriented x 3 Apperance: appropriately dressed, appropriately groomed and appeared stated age Eye Contact: + fair eye contact Motor Behavior: steady gait and station and no abnormal motor movements Speech: normal rate/rhythm/volume of speech Affect: + constricted affect and mood congruent with affect Mood: + anxious mood Thought Process: goal directed thought process, linear/logical thought process, clear/coherent thought process, + perseveration and thought association intact Thought Content: + preoccupation, + cognitive distortions and reality based without delusions Suicidal Thoughts: denies suicidal thoughts, denies suicidal plan and denies suicidal intent Homicidal Thoughts: denies homicidal thoughts, denies homicidal plan and denies homicidal intent Hallucinations: no auditory hallucinations and no visual hallucinations Cognition: recent memory grossly intact, remote memory grossly intact, attention grossly intact and language grossly intact Estimated Intelligence: average estimated intelligence and consistent with education level Insight: + fair insight Judgment: + fair judgement Vital Signs (Past 24 Hours) Last Vital Signs Temp 37 C 08/30/25 06:28 Pulse 86 08/30/25 06:28 Resp 16 08/30/25 06:28 BP 126/85 08/30/25 06:28 Pulse Ox 98 08/24/25 19:30 O2 Del Method Room Air 08/24/25 19:30 Results & Data ([facility]) Current Inpatient Medications Current Inpatient Medications: Current Inpatient Medications Acetaminophen (Acetaminophen 325 Mg Tab) 650 mg PO Q4H PRN PRN Reason: Headache or Minor Fever Stop: 09/13/25 23:49 Al Hydrox/Mg Hydrox/Simethicone (Aluminum/Magnesium Susp 30 Ml Udc) 30 ml PO Q4H PRN PRN Reason: GI Upset Stop: 09/13/25 23:49 Bismuth Subsalicylate (Bismuth Subsalicylate 262 Mg Chew) 2 tab PO Q30M PRN PRN Reason: Loose Stool/Diarrhea Stop: 09/13/25 23:49 Lorazepam (Lorazepam 1 Mg Tab) 1 mg PO BID PRN PRN Reason: Anxiety Stop: 09/15/25 19:39 Last Admin: 08/20/25 17:15 Dose: 1 mg Magnesium Hydroxide (Magnesium Hydroxide Susp 30 Ml Udc) 30 ml PO DAILY PRN PRN Reason: Constipation Stop: 09/13/25 23:49 Mirtazapine (Mirtazapine Tab 15 Mg Tab) 15 mg PO HS EDIE Stop: 09/18/25 21:59 Last Admin: 08/29/25 21:29 Dose: Not Given Mirtazapine (Mirtazapine Tab 15 Mg Tab) 15 mg PO HS PRN PRN Reason: insomnia Stop: 09/21/25 21:59 Propranolol HCl (Propranolol Hcl 10 Mg Tab) 10 mg PO TID PRN PRN Reason: Anxiety Stop: 09/18/25 11:29 Sertraline HCl (Sertraline Hcl 50 Mg Tablet) 50 mg PO QAM EDIE Stop: 09/26/25 08:59 Last Admin: 08/29/25 08:45 Dose: 50 mg Sodium Chloride (Sodium Chloride 0.65% Na Soln 45 Ml ([place])) 1 - 2 sprays NA PRN PRN PRN Reason: Nasal Dryness/Congestion Stop: 09/13/25 23:49 Mental Health & Subst Abuse Tx Psychiatrist Name of Psychiatrist: Cristina Self Psychiatrist's Date Of Appointment With Psychiatric Provider: 11/02/25 Time of Appointment with Psychiatrist: 2:50p Psychiatric Appointment Comment: [address] [facility] [address], [place] [address] Therapist Name of Therapist: Maggi (Intake) - In person Therapist's Date of Therapist Appointment: 09/18/25 Time of Therapist Appointment: 3:30PM arrival, 4PM appt Therapy Appointment Comment: [address], [address], [place] [address] Trauma Registrar Name of Trauma Registrar: Aislinn Hawkins Phone Number for Trauma Registrar: [phone] Case Management Appointment Comment: [facility] [phone] Post Discharge Appointments Primary Care Physician Name Of Family Doctor/PCP: Dr. Pandey ([facility]) [address] [place], [place] [address] [address] Primary Care Date of Future Appointment with PCP: 09/10/25 Time of Appointment with PCP: 2pm Provider Appointment Comment: Appt scheduled for med managment and PCP notified to refer for mammogram Contact Information Discharge Discharge Address: [address] [place] [address] Angela Valencia [address] [place], [place] [address] [address]
--- NOTE | 2025-08-31 08:42 | Psychiatric Progress Note ---
Date of Service August 31, 2025 Impression / Recommendations Impression PRASHANT SCHMIDT is a 35-year-old F who currently lives in at home with her 17 y/o son, has a history of depression and anxiety, and was admitted on 08/14/25 23:45 on a 201 voluntary commitment for SI without plan or intent, in the setting of daily panic attacks over the past two weeks, and medication nonadherence over the past 2 years. Diagnostically consistent with severe panic disorder and MDDR, severe. BPD also a possibility. Discussed at length the pharmacologic options for treatment, including primarily returning to Zoloft (if pt is willing to tolerate possible weight gain, trying a different SSRI such as Prozac (which is typically weight neutral), or switching to SNRI class (like Cymbalta). Reviewed R/B of all options. Pt stated she wanted to consider and did not want to decide until the end of the day. I met with her a second time, and she wanted to try Prozac. A: Some challenging emotions today, with learning of her son's skilled nursing determination. Able to work through the stress and cope well. No SI. Continuing to discuss discharge early next week. MNPR due to intense anxiety and psychic distress, poor boundaries at times, periods of dysregulated behaviors Overall, I spent a total of 37 minutes on this case including meeting with the patient, reviewing the chart, nursing report, multidisciplinary team meeting, orders, and documentation. (1) Panic disorder: (2) Major depressive disorder, recurrent severe without psychotic features: (3) Superficial thrombophlebitis of left leg: (4) Non-adherence to medical treatment: Plan 08/31/25: - Continue current meds and treatment 08/30/25: -Increase Zoloft to 75mg daily. 08/29/25: -Continue current meds and treatment. 08/28/25: -continue current meds and treatment. -Gave pt YBOCS to complete 08/27/25: -continue current treatment and meds -behavioral plan reviewed in treatment team, and nursing will discuss with patient today -if no escalation of behaviors in the next day, might return to regular linens tomorrow. 08/26/25: - increase Zoloft to 50 mg daily - encouraged use of propranolol, which is now PRN - continue to encourage Remeron for sleep which patient declines - continue safety linens. She should have only 1 outfit at a time. - Staff is working on a behavioral plan, which we will review at treatment team tomorrow. 08/25/25: - Continue current medications, encourage patient to utilize the medicines that are available to her. - Encouraged active coping by participating in self-directed activities, rather than isolating/being sedentary (which tends to lead to excessive rumination). - Continue safety linens. She can have 1 outfit at a time to minimize risk. Continues on normal tray. 08/24/2025: -Return to normal clothes, continue with safety linens -Consider further titration of sertraline in next 1-2 days once she is agreeable to this -Ongoing encouragement to try mirtazapine or other sleep medication 08/23/2025: -Continue current medications -Safety linens, paper scrubs -Can continue with normal diet tray as she turns in her silverware and eats in the dining area in front of staff 08/22/2025: -Discontinue fluoxetine -Start sertraline 25mg daily tomorrow -Working on exposure ladder/reward menu for anxious components of treatment -12 hours of vital sign checks tomorrow (6am-6pm) if she takes mirtazapine tonight as she self-identifies this as a reward 08/21/2025: -Continue current medications and tx plan 08/20/2025: -Continue current medications and tx plan 08/19/2025: -Start mirtazapine 15mg HS -Start propranolol 10mg TID scheduled 08/18/2025: -Increase fluoxetine to 20mg daily -Ativan 1mg BID po prn for panic attacks 08/17/25: Utilize CBT, and encouraged patient to identify coping skills to try out. Continuing to encourage as needed use. Giving more time on Prozac. Also ordered labs to rule out other causes of hypertension and tachycardia, which are occurring intermittently. 08/16/25: continue current treatment and medications, and give more time. 08/15/25: The patient was admitted to the [facility] ([facility] mental health unit) on q15 min checks (behavioral with suicide precautions) for safety. The patient will participate in group, recreational, and milieu therapies and will be offered additional individual and family sessions as clinically appropriate. Meds started: Prozac 10mg in AM propranolol 10mg TID PRN anxiety (hold if SBP<100) Home meds continued: none Hospital medicine consult - they ordered CT chest to r/o PE. Inventory Assets Strengths: help seeking Needs: outpatient providers, caregiver support Suicide Risk Level Suicide Risk Level: Moderate (q15 min suicide checks) (high level of distress, acute and chronic SI, now with intense panic attacks with hx of multiple suicide attempts and hospitalizations in the past. Does deny recent intent or plan. Does report she feels safe on the unit and can reach out to staff if SI worsens or if she feels unsafe) Suicide Risk Level Comments: Risk Factors Assessment Male: No : Yes Do You Have Access To A Gun?: No Health Problems: Yes Mental Health Diagnoses: Yes Substance Use Disorders: No Previous Attempt: Yes Family History of Suicide: No Previous Psychiatric Hospitalization: Yes Hopelessness: Yes Protective Factors Assessment : No Responsible for Young Children: Yes (son is a minor, but now in [employer] custody) Employed: Yes Supportive Family: No Interval History Identifying Information PRASHANT SCHMIDT is a 35-year-old F who currently lives in at home with her 17 y/o son, has a history of depression and anxiety, and was admitted on 08/14/25 23:45 on a 201 voluntary commitment for SI without plan or intent, in the setting of daily panic attacks over the past two weeks, and medication nonadherence over the past 2 years. Diagnostically consistent with severe panic disorder and MDDR, severe. BPD also a possibility. Chief Complaint " I was upset earlier". Review of Systems Sleep Information Total Hours of Sleep: 6.5 Meal Information Percent Meal Consumed - Breakfast: 100 Percent Meal Consumed - Lunch: 50 Percent Meal Consumed - Dinner: 10 Subjective Subjective Patient was seen & assessed and interval progress reviewed with treatment team per report: continues to refuse HS remeron goes to groups rated mood 3.5-4/10, feeling "OK" slept 6.5 hours I met the patient privately in her room this afternoon. She reported she was upset earlier, when she learned they found a skilled nursing for her son. That skilled nursing is located 50 minutes away. She wants to be able to see him at least twice a week if not more, but does not currently have a car. She is also struggling with feelings of guilt for having referred him to the skilled nursing. Able to reflect on if being for his best interest. "I am not healthy enough to give him the care he needs." She says she is coping by "trying to keep my mind busy." She denies suicidal ideation here. She says she is worried about having it at home when she is alone. Discussed her safety plan, coping skills and warning signs. Tolerating the increased Zoloft with no side effects today. Physical Exam Psychiatric Orientation: alert and oriented x 3 Apperance: appropriately dressed and appropriately groomed Eye Contact: good eye contact Motor Behavior: steady gait and station and no abnormal motor movements Speech: normal rate/rhythm/volume of speech Affect: + anxious affect (brief brightening at times) and mood congruent with affect Mood: + anxious mood Thought Process: goal directed thought process, linear/logical thought process, clear/coherent thought process, + perseveration and thought association intact Thought Content: + cognitive distortions and reality based without delusions Suicidal Thoughts: denies suicidal thoughts, denies suicidal plan and denies suicidal intent Homicidal Thoughts: denies homicidal thoughts, denies homicidal plan and denies homicidal intent Hallucinations: no auditory hallucinations and no visual hallucinations Cognition: recent memory grossly intact, remote memory grossly intact, attention grossly intact and language grossly intact Estimated Intelligence: average estimated intelligence Insight: + fair insight Judgment: + fair judgement Vital Signs (Past 24 Hours) Last Vital Signs Temp 36.8 C 08/31/25 06:23 Pulse 122 H 08/31/25 06:24 Resp 16 08/31/25 06:23 BP 108/72 08/31/25 06:24 Pulse Ox 98 08/24/25 19:30 O2 Del Method Room Air 08/24/25 19:30 A physical exam was performed in the ED by Dr. Marquez Martinez for the purposes of medical clearance. I accept that physical as correct and adequate for the purposes of the inpatient physical exam. Results & Data (U) Current Inpatient Medications Current Inpatient Medications: Current Inpatient Medications Acetaminophen (Acetaminophen 325 Mg Tab) 650 mg PO Q4H PRN PRN Reason: Headache or Minor Fever Stop: 09/13/25 23:49 Al Hydrox/Mg Hydrox/Simethicone (Aluminum/Magnesium Susp 30 Ml Udc) 30 ml PO Q4H PRN PRN Reason: GI Upset Stop: 09/13/25 23:49 Bismuth Subsalicylate (Bismuth Subsalicylate 262 Mg Chew) 2 tab PO Q30M PRN PRN Reason: Loose Stool/Diarrhea Stop: 09/13/25 23:49 Lorazepam (Lorazepam 1 Mg Tab) 1 mg PO BID PRN PRN Reason: Anxiety Stop: 09/15/25 19:39 Last Admin: 08/20/25 17:15 Dose: 1 mg Magnesium Hydroxide (Magnesium Hydroxide Susp 30 Ml Udc) 30 ml PO DAILY PRN PRN Reason: Constipation Stop: 09/13/25 23:49 Mirtazapine (Mirtazapine Tab 15 Mg Tab) 15 mg PO HS EDIE Stop: 09/18/25 21:59 Last Admin: 08/30/25 21:15 Dose: Not Given Mirtazapine (Mirtazapine Tab 15 Mg Tab) 15 mg PO HS PRN PRN Reason: insomnia Stop: 09/21/25 21:59 Propranolol HCl (Propranolol Hcl 10 Mg Tab) 10 mg PO TID PRN PRN Reason: Anxiety Stop: 09/18/25 11:29 Sertraline HCl (Sertraline Hcl 50 Mg Tablet) 75 mg PO QAM EDIE Stop: 09/30/25 08:59 Sodium Chloride (Sodium Chloride 0.65% Na Soln 45 Ml ([place])) 1 - 2 sprays NA PRN PRN PRN Reason: Nasal Dryness/Congestion Stop: 09/13/25 23:49 Mental Health & Subst Abuse Tx Psychiatrist Name of Psychiatrist: Cristina Self Psychiatrist's Date Of Appointment With Psychiatric Provider: 11/02/25 Time of Appointment with Psychiatrist: 2:50p Psychiatric Appointment Comment: [address] [facility] [address], [place] [address] Therapist Name of Therapist: Maggi (Intake) - In person Therapist's Date of Therapist Appointment: 09/18/25 Time of Therapist Appointment: 3:30PM arrival, 4PM appt Therapy Appointment Comment: [address], [address], [place] [address] Curtain Mender Name of Curtain Mender: Aislinn Hawkins Phone Number for Curtain Mender: [phone] Case Management Appointment Comment: [facility] [phone] Post Discharge Appointments Primary Care Physician Name Of Family Doctor/PCP: Dr. Pandey ([facility] [place]) [address], [place] [address] Primary Care Date of Future Appointment with PCP: 09/10/25 Time of Appointment with PCP: 2pm Provider Appointment Comment: Appt scheduled for med managment and PCP notified to refer for mammogram Partial or Psych Rehab Name of Partial or Psych Rehab: [facility] (extended outpatient program- starts in October 2025) Phone Number of Partial or Psych Rehab: [phone] Partial or Psych Rehab Appointment Comment: They will email intake forms for [facility] program [email or web address]. Contact Information Discharge Discharge Address: [facility] [address] [facility] [address] [place] [address]
[2025-08-31] MEDS: SERTRALINE HCL 50 MG TABLET PO SCH (09:36)
--- NOTE | 2025-09-01 10:17 | Psychiatric Progress Note ---
Date of Service September 01, 2025 Impression / Recommendations Impression PRASHANT SCHMIDT is a 35-year-old F who currently lives in at home with her 17 y/o son, has a history of depression and anxiety, and was admitted on 08/14/25 23:45 on a 201 voluntary commitment for SI without plan or intent, in the setting of daily panic attacks over the past two weeks, and medication nonadherence over the past 2 years. Diagnostically consistent with severe panic disorder and MDDR, severe. BPD also a possibility. Discussed at length the pharmacologic options for treatment, including primarily returning to Zoloft (if pt is willing to tolerate possible weight gain, trying a different SSRI such as Prozac (which is typically weight neutral), or switching to SNRI class (like Cymbalta). Reviewed R/B of all options. Pt stated she wanted to consider and did not want to decide until the end of the day. I met with her a second time, and she wanted to try Prozac. A: Ongoing anxiety but she is able to reflect that her panic attacks are lessening. She continues to struggle somewhat with sleep but declines options for medications for this, we reviewed mirtazapine as well as other pharmacologic options and non-pharmacologic sleep hygiene strategies. Encouragingly continues to deny SI. She is tolerating sertraline well and likes this medication. Continued to process mixed emotions she has about her son's penitentiary placement but overall she reflects that this was a long-term goal. MNPR due to history of poor boundaries at times, periods of dysregulated behaviors when anxious Overall, I spent a total of 50 minutes on this case including meeting with the patient, reviewing the chart, nursing report, multidisciplinary team meeting, orders, and documentation. (1) Panic disorder: (2) Major depressive disorder, recurrent severe without psychotic features: (3) Superficial thrombophlebitis of left leg: (4) Non-adherence to medical treatment: Plan 09/01/2025: -Continue current medications and tx plan -Change mirtazapine from 15mg HS scheduled to 15mg prn for insomnia 08/31/25: - Continue current meds and treatment 08/30/25: -Increase Zoloft to 75mg daily. 08/29/25: -Continue current meds and treatment. 08/28/25: -continue current meds and treatment. -Gave pt YBOCS to complete 08/27/25: -continue current treatment and meds -behavioral plan reviewed in treatment team, and nursing will discuss with patient today -if no escalation of behaviors in the next day, might return to regular linens tomorrow. 08/26/25: - increase Zoloft to 50 mg daily - encouraged use of propranolol, which is now PRN - continue to encourage Remeron for sleep which patient declines - continue safety linens. She should have only 1 outfit at a time. - Staff is working on a behavioral plan, which we will review at treatment team tomorrow. 08/25/25: - Continue current medications, encourage patient to utilize the medicines that are available to her. - Encouraged active coping by participating in self-directed activities, rather than isolating/being sedentary (which tends to lead to excessive rumination). - Continue safety linens. She can have 1 outfit at a time to minimize risk. Continues on normal tray. 08/24/2025: -Return to normal clothes, continue with safety linens -Consider further titration of sertraline in next 1-2 days once she is agreeable to this -Ongoing encouragement to try mirtazapine or other sleep medication 08/23/2025: -Continue current medications -Safety linens, paper scrubs -Can continue with normal diet tray as she turns in her silverware and eats in the dining area in front of staff 08/22/2025: -Discontinue fluoxetine -Start sertraline 25mg daily tomorrow -Working on exposure ladder/reward menu for anxious components of treatment -12 hours of vital sign checks tomorrow (6am-6pm) if she takes mirtazapine tonight as she self-identifies this as a reward 08/21/2025: -Continue current medications and tx plan 08/20/2025: -Continue current medications and tx plan 08/19/2025: -Start mirtazapine 15mg HS -Start propranolol 10mg TID scheduled 08/18/2025: -Increase fluoxetine to 20mg daily -Ativan 1mg BID po prn for panic attacks 08/17/25: Utilize CBT, and encouraged patient to identify coping skills to try out. Continuing to encourage as needed use. Giving more time on Prozac. Also ordered labs to rule out other causes of hypertension and tachycardia, which are occurring intermittently. 08/16/25: continue current treatment and medications, and give more time. 08/15/25: The patient was admitted to the [facility] ([facility] health unit) on q15 min checks (behavioral with suicide precautions) for safety. The patient will participate in group, recreational, and milieu therapies and will be offered additional individual and family sessions as clinically appropriate. Meds started: Prozac 10mg in AM propranolol 10mg TID PRN anxiety (hold if SBP<100) Home meds continued: none Hospital medicine consult - they ordered CT chest to r/o PE. Inventory Assets Strengths: help seeking Needs: outpatient providers, caregiver support Suicide Risk Level Suicide Risk Level: Moderate (q15 min suicide checks) (high level of distress with panic attacks and SI prior to admission and during her initial hospitalization but now reports improving mood, lessening of anxiety and more future-focused. She denies SI, feels safe on the unit and feels able to reach out to staff for support) Suicide Risk Level Comments: Risk Factors Assessment Male: No : Yes Do You Have Access To A Gun?: No Health Problems: Yes Mental Health Diagnoses: Yes Substance Use Disorders: No Previous Attempt: Yes Family History of Suicide: No Previous Psychiatric Hospitalization: Yes Hopelessness: Yes Protective Factors Assessment : No Responsible for Young Children: Yes (son is a minor, but now in [facility] custody) Employed: Yes Supportive Family: No Interval History Identifying Information PRASHANT SCHMIDT is a 35-year-old F who currently lives in at home with her 17 y/o son, has a history of depression and anxiety, and was admitted on 08/14/25 23:45 on a 201 voluntary commitment for SI without plan or intent, in the setting of daily panic attacks over the past two weeks, and medication nonadherence over the past 2 years. Diagnostically consistent with severe panic disorder and MDDR, severe. BPD also a possibility. Chief Complaint "I have good moments and bad moments". Review of Systems Sleep Information Total Hours of Sleep: 6 Meal Information Percent Meal Consumed - Breakfast: 65 Percent Meal Consumed - Lunch: 90 Percent Meal Consumed - Dinner: 0 Nutrition Comment: Subjective Subjective Patient was seen & assessed and interval progress reviewed with nursing and social work. Fewer panic attacks but continues to have somatic concerns including back pain, fears of asthma and requesting pulse ox be checked. Today mid-morning she reports decreasing anxiety and doesn't identify any somatic concerns. She continues to tolerate sertraline and feels good about the titration. She doesn't want to increase the dose again yet. She denies any SI. Feels that "the panic attacks are lessening". Reports some sadness that her son will now be living in a penitentiary but also reflects that "this was his long- term goal" so she feels positive about that. She wishes she was able to ensure he had all of his stuff when he first arrived there but plans to write out a list of some of his favorite foods and other needs that she can then provide to the penitentiary. She reflects on future goals of getting a job and a car and pote ntially eventually moving to be closer to her son's new penitentiary eventually. She prefers to change the mirtazapine to as needed since she's not interested in taking it at bedtime and prefers to just have the sertraline despite some ongoing anxiety in the morning. Physical Exam Psychiatric Orientation: alert and oriented x 3 Apperance: appropriately dressed and appropriately groomed Eye Contact: good eye contact Motor Behavior: steady gait and station and no abnormal motor movements Speech: normal rate/rhythm/volume of speech Affect: + anxious affect (brightening at times) and mood congruent with affect Mood: + anxious mood; no depressed mood Thought Process: + circumstantial thought process Thought Content: + cognitive distortions and reality based without delusions Suicidal Thoughts: denies suicidal thoughts, denies suicidal plan and denies suicidal intent Homicidal Thoughts: denies homicidal thoughts, denies homicidal plan and denies homicidal intent Hallucinations: no auditory hallucinations and no visual hallucinations Cognition: recent memory grossly intact, remote memory grossly intact, attention grossly intact and language grossly intact Estimated Intelligence: average estimated intelligence Insight: + fair insight Judgment: + fair judgement Vital Signs (Past 24 Hours) Last Vital Signs Temp 36.4 C L 09/01/25 06:22 Pulse 99 H 09/01/25 06:23 Resp 16 09/01/25 06:22 BP 118/77 09/01/25 06:23 Pulse Ox 99 09/01/25 06:22 O2 Del Method Room Air 09/01/25 06:22 Results & Data ([facility]) Current Inpatient Medications Current Inpatient Medications: Current Inpatient Medications Acetaminophen (Acetaminophen 325 Mg Tab) 650 mg PO Q4H PRN PRN Reason: Headache or Minor Fever Stop: 09/13/25 23:49 Al Hydrox/Mg Hydrox/Simethicone (Aluminum/Magnesium Susp 30 Ml Udc) 30 ml PO Q4H PRN PRN Reason: GI Upset Stop: 09/13/25 23:49 Bismuth Subsalicylate (Bismuth Subsalicylate 262 Mg Chew) 2 tab PO Q30M PRN PRN Reason: Loose Stool/Diarrhea Stop: 09/13/25 23:49 Lorazepam (Lorazepam 1 Mg Tab) 1 mg PO BID PRN PRN Reason: Anxiety Stop: 09/15/25 19:39 Last Admin: 08/20/25 17:15 Dose: 1 mg Magnesium Hydroxide (Magnesium Hydroxide Susp 30 Ml Udc) 30 ml PO DAILY PRN PRN Reason: Constipation Stop: 09/13/25 23:49 Mirtazapine (Mirtazapine Tab 15 Mg Tab) 15 mg PO HS EDIE Stop: 09/18/25 21:59 Last Admin: 08/31/25 21:23 Dose: Not Given Mirtazapine (Mirtazapine Tab 15 Mg Tab) 15 mg PO HS PRN PRN Reason: insomnia Stop: 09/21/25 21:59 Propranolol HCl (Propranolol Hcl 10 Mg Tab) 10 mg PO TID PRN PRN Reason: Anxiety Stop: 09/18/25 11:29 Sertraline HCl (Sertraline Hcl 50 Mg Tablet) 75 mg PO QAM EDIE Stop: 09/30/25 08:59 Last Admin: 09/01/25 09:30 Dose: 75 mg Sodium Chloride (Sodium Chloride 0.65% Na Soln 45 Ml ([place])) 1 - 2 sprays NA PRN PRN PRN Reason: Nasal Dryness/Congestion Stop: 09/13/25 23:49 Mental Health & Subst Abuse Tx Psychiatrist Name of Psychiatrist: Cristina Self Psychiatrist's Date Of Appointment With Psychiatric Provider: 11/02/25 Time of Appointment with Psychiatrist: 2:50p Psychiatric Appointment Comment: [address] [facility] [address], [place] [address] Therapist Name of Therapist: Maggi ([place]) - In person Therapist's Date of Therapist Appointment: 09/18/25 Time of Therapist Appointment: 3:30PM arrival, 4PM appt Therapy Appointment Comment: [address], [address], [place] [address] [employer] Technician Name of [employer] Technician: Aislinn Hawkins Phone Number for [employer] Technician: [phone] Case Management Appointment Comment: Pam - [phone] Post Discharge Appointments Primary Care Physician Name Of Family Doctor/PCP: Dr. Pandey ([facility]) [address] [place], [place] [address]jonas , [place] [address] Primary Care Date of Future Appointment with PCP: 09/10/25 Time of Appointment with PCP: 2pm Provider Appointment Comment: Appt scheduled for med managment and PCP notified to refer for mammogram Partial or Psych Rehab Name of Partial or Psych Rehab: [facility] (extended outpatient program- starts in October 2025) Phone Number of Partial or Psych Rehab: [phone] Partial or Psych Rehab Appointment Comment: They will email intake forms for EOP program to [email or web address]. Contact Information Discharge Discharge Address: [address] [place] [address] Angela Bernard Johana R[place] [id number]
--- NOTE | 2025-09-02 09:40 | Psychiatric Progress Note ---
Date of Service September 02, 2025 Impression / Recommendations Impression PRASHANT SCHMIDT is a 35-year-old F who currently lives in at home with her 17 y/o son, has a history of depression and anxiety, and was admitted on 08/14/25 23:45 on a 201 voluntary commitment for SI without plan or intent, in the setting of daily panic attacks over the past two weeks, and medication nonadherence over the past 2 years. Diagnostically consistent with severe panic disorder and MDDR, severe. BPD also a possibility. Discussed at length the pharmacologic options for treatment, including primarily returning to Zoloft (if pt is willing to tolerate possible weight gain, trying a different SSRI such as Prozac (which is typically weight neutral), or switching to SNRI class (like Cymbalta). Reviewed R/B of all options. Pt stated she wanted to consider and did not want to decide until the end of the day. I met with her a second time, and she wanted to try Prozac. A: Ongoing anxiety but mood showing signs of gradual improvement, no recent panic attacks and improving insight. Sleep is significantly improving. Discussing logistics of discharge planning, need to work to set up some outpatient supports to help with transport for getting her medication and food. Continues to deny SI. She is tolerating sertraline well and likes this medication and prefers not to titrate further at this point. MNPR due to history of poor boundaries at times, periods of dysregulated behaviors when anxious Overall, I spent a total of 48 minutes on this case including meeting with the patient, reviewing the chart, nursing report, multidisciplinary team meeting, orders, and documentation. (1) Panic disorder: (2) Major depressive disorder, recurrent severe without psychotic features: (3) Superficial thrombophlebitis of left leg: (4) Non-adherence to medical treatment: Plan 09/02/2025: -Continue current medications and tx plan. 09/01/2025: -Continue current medications and tx plan -Change mirtazapine from 15mg HS scheduled to 15mg prn for insomnia 08/31/25: - Continue current meds and treatment 08/30/25: -Increase Zoloft to 75mg daily. 08/29/25: -Continue current meds and treatment. 08/28/25: -continue current meds and treatment. -Gave pt YBOCS to complete 08/27/25: -continue current treatment and meds -behavioral plan reviewed in treatment team, and nursing will discuss with patient today -if no escalation of behaviors in the next day, might return to regular linens tomorrow. 08/26/25: - increase Zoloft to 50 mg daily - encouraged use of propranolol, which is now PRN - continue to encourage Remeron for sleep which patient declines - continue safety linens. She should have only 1 outfit at a time. - Staff is working on a behavioral plan, which we will review at treatment team tomorrow. 08/25/25: - Continue current medications, encourage patient to utilize the medicines that are available to her. - Encouraged active coping by participating in self-directed activities, rather than isolating/being sedentary (which tends to lead to excessive rumination). - Continue safety linens. She can have 1 outfit at a time to minimize risk. Continues on normal tray. 08/24/2025: -Return to normal clothes, continue with safety linens -Consider further titration of sertraline in next 1-2 days once she is agreeable to this -Ongoing encouragement to try mirtazapine or other sleep medication 08/23/2025: -Continue current medications -Safety linens, paper scrubs -Can continue with normal diet tray as she turns in her silverware and eats in the dining area in front of staff 08/22/2025: -Discontinue fluoxetine -Start sertraline 25mg daily tomorrow -Working on exposure ladder/reward menu for anxious components of treatment -12 hours of vital sign checks tomorrow (6am-6pm) if she takes mirtazapine tonight as she self-identifies this as a reward 08/21/2025: -Continue current medications and tx plan 08/20/2025: -Continue current medications and tx plan 08/19/2025: -Start mirtazapine 15mg HS -Start propranolol 10mg TID scheduled 08/18/2025: -Increase fluoxetine to 20mg daily -Ativan 1mg BID po prn for panic attacks 08/17/25: Utilize CBT, and encouraged patient to identify coping skills to try out. Continuing to encourage as needed use. Giving more time on Prozac. Also ordered labs to rule out other causes of hypertension and tachycardia, which are occurring intermittently. 08/16/25: continue current treatment and medications, and give more time. 08/15/25: The patient was admitted to the [facility] ([facility]) on q15 min checks (behavioral with suicide precautions) for safety. The patient will participate in group, recreational, and milieu therapies and will be offered additional individual and family sessions as clinically appropriate. Meds started: Prozac 10mg in AM propranolol 10mg TID PRN anxiety (hold if SBP<100) Home meds continued: none Hospital medicine consult - they ordered CT chest to r/o PE. Inventory Assets Strengths: help seeking Needs: outpatient providers, caregiver support Suicide Risk Level Suicide Risk Level: Moderate (q15 min suicide checks) (high level of distress with panic attacks and SI prior to admission and during her initial hospitalization but now reports improving mood, lessening of anxiety and more future-focused. She denies SI, feels safe on the unit and feels able to reach out to staff for support) Suicide Risk Level Comments: Risk Factors Assessment Male: No : Yes Do You Have Access To A Gun?: No Health Problems: Yes Mental Health Diagnoses: Yes Substance Use Disorders: No Previous Attempt: Yes Family History of Suicide: No Previous Psychiatric Hospitalization: Yes Hopelessness: Yes Protective Factors Assessment : No Responsible for Young Children: Yes (son is a minor, but now in [facility] custody) Employed: Yes Supportive Family: No Interval History Identifying Information PRASHANT SCHMIDT is a 35-year-old F who currently lives in at home with her 17 y/o son, has a history of depression and anxiety, and was admitted on 08/14/25 23:45 on a 201 voluntary commitment for SI without plan or intent, in the setting of daily panic attacks over the past two weeks, and medication nonadherence over the past 2 years. Diagnostically consistent with severe panic disorder and MDDR, severe. BPD also a possibility. Chief Complaint "my anxiety is worse in the morning but it improves as the day goes on". Review of Systems Sleep Information Total Hours of Sleep: 7.45 Meal Information Percent Meal Consumed - Breakfast: 75 Percent Meal Consumed - Lunch: 100 Percent Meal Consumed - Dinner: 25 Subjective Subjective Patient was seen & assessed and interval progress reviewed with nursing and social work. Out of her room, attending groups. Spent about 2 hours playing a board game with a peer and laughing. She processed future goals with RN of wanting to work in a school program or daycare, plans for saving for her car and denied any panic attacks in the last two days. She rated her mood as "neutral". She slept for more than 7 hours last night. Today she reports relief at not having experienced a panic attack in three days. Ongoing anxiety but she is feeling better able to cope with this especially since she feels confident it will response to the sertraline. She declines further dose titration, would like to stay on 75mg for a week before going to 100mg daily. She denies SI. We reflect on ways she can cope at home if she feels sad or experiences guilt from not having her son at home. She reflects on difficulty of not knowing how he's been treated or if [facility]'s comfortable at the [facility] but also that she feels they'll be better able to provide experiences, opportunities to be with peers and access to resources she could not. She remains very motivated to work toward getting a car and starting a job and visiting her son on days she isn't working. She also looks forward to being his mom instead of feeling like his caregiver which is the role she'd increasingly felt. We discussed cognitive reframing if guilt or sadness emerges and validated normal emotions associated with this big transition including grief and fears of change. Physical Exam Psychiatric Orientation: alert and oriented x 3 Apperance: appropriately dressed and appropriately groomed Eye Contact: good eye contact Motor Behavior: steady gait and station and no abnormal motor movements Speech: normal rate/rhythm/volume of speech Affect: + anxious affect (brightening at times) and mood congruent with affect Mood: + anxious mood; no depressed mood Thought Process: + circumstantial thought process Thought Content: + cognitive distortions and reality based without delusions Suicidal Thoughts: denies suicidal thoughts, denies suicidal plan and denies suicidal intent Homicidal Thoughts: denies homicidal thoughts, denies homicidal plan and denies homicidal intent Hallucinations: no auditory hallucinations and no visual hallucinations Cognition: recent memory grossly intact, remote memory grossly intact, attention grossly intact and language grossly intact Estimated Intelligence: average estimated intelligence Insight: + fair insight Judgment: + fair judgement Vital Signs (Past 24 Hours) Last Vital Signs Temp 36.8 C 09/02/25 06:44 Pulse 97 H 09/02/25 06:44 Resp 16 09/02/25 06:44 BP 118/78 09/02/25 06:45 Pulse Ox 99 09/02/25 06:44 O2 Del Method Room Air 09/02/25 06:44 Results & Data ([facility]) Current Inpatient Medications Current Inpatient Medications: Current Inpatient Medications Acetaminophen (Acetaminophen 325 Mg Tab) 650 mg PO Q4H PRN PRN Reason: Headache or Minor Fever Stop: 09/13/25 23:49 Al Hydrox/Mg Hydrox/Simethicone (Aluminum/Magnesium Susp 30 Ml Udc) 30 ml PO Q4H PRN PRN Reason: GI Upset Stop: 09/13/25 23:49 Bismuth Subsalicylate (Bismuth Subsalicylate 262 Mg Chew) 2 tab PO Q30M PRN PRN Reason: Loose Stool/Diarrhea Stop: 09/13/25 23:49 Lorazepam (Lorazepam 1 Mg Tab) 1 mg PO BID PRN PRN Reason: Anxiety Stop: 09/15/25 19:39 Last Admin: 08/20/25 17:15 Dose: 1 mg Magnesium Hydroxide (Magnesium Hydroxide Susp 30 Ml Udc) 30 ml PO DAILY PRN PRN Reason: Constipation Stop: 09/13/25 23:49 Mirtazapine (Mirtazapine Tab 15 Mg Tab) 15 mg PO HS PRN PRN Reason: insomnia Stop: 09/21/25 21:59 Propranolol HCl (Propranolol Hcl 10 Mg Tab) 10 mg PO TID PRN PRN Reason: Anxiety Stop: 09/18/25 11:29 Sertraline HCl (Sertraline Hcl 50 Mg Tablet) 75 mg PO QAM EDIE Stop: 09/30/25 08:59 Last Admin: 09/01/25 09:30 Dose: 75 mg Sodium Chloride (Sodium Chloride 0.65% Na Soln 45 Ml ([place])) 1 - 2 sprays NA PRN PRN PRN Reason: Nasal Dryness/Congestion Stop: 09/13/25 23:49 Mental Health & Subst Abuse Tx Psychiatrist Name of Psychiatrist: Cristina Self Psychiatrist's Date Of Appointment With Psychiatric Provider: 11/02/25 Time of Appointment with Psychiatrist: 2:50p Psychiatric Appointment Comment: [address] [facility] [address], [place] [address] Therapist Name of Therapist: Maggi (Intake) - In person Therapist's Date of Therapist Appointment: 09/18/25 Time of Therapist Appointment: 3:30PM arrival, 4PM appt Therapy Appointment Comment: [address], [address], [place] [address] Retail Performance Coach Name of Retail Performance Coach: Aislinn Torres CM Shruthi Phone Number for Retail Performance Coach: [phone] Case Management Appointment Comment: [facility] [phone] Post Discharge Appointments Primary Care Physician Name Of Family Doctor/PCP: Dr. Pandey ([facility]) [address], [place] [address] Primary Care Date of Future Appointment with PCP: 09/10/25 Time of Appointment with PCP: 2pm Provider Appointment Comment: Appt scheduled for med managment and PCP notified to refer for mammogram Partial or Psych Rehab Name of Partial or Psych Rehab: [facility] (extended outpatient program- starts in October 2025) Phone Number of Partial or Psych Rehab: [phone] Partial or Psych Rehab Appointment Comment: They will email intake forms for EOP program to . Contact Information Discharge Discharge Address: [address] [place] [address] Angela Bernard [place] [id number]
--- NOTE | 2025-09-03 09:10 | Psychiatric Progress Note ---
Date of Service September 03, 2025 Impression / Recommendations Impression PRASHANT SCHMIDT is a 35-year-old F who currently lives in at home with her 17 y/o son, has a history of depression and anxiety, and was admitted on 08/14/25 23:45 on a 201 voluntary commitment for SI without plan or intent, in the setting of daily panic attacks over the past two weeks, and medication nonadherence over the past 2 years. Diagnostically consistent with severe panic disorder and MDDR, severe. BPD also a possibility. Discussed at length the pharmacologic options for treatment, including primarily returning to Zoloft (if pt is willing to tolerate possible weight gain, trying a different SSRI such as Prozac (which is typically weight neutral), or switching to SNRI class (like Cymbalta). Reviewed R/B of all options. Pt stated she wanted to consider and did not want to decide until the end of the day. I met with her a second time, and she wanted to try Prozac. A: Ongoing anxiety but mood showing signs of gradual improvement, no recent panic attacks and improving insight. Ongoing discharge planning, she has no access to transportation which complicates her access to medications after discharge especially with federal holiday further limiting community resources tomorrow. SW coordinating with her outpatient supports. She declines a support meeting. MNPR due to history of poor boundaries at times, periods of dysregulated behaviors when anxious Overall, I spent a total of 36 minutes on this case including meeting with the patient, reviewing the chart, nursing report, multidisciplinary team meeting, orders, and documentation. (1) Panic disorder: (2) Major depressive disorder, recurrent severe without psychotic features: (3) Superficial thrombophlebitis of left leg: (4) Non-adherence to medical treatment: Plan 09/03/2025: -Continue current medications and tx plan 09/02/2025: -Continue current medications and tx plan. 09/01/2025: -Continue current medications and tx plan -Change mirtazapine from 15mg HS scheduled to 15mg prn for insomnia 08/31/25: - Continue current meds and treatment 08/30/25: -Increase Zoloft to 75mg daily. 08/29/25: -Continue current meds and treatment. 08/28/25: -continue current meds and treatment. -Gave pt YBOCS to complete 08/27/25: -continue current treatment and meds -behavioral plan reviewed in treatment team, and nursing will discuss with patient today -if no escalation of behaviors in the next day, might return to regular linens tomorrow. 08/26/25: - increase Zoloft to 50 mg daily - encouraged use of propranolol, which is now PRN - continue to encourage Remeron for sleep which patient declines - continue safety linens. She should have only 1 outfit at a time. - Staff is working on a behavioral plan, which we will review at treatment team tomorrow. 08/25/25: - Continue current medications, encourage patient to utilize the medicines that are available to her. - Encouraged active coping by participating in self-directed activities, rather than isolating/being sedentary (which tends to lead to excessive rumination). - Continue safety linens. She can have 1 outfit at a time to minimize risk. Continues on normal tray. 08/24/2025: -Return to normal clothes, continue with safety linens -Consider further titration of sertraline in next 1-2 days once she is agreeable to this -Ongoing encouragement to try mirtazapine or other sleep medication 08/23/2025: -Continue current medications -Safety linens, paper scrubs -Can continue with normal diet tray as she turns in her silverware and eats in the dining area in front of staff 08/22/2025: -Discontinue fluoxetine -Start sertraline 25mg daily tomorrow -Working on exposure ladder/reward menu for anxious components of treatment -12 hours of vital sign checks tomorrow (6am-6pm) if she takes mirtazapine tonight as she self-identifies this as a reward 08/21/2025: -Continue current medications and tx plan 08/20/2025: -Continue current medications and tx plan 08/19/2025: -Start mirtazapine 15mg HS -Start propranolol 10mg TID scheduled 08/18/2025: -Increase fluoxetine to 20mg daily -Ativan 1mg BID po prn for panic attacks 08/17/25: Utilize CBT, and encouraged patient to identify coping skills to try out. Continuing to encourage as needed use. Giving more time on Prozac. Also ordered labs to rule out other causes of hypertension and tachycardia, which are occurring intermittently. 08/16/25: continue current treatment and medications, and give more time. 08/15/25: The patient was admitted to the [facility] ([facility] inpatient mental health unit) on q15 min checks (behavioral with suicide precautions) for safety. The patient will participate in group, recreational, and milieu therapies and will be offered additional individual and family sessions as clinically appropriate. Meds started: Prozac 10mg in AM propranolol 10mg TID PRN anxiety (hold if SBP<100) Home meds continued: none Hospital medicine consult - they ordered CT chest to r/o PE. Inventory Assets Strengths: help seeking Needs: outpatient providers, caregiver support Suicide Risk Level Suicide Risk Level: Moderate (q15 min suicide checks) (high level of distress with panic attacks and SI prior to admission and during her initial hospitalization but now reports improving mood, lessening of anxiety and more future-focused. She denies SI, feels safe on the unit and feels able to reach out to staff for support) Suicide Risk Level Comments: Risk Factors Assessment Male: No : Yes Do You Have Access To A Gun?: No Health Problems: Yes Mental Health Diagnoses: Yes Substance Use Disorders: No Previous Attempt: Yes Family History of Suicide: No Previous Psychiatric Hospitalization: Yes Hopelessness: Yes Protective Factors Assessment : No Responsible for Young Children: Yes (son is a minor, but now in [facility] custody) Employed: Yes Supportive Family: No Interval History Identifying Information PRASHANT SCHMIDT is a 35-year-old F who currently lives in at home with her 17 y/o son, has a history of depression and anxiety, and was admitted on 08/14/25 23:45 on a 201 voluntary commitment for SI without plan or intent, in the setting of daily panic attacks over the past two weeks, and medication nonadherence over the past 2 years. Diagnostically consistent with severe panic disorder and MDDR, severe. BPD also a possibility. Chief Complaint "I had a rough morning". Review of Systems Sleep Information Total Hours of Sleep: 4.5 Meal Information Percent Meal Consumed - Breakfast: 50 Percent Meal Consumed - Lunch: 75 Percent Meal Consumed - Dinner: 65 Subjective Subjective Patient was seen & assessed and interval progress reviewed with treatment team. Attending groups and bright affect with peers. Rated her mood as "hopeful" last evening. Today reports difficult morning due to anxiety and asks for reassurance about her BP given that it's lowered since admission. She feels her anxiety remains "there and it sucks but I have no intense fear" like she did with the panic attacks. She pleased to be on her fourth day without a panic attack. Expresses some frustration that her outpatient CM had to cancel their meeting today. Physical Exam Psychiatric Orientation: alert and oriented x 3 Apperance: appropriately dressed and appropriately groomed Eye Contact: good eye contact Motor Behavior: steady gait and station and no abnormal motor movements Speech: normal rate/rhythm/volume of speech Affect: + anxious affect (brightening at times) and mood congruent with affect Mood: + anxious mood; no depressed mood Thought Process: + circumstantial thought process Thought Content: + cognitive distortions and reality based without delusions Suicidal Thoughts: denies suicidal thoughts, denies suicidal plan and denies suicidal intent Homicidal Thoughts: denies homicidal thoughts, denies homicidal plan and denies homicidal intent Hallucinations: no auditory hallucinations and no visual hallucinations Cognition: recent memory grossly intact, remote memory grossly intact, attention grossly intact and language grossly intact Estimated Intelligence: average estimated intelligence Insight: + fair insight Judgment: + fair judgement Vital Signs (Past 24 Hours) Last Vital Signs Temp 36.4 C L 09/03/25 06:00 Pulse 121 H 09/03/25 06:26 Resp 16 09/03/25 06:00 BP 108/72 09/03/25 06:26 Pulse Ox 99 09/02/25 06:44 O2 Del Method Room Air 09/02/25 06:44 Results & Data ([facility]) Current Inpatient Medications Current Inpatient Medications: Current Inpatient Medications Acetaminophen (Acetaminophen 325 Mg Tab) 650 mg PO Q4H PRN PRN Reason: Headache or Minor Fever Stop: 09/13/25 23:49 Al Hydrox/Mg Hydrox/Simethicone (Aluminum/Magnesium Susp 30 Ml Udc) 30 ml PO Q4H PRN PRN Reason: GI Upset Stop: 09/13/25 23:49 Bismuth Subsalicylate (Bismuth Subsalicylate 262 Mg Chew) 2 tab PO Q30M PRN PRN Reason: Loose Stool/Diarrhea Stop: 09/13/25 23:49 Lorazepam (Lorazepam 1 Mg Tab) 1 mg PO BID PRN PRN Reason: Anxiety Stop: 09/15/25 19:39 Last Admin: 08/20/25 17:15 Dose: 1 mg Magnesium Hydroxide (Magnesium Hydroxide Susp 30 Ml Udc) 30 ml PO DAILY PRN PRN Reason: Constipation Stop: 09/13/25 23:49 Mirtazapine (Mirtazapine Tab 15 Mg Tab) 15 mg PO HS PRN PRN Reason: insomnia Stop: 09/21/25 21:59 Propranolol HCl (Propranolol Hcl 10 Mg Tab) 10 mg PO TID PRN PRN Reason: Anxiety Stop: 09/18/25 11:29 Sertraline HCl (Sertraline Hcl 50 Mg Tablet) 75 mg PO QAM EDIE Stop: 09/30/25 08:59 Last Admin: 09/02/25 09:32 Dose: 75 mg Sodium Chloride (Sodium Chloride 0.65% Na Soln 45 Ml ([place])) 1 - 2 sprays NA PRN PRN PRN Reason: Nasal Dryness/Congestion Stop: 09/13/25 23:49 Mental Health & Subst Abuse Tx Psychiatrist Name of Psychiatrist: Cristina Self Psychiatrist's Date Of Appointment With Psychiatric Provider: 11/02/25 Time of Appointment with Psychiatrist: 2:50p Psychiatric Appointment Comment: [address] [facility] [address], [place] [address] Therapist Name of Therapist: Maggi (Intake) - In person Therapist's Date of Therapist Appointment: 09/18/25 Time of Therapist Appointment: 3:30PM arrival, 4PM appt Therapy Appointment Comment: [address], [address], [facility] [address] Archeologist Name of Archeologist: Aislinn Hawkins Phone Number for Archeologist: [phone] Case Management Appointment Comment: [facility] [phone] Post Discharge Appointments Primary Care Physician Name Of Family Doctor/PCP: [facility] ([facility] [address] [place] [id number] Primary Care Date of Future Appointment with PCP: 09/10/25 Time of Appointment with PCP: 2pm Provider Appointment Comment: Appt scheduled for med managment and PCP notified to refer for mammogram Partial or Psych Rehab Name of Partial or Psych Rehab: [facility] (extended outpatient program- starts in October 2025) Phone Number of Partial or Psych Rehab: [phone] Partial or Psych Rehab Appointment Comment: They will email intake forms for EOP program to [email or web address]. Contact Information Discharge Discharge Address: [address] [place] [address] Angela Valencia [address] [address]
--- NOTE | 2025-09-04 09:03 | Psychiatric Progress Note ---
Date of Service September 04, 2025 Impression / Recommendations Impression PRASHANT SCHMIDT is a 35-year-old F who currently lives in at home with her 17 y/o son, has a history of depression and anxiety, and was admitted on 08/14/25 23:45 on a 201 voluntary commitment for SI without plan or intent, in the setting of daily panic attacks over the past two weeks, and medication nonadherence over the past 2 years. Diagnostically consistent with severe panic disorder and MDDR, severe. BPD also a possibility. Discussed at length the pharmacologic options for treatment, including primarily returning to Zoloft (if pt is willing to tolerate possible weight gain, trying a different SSRI such as Prozac (which is typically weight neutral), or switching to SNRI class (like Cymbalta). Reviewed R/B of all options. Pt stated she wanted to consider and did not want to decide until the end of the day. I met with her a second time, and she wanted to try Prozac. A: Ongoing anxiety but gradually improving and no recent panic attacks. She is much more hopeful and very future-oriented. She declines a support meeting but has been involving her supports including her outpatient watch caser and new peer support. MNPR due to need to protect sleep given difficulty with insomnia Overall, I spent a total of 38 minutes on this case including meeting with the patient, reviewing the chart, nursing report, multidisciplinary team meeting, orders, and documentation. (1) Panic disorder: (2) Major depressive disorder, recurrent severe without psychotic features: (3) Superficial thrombophlebitis of left leg: (4) Non-adherence to medical treatment: Plan 09/03/2025: -Continue current medications and tx plan 09/02/2025: -Continue current medications and tx plan. 09/01/2025: -Continue current medications and tx plan -Change mirtazapine from 15mg HS scheduled to 15mg prn for insomnia 08/31/25: - Continue current meds and treatment 08/30/25: -Increase Zoloft to 75mg daily. 08/29/25: -Continue current meds and treatment. 08/28/25: -continue current meds and treatment. -Gave pt YBOCS to complete 08/27/25: -continue current treatment and meds -behavioral plan reviewed in treatment team, and nursing will discuss with patient today -if no escalation of behaviors in the next day, might return to regular linens tomorrow. 08/26/25: - increase Zoloft to 50 mg daily - encouraged use of propranolol, which is now PRN - continue to encourage Remeron for sleep which patient declines - continue safety linens. She should have only 1 outfit at a time. - Staff is working on a behavioral plan, which we will review at treatment team tomorrow. 08/25/25: - Continue current medications, encourage patient to utilize the medicines that are available to her. - Encouraged active coping by participating in self-directed activities, rather than isolating/being sedentary (which tends to lead to excessive rumination). - Continue safety linens. She can have 1 outfit at a time to minimize risk. Continues on normal tray. 08/24/2025: -Return to normal clothes, continue with safety linens -Consider further titration of sertraline in next 1-2 days once she is agreeable to this -Ongoing encouragement to try mirtazapine or other sleep medication 08/23/2025: -Continue current medications -Safety linens, paper scrubs -Can continue with normal diet tray as she turns in her silverware and eats in the dining area in front of staff 08/22/2025: -Discontinue fluoxetine -Start sertraline 25mg daily tomorrow -Working on exposure ladder/reward menu for anxious components of treatment -12 hours of vital sign checks tomorrow (6am-6pm) if she takes mirtazapine tonight as she self-identifies this as a reward 08/21/2025: -Continue current medications and tx plan 08/20/2025: -Continue current medications and tx plan 08/19/2025: -Start mirtazapine 15mg HS -Start propranolol 10mg TID scheduled 08/18/2025: -Increase fluoxetine to 20mg daily -Ativan 1mg BID po prn for panic attacks 08/17/25: Utilize CBT, and encouraged patient to identify coping skills to try out. Continuing to encourage as needed use. Giving more time on Prozac. Also ordered labs to rule out other causes of hypertension and tachycardia, which are occurring intermittently. 08/16/25: continue current treatment and medications, and give more time. 08/15/25: The patient was admitted to the [facility] ([facility] mental [facility] unit) on q15 min checks (behavioral with suicide precautions) for safety. The patient will participate in group, recreational, and milieu therapies and will be offered additional individual and family sessions as clinically appropriate. Meds started: Prozac 10mg in AM propranolol 10mg TID PRN anxiety (hold if SBP<100) Home meds continued: none Hospital medicine consult - they ordered CT chest to r/o PE. Inventory Assets Strengths: help seeking Needs: outpatient providers, caregiver support Suicide Risk Level Suicide Risk Level: Low (q15 min observation checks) (no depression, anxiety imp roving, hopeful, She denies SI, feels safe on the unit and feels able to reach out to staff for support) Suicide Risk Level Comments: Risk Factors Assessment Male: No : Yes Do You Have Access To A Gun?: No Health Problems: Yes Mental Health Diagnoses: Yes Substance Use Disorders: No Previous Attempt: Yes Family History of Suicide: No Previous Psychiatric Hospitalization: Yes Hopelessness: Yes Protective Factors Assessment : No Responsible for Young Children: Yes (son is a minor, but now in [facility] custody) Employed: Yes Supportive Family: No Interval History Identifying Information PRASHANT SCHMIDT is a 35-year-old F who currently lives in at home with her 17 y/o son, has a history of depression and anxiety, and was admitted on 08/14/25 23:45 on a 201 voluntary commitment for SI without plan or intent, in the setting of daily panic attacks over the past two weeks, and medication nonadherence over the past 2 years. Diagnostically consistent with severe panic disorder and MDDR, severe. BPD also a possibility. Chief Complaint "Still anxious but I think it will get better over time". Review of Systems Sleep Information Total Hours of Sleep: 4 Meal Information Percent Meal Consumed - Breakfast: 50 Percent Meal Consumed - Lunch: 50 Percent Meal Consumed - Dinner: 95 Subjective Subjective Patient was seen & assessed and interval progress reviewed with nursing and social work. Attending groups. Worries about how she's tolerate being at home but also wants to get home. Today reports ongoing anxiety but no panic attacks in four days now. Denies any medication side effects. She feels hopeful the medication is going to continue to work to lessen her anxiety over time. Reflects on other coping skills she's been using in the meantime such as a heating pad. She feels very confident her sleep will improve once her anxiety lessens as the sertraline has more time to take effect since this has been the pattern in the past. She plans to stay on sertraline long-term and not try to wean off it as she's done historically given this is now the third major anxiety episode she's experienced after stopping an SSRI. Physical Exam Psychiatric Orientation: alert and oriented x 3 Apperance: appropriately dressed and appropriately groomed Eye Contact: good eye contact Motor Behavior: steady gait and station and no abnormal motor movements Speech: normal rate/rhythm/volume of speech Affect: + anxious affect (brightening at times) and mood congruent with affect Mood: + anxious mood; no depressed mood Thought Process: goal directed thought process Thought Content: reality based without delusions Suicidal Thoughts: denies suicidal thoughts, denies suicidal plan and denies suicidal intent Homicidal Thoughts: denies homicidal thoughts, denies homicidal plan and denies homicidal intent Hallucinations: no auditory hallucinations and no visual hallucinations Cognition: recent memory grossly intact, remote memory grossly intact, attention grossly intact and language grossly intact Estimated Intelligence: average estimated intelligence Insight: good insight Judgment: + fair judgement Vital Signs (Past 24 Hours) Last Vital Signs Temp 36.8 C 09/04/25 06:00 Pulse 104 H 09/04/25 06:00 Resp 16 09/04/25 06:00 BP 96/66 L 09/04/25 06:48 Pulse Ox 99 09/04/25 06:00 O2 Del Method Room Air 09/04/25 06:00 Results & Data ([facility]) Current Inpatient Medications Current Inpatient Medications: Current Inpatient Medications Acetaminophen (Acetaminophen 325 Mg Tab) 650 mg PO Q4H PRN PRN Reason: Headache or Minor Fever Stop: 09/13/25 23:49 Al Hydrox/Mg Hydrox/Simethicone (Aluminum/Magnesium Susp 30 Ml Udc) 30 ml PO Q4H PRN PRN Reason: GI Upset Stop: 09/13/25 23:49 Bismuth Subsalicylate (Bismuth Subsalicylate 262 Mg Chew) 2 tab PO Q30M PRN PRN Reason: Loose Stool/Diarrhea Stop: 09/13/25 23:49 Lorazepam (Lorazepam 1 Mg Tab) 1 mg PO BID PRN PRN Reason: Anxiety Stop: 09/15/25 19:39 Last Admin: 08/20/25 17:15 Dose: 1 mg Magnesium Hydroxide (Magnesium Hydroxide Susp 30 Ml Udc) 30 ml PO DAILY PRN PRN Reason: Constipation Stop: 09/13/25 23:49 Mirtazapine (Mirtazapine Tab 15 Mg Tab) 15 mg PO HS PRN PRN Reason: insomnia Stop: 09/21/25 21:59 Propranolol HCl (Propranolol Hcl 10 Mg Tab) 10 mg PO TID PRN PRN Reason: Anxiety Stop: 09/18/25 11:29 Sertraline HCl (Sertraline Hcl 50 Mg Tablet) 75 mg PO QAM EDIE Stop: 09/30/25 08:59 Last Admin: 09/03/25 09:38 Dose: 75 mg Sodium Chloride (Sodium Chloride 0.65% Na Soln 45 Ml ([place])) 1 - 2 sprays NA PRN PRN PRN Reason: Nasal Dryness/Congestion Stop: 09/13/25 23:49 Mental Health & Subst Abuse Tx Psychiatrist Name of Psychiatrist: Cristina Self Psychiatrist's Date Of Appointment With Psychiatric Provider: 11/02/25 Time of Appointment with Psychiatrist: 2:50p Psychiatric Appointment Comment: [address], [place] [address] Therapist Name of Therapist: Maggi (Intake) - In person Therapist's Date of Therapist Appointment: 09/18/25 Time of Therapist Appointment: 3:30PM arrival, 4PM appt Therapy Appointment Comment: [address], [address], [facility] [address] Property [employer] Casualty Insurance Agent Name of Property And Casualty Insurance Agent: Aislinn Hawkins Phone Number for Property And Casualty Insurance Agent: [phone] Case Management Appointment Comment: [facility] - [phone] Post Discharge Appointments Primary Care Physician Name Of Family Doctor/PCP: Dr. Pandey (Mary Vaughn) [address] [place] [address] Primary Care Date of Future Appointment with PCP: 09/10/25 Time of Appointment with PCP: 2pm Provider Appointment Comment: Appt scheduled for med managment and PCP notified to refer for mammogram Partial or Psych Rehab Name of Partial or Psych Rehab: [facility] (extended outpatient program- starts in October 2025) Phone Number of Partial or Psych Rehab: [phone] Partial or Psych Rehab Appointment Comment: They will email intake forms for EOP program to [email or web address] Contact Information Discharge Discharge Address: [address] [place] [address] Angela Valencia [address] [address]
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
== END 2025-09-05 14:00 | disposition home or self-care (01) | DRG 880 ==
LOC: ED 17:32 → 3S 23:43 → SUATTDRO 23:45 → 3S 23:45